=== PATIENT | female | born 1940 | race Caucasian/White ===

== ENCOUNTER 2025-02-07 14:09 | Emergency (ER) | payer OTHER, SELFPAY ==
[2025-02-07 14:12] VITALS: BP 135/94
[2025-02-07 14:46] LABS: Hematocrit 35.0 % (37.0-47.0); Hemoglobin 12.4 g/dL (12.0-16.0); Mean Corp Hgb Conc. 35.4 g/dL (33.0-37.0); Mean Corpuscular Volume 88.4 fL (81.0-99.0); Nucleated Red Blood Cells % 0 %; Platelet Count 205 10^3/uL (130-400); Red Cell Dist. Width 13.2 % (11.5-14.5)
[2025-02-07 15:10] LABS: ALT (SGPT) 63 U/L (0-35); AST (SGOT) 54 U/L (14-36); Albumin 4.5 g/dl (3.5-5.0); Alkaline Phosphatase 33 U/L (38-126); Blood Urea Nitrogen 16 mg/dl (7-17); Calcium 9.6 mg/dl (8.4-10.2); Carbon Dioxide 34 mmol/L (22-30); Chloride 97 mmol/L (98-107); Glucose 113 mg/dl (70-99); Potassium 3.9 mmol/L (3.5-5.1); Sodium 138 mmol/L (135-145); Total Protein 7.2 g/dl (6.3-8.2); eGFR > 60.00
--- NOTE | 2025-02-07 16:01 | ED.GENMED ---
History of Present Illness
General
Chief Complaint: Blood Pressure Problem
Time Seen by Provider: 02/07/25 16:01
History of Present Illness
History of Present Illness:
FOCUSED PAST MEDICAL HISTORY
- High blood pressure, pulmonary hypertension, diabetes
REVIEW OF OLD RECORDS
- I reviewed records, the patient had pulmonary function test through [facility] in 2021
Note:
CHIEF COMPLAINT(S)
Elevated blood pressure readings at home.
HISTORY OF PRESENT ILLNESS
The patient is an 84-year-old female with a history of pulmonary hypertension and recent cellulitis, presenting due to elevated blood pressure readings at home. She reports fluctuations in blood pressure over the past few months, with significant
changes in her antihypertensive medications. Initially, she switched from Propranolol to Carvedilol, had leg swelling on Amlodipine. She was also started on Lisinopril and Clonidine, with her current regimen including Carvedilol 25 mg twice daily,
Clonidine 0.1 mg twice daily, and Lisinopril 20 mg twice daily. Despite medication changes, her morning blood pressure was 229/118 mmHg, accompanied by a headache located at the back of her neck. Post-medication, blood pressure remained elevated at
202 mmHg.
The patient also takes Nifedipine in the form of 20 mg thrice daily and Sildenafil for pulmonary hypertension. She noted that Nifedipine causes a potential drop in her blood pressure. Additionally, she is on Optravi once in the morning. Current
vital sign readings in the clinic indicated variability, but manually obtained blood pressure reported at 140/60 mmHg, attributed potentially to artifact or alternative vessel noise.
Additional symptoms included headaches, which improved with acetaminophen. She attributes these headaches possibly to her CPAP machine but recognizes a connection with her high blood pressure. An additional dose of Clonidine was administered in the
clinic to manage acute elevation.
CHRONIC MEDICAL CONDITIONS SIGNIFICANTLY AFFECTING CARE
- Pulmonary hypertension
MEDICATIONS
- Carvedilol 25 mg twice daily
- Clonidine 0.1 mg twice daily
- Lisinopril 20 mg twice daily
- ???Nifedipine 20 mg three times daily�uncertain if she is taking it
- Sildenafil for pulmonary hypertension�only took 1 dose so far today of her normal 3 doses per day
- Optravi once in the morning
PHYSICAL EXAM
General: Alert, no acute distress.
Cardiovascular: Manually obtained blood pressure reported fluctuating; artifact noted.
Neurological: Notable neck headache, improved with acetaminophen.
PLAN
- Administer an extra dose of Clonidine 0.1 mg in the clinic to manage elevated blood pressure.
- Reassess blood pressure after administration of additional Clonidine.
- Consider adjusting medication regimen if not resolving or consistent blood pressure management is not achieved.
- Monitor for headache symptoms, particularly if associated with blood pressure elevation.
DIFFERENTIAL DIAGNOSIS
The differential diagnosis includes, in no particular order and is not limited to:
- Essential hypertension
- Secondary hypertension
- Hypertensive crisis
- Medication-induced hypertension fluctuation
- Cerebral vascular event
- Aneurysmal dilation
- Renal artery stenosis
- Adrenal mass or hyperactivity (e.g., pheochromocytoma)
- Coarctation of the aorta
- Pulmonary embolism
RADIOLOGY
-
EKG
- Sinus 79, bifascicular block with no old to compare
LABS
- White count and hemoglobin are normal, bicarb is 34, minor transaminase elevation
UPDATE
-SUMMARY OF ENCOUNTER
The patient, an 84-year-old female, presented to the emergency department due to concerns regarding elevated blood pressure readings at home. She is currently on a regimen of antihypertensive medications including Clonidine, Carvedilol, and
Lisinopril. Her main symptom was persistent headaches potentially related to her fluctuating blood pressure. In the emergency department, she received an additional dose of Clonidine to help reduce her blood pressure, which was initially reported as
high as 180/90 mmHg. Upon reassessment, her blood pressure showed signs of improvement, trending downward to around 178/80 mmHg. The decision was made not to conduct a CT scan, deemed low yield since her symptoms were controlled and improving.
DISPOSITION
Discharge
PLAN
The plan involves the patient increasing Clonidine dosing to three times daily to improve better blood pressure control. The patient was advised to have follow-up consultations with both a body and fender mechanic, Dr. Kidd, to specialize in blood pressure
management, and her gas welder, Dr. Matt Padilla, to ensure comprehensive cardiovascular care. She was instructed to monitor her blood pressure at home and encouraged to continue current antihypertensive regimen, including Carvedilol and
Lisinopril. Education was provided regarding the balancing act of treating high blood pressure without causing it to drop too low. The patient was advised to return if symptoms worsen or become concerning.
PATIENT EDUCATION AND COUNSELING
The patient was counseled on the importance of monitoring her blood pressure at home and understanding the balance between treating high blood pressure without causing low blood pressure. Information regarding the potential side effects of blood
pressure medications was provided. She was also educated about the significance of following up with specialized care providers to address her poorly controlled hypertension comprehensively.
FOLLOW-UP INSTRUCTIONS
The patient should follow up with the body and fender mechanic, Dr. Kidd, for specialized blood pressure management, and her gas welder, Dr. Matt Padilla. She was advised to continue monitoring her blood pressure at home and return to the emergency
department if symptoms like headaches persist or worsen.
MEDICATION RECONCILIATION
The patient received an additional dose of Clonidine in the emergency department. She was instructed to increase Clonidine to three times a day for ongoing management of hypertension, along with continuing her existing medications, Carvedilol and
Lisinopril.
MEDICAL DECISION MAKING
-Chronic conditions affecting care: Pulmonary hypertension.
-Data:
Category 1
No additional lab tests performed during this visit. Consideration of a CT scan was deemed unnecessary due to improvement in symptoms�patient states that her headache is nearly gone and significantly improved and she has a normal neurologic
examination.
Category 2
None
Category 3
Discussion of management with recommendations for follow-up with body and fender mechanic Dr. Alberto and gas welder for specialized hypertension management.
-Risk:
Consideration of Admission/Observation: Escalation of care including admission/observation was considered given the complexity and risk of the patients presenting complaint, exam findings, and/or their underlying comorbidities. However, ultimately I
feel the patient is safe for outpatient management with close follow-up. Reasoning: Work-up reassuring, does not reveal any acute life/organ-threatening processes, patients symptoms well-controlled upon reevaluation, reexamination is reassuring,
vitals are stable, patient agreeable with discharge, reliable for follow-up.
DIAGNOSIS
1. Essential Hypertension (I10)
2. Pulmonary Hypertension (I27.0)
I personally took another blood pressure manually and it was 178/80 prior to discharge.
Phy Exam
Physical Exam
Physical Exam:
See HPI
Course
Orders/Labs/Results
Orders:
Orders
02/07/25 14:20
Electrocardiogram (*1) Urgent
Reason for Study: Hypertension, Benign
EKG- Treatment ONCE
02/07/25 14:36
Complete Blood Count/With Diff Urgent
Comprehensive Metabolic Panel Urgent
Abnormal Lab Results
02/07/25
14:36
RBC 3.96 L 10^6/uL
(4.20-5.40)
Hct 35.0 L %
(37.0-47.0)
MCH 31.3 H pg
(27.0-31.0)
Absolute Lymphs (auto) 0.8 L 10^3/uL
(1.2-3.4)
Absolute Monos (auto) 1.0 H 10^3/uL
(0.1-0.6)
Lymphocytes % 10.5 L %
(20.5-51.1)
Monocytes % 12.1 H %
(1.7-9.3)
Chloride 97 L mmol/L
(98-107)
Carbon Dioxide 34 H mmol/L
(22-30)
Glucose 113 H mg/dl
(70-99)
AST 54 H U/L
(14-36)
ALT 63 H U/L
(0-35)
Alkaline Phosphatase 33 L U/L
(38-126)
02/07/25 14:36
02/07/25 14:36
Vital Signs
Initial and Last Documented VS:
Initial Vital Signs
Temp Pulse Resp BP Pulse Ox
36.7 C 76 16 135/94 98
02/07/25 14:12 02/07/25 14:12 02/07/25 14:12 02/07/25 14:12 02/07/25 14:12
Last Documented Vital Signs
Temp Pulse Resp BP Pulse Ox
36.7 C 76 16 180/77 98
02/07/25 14:12 02/07/25 14:12 02/07/25 14:12 02/07/25 17:03 02/07/25 16:03
*Pulse Oximetry
SaO2: 98
Oxygen Mode of Delivery: Room air
Patient hypoxic: no
*Critical Care Note
Total Time (30-74mins, 75-104mins- exclusive of procedures): Not Applicable
ED Attending Note
-
Portions of this chart may have been created with voice recognition software.� Occasional wrong word or��sound alike� substitutions may have occurred due to the inherent limitations of voice recognition software.
Discharge Plan
Departure
Patient Disposition: Home (Routine Discharge)
Date of Disposition: 02/07/25
Time of Disposition: 17:49
Patient with high blood pressure during this ER visit?: Yes
Discharge Problem:
High blood pressure
Instructions: High Blood Pressure (DC), BLOOD PRESSURE
Referrals:
Antonino Alberto DO [Active, Nephrology]
Bharat Walton MD [Family Provider, Internal Medicine]
Activity Restrictions/Additional Instructions:
I have given you the contact information for a body and fender mechanic (hypertensive specialist)-Dr. Alberto. For now, I recommend that you increase the clonidine to 3 times per day. You can take the middle dose at some point in the afternoon. Return here
if worse or other concerns. Your kidney function is normal.
Interventions
Interventions:
*Risk Screen - Suicide Last Done: 02/07/25 14:12
*General Assessment Last Done: 02/07/25 16:31
*Neglect/Abuse Screening Last Done: 02/07/25 14:12
*ED- Fall Risk Assessment Last Done: 02/07/25 16:31
*ED COVID-19 Vaccine History Last Done: 02/07/25 16:31
*ED Influenza Vaccine History Last Done: 02/07/25 16:31
ED- Cardiac Assessment Last Done: 02/07/25 16:31
ED- Neurological Assessment Last Done: 02/07/25 16:31
ED- Pulmonary Assessment Last Done: 02/07/25 16:31
Discharge Date and Time
Print Language: FRENCH
[2025-02-07 16:30] VITALS: BP 144/89; BP 208/98; BP 211/89
[2025-02-07 17:03] VITALS: BP 180/77
== END 2025-02-07 18:36 | disposition home or self-care (01) ==
LOC: EMR 14:09
PROVIDERS: EMERGENCY PHYSICIAN Emergency Medicine; FAMILY PHYSICIAN Internal Medicine
DX: I10 Essential (primary) hypertension (principal); I27.20 Pulmonary hypertension, unspecified; E11.9 Type 2 diabetes mellitus without complications; Z79.899 Other long term (current) drug therapy
CPT/HCPCS: 99284; 80053; 85025; 93005

== ENCOUNTER 2025-02-26 21:19 | Inpatient (IN) | payer OTHER, SELFPAY ==
[2025-02-26] VITALS (7 sets, daily range): BP systolic 134–213; BP diastolic 64–118; BMI 31.4
[2025-02-26 17:29] LABS: Glucose - Point of Care 230 mg/dl (70-99)
[2025-02-26 18:45] LABS: ALT (SGPT) 50 U/L (0-35); AST (SGOT) 55 U/L (14-36); Albumin 4.4 g/dl (3.5-5.0); Alkaline Phosphatase 37 U/L (38-126); Blood Urea Nitrogen 37 mg/dl (7-17); Calcium 9.6 mg/dl (8.4-10.2); Carbon Dioxide 34 mmol/L (22-30); Chloride 77 mmol/L (98-107); Glucose 198 mg/dl (70-99); Potassium 3.6 mmol/L (3.5-5.1); Sodium 115 mmol/L (135-145); Total Protein 6.9 g/dl (6.3-8.2); eGFR 55.55
--- NOTE | 2025-02-26 18:48 | ED.GENMED ---
History of Present Illness
<Rayshawn Maldonado PA-C - Last Filed: 02/26/25 19:42>
General
Chief Complaint: Weakness
Source: patient
Exam Limitations: none
Time Seen by Provider: 02/26/25 18:20
History of Present Illness
History of Present Illness:
84-year-old female presents from home where she lives with her after experiencing generalized weakness. She describes episodes of vomiting 2 days ago. She has been eating lightly since then. She is followed by nephrology for her
hypertension. She states she has been urinating frequently. She hit her head when she fell today. She notes a bump to the back of her head. She denies chest pain or shortness of breath. She notes generalized weakness.
Phy Exam
<Rayshawn Maldonado PA-C - Last Filed: 02/26/25 19:42>
Physical Exam
Physical Exam:
General: Well-appearing female no acute respiratory distress
HEENT: Normal cephalic hematoma noted to the back of the head
Heart: Regular rate and rhythm
Lungs: Clear no wheeze
Course
<Rayshawn Maldonado PA-C - Last Filed: 02/26/25 19:42>
Orders/Labs/Results
Orders:
Orders
02/26/25 15:01
EKG [Electrocardiogram (*1)] Urgent
Reason for Study: Fatigue / Weakness
EKG- Treatment ONCE
02/26/25 17:25
Bedside Glucose- Treatment ONCE
02/26/25 17:46
CBC/With Diff [Complete Blood Count/With Diff] Routine
CMP [Comprehensive Metabolic Panel] Urgent
Serum Osmolality Urgent
Comment: ADD ON
02/26/25 18:43
CT Cervical Spine W/o Iv Contr Urgent
Comment:
Reason For Exam: fall
CT Head W/o Iv Contrast Urgent
Comment:
Reason For Exam: fall
STOOL [C difficile Antigen & Toxins] Urgent
JUAN Source: Feces/Stool
Specimen Description:
Stool Culture Urgent
JUAN Source: Feces/Stool
Specimen Description:
02/26/25 18:47
Add On- LAB Urgent
Tests Added?: serum osm
02/26/25 18:56
Osmolality, Random Urine Urgent
Date Specimen was Collected: 02/26/25
Time Specimen was Collected: 18:53
Urinalysis Reflex To Culture Urgent
Date Specimen was Collected: 02/26/25
Time Specimen was Collected: 18:53
Urine Microscopic Reflex Cult Urgent
Urine Sodium Urgent
Date Specimen was Collected: 02/26/25
Time Specimen was Collected: 18:53
Urine Culture Urgent
JUAN Source: U
Specimen Description:
Date Specimen was Collected: 02/26/25
Time Specimen was Collected: 18:53
02/26/25 19:08
CR Chest - 2 Views Urgent
Comment:
Reason For Exam: weakness
02/26/25 19:31
NT-proBNP Urgent
02/26/25 20:00
3% Sodium Chloride 250 ml [Sodium Chloride 3%] 250 ml IV ONCE
Abnormal Lab Results
02/26/25 02/26/25 02/26/25
17:27 17:46 18:56
WBC 12.8 H 10^3/uL
(4.8-10.8)
RBC 3.93 L 10^6/uL
(4.20-5.40)
Hct 33.1 L %
(37.0-47.0)
MCH 31.3 H pg
(27.0-31.0)
MCHC 37.2 H g/dL
(33.0-37.0)
Abs Immat Gran (auto) 0.1 H 10^3/uL
(0-0.05)
Absolute Neuts (auto) 11.1 H 10^3/uL
(1.4-6.5)
Absolute Lymphs (auto) 0.6 L 10^3/uL
(1.2-3.4)
Absolute Monos (auto) 1.0 H 10^3/uL
(0.1-0.6)
Neutrophils % 86.5 H %
(42.2-75.2)
Lymphocytes % 4.4 L %
(20.5-51.1)
Sodium 115 L* mmol/L
(135-145)
Chloride 77 L mmol/L
(98-107)
Carbon Dioxide 34 H mmol/L
(22-30)
BUN 37 H mg/dl
(7-17)
Glucose 198 H mg/dl
(70-99)
Serum Osmolality 261 L mOsm/kg
(275-300)
AST 55 H U/L
(14-36)
ALT 50 H U/L
(0-35)
Alkaline Phosphatase 37 L U/L
(38-126)
Ur Occult Blood Reflex 2+ A
(Negative)
Leukocyte Esterase Rfl 3+ A
(Negative)
Urine WBC (Reflex) 60-70 A /HPF
(0-5)
Urine Bacteria (Reflex) Many A
(Negative)
Urine Osmolality 203 L mOsm/kg
(300-900)
Urine Albumin (Reflex) 1+ A
(Neg - Trace)
POC Glucose 230 H mg/dl
(70-99)
02/26/25 17:46
02/26/25 17:46
Vital Signs
Initial and Last Documented VS:
Initial Vital Signs
Temp Pulse Resp BP Pulse Ox
98.2 F 58 14 168/70 100
02/26/25 14:52 02/26/25 14:52 02/26/25 14:52 02/26/25 14:52 02/26/25 14:52
Last Documented Vital Signs
Temp Pulse Resp BP Pulse Ox
98.4 F 66 20 167/107 98
02/26/25 19:20 02/26/25 19:20 02/26/25 19:20 02/26/25 19:18 02/26/25 19:21
<Fausto Kiran, DO - Last Filed: 02/26/25 18:59>
Orders/Labs/Results
Orders:
Orders
02/26/25 15:01
EKG [Electrocardiogram (*1)] Urgent
Reason for Study: Fatigue / Weakness
EKG- Treatment ONCE
02/26/25 17:25
Bedside Glucose- Treatment ONCE
02/26/25 17:46
CBC/With Diff [Complete Blood Count/With Diff] Routine
CMP [Comprehensive Metabolic Panel] Urgent
Serum Osmolality Urgent
Comment: ADD ON
02/26/25 18:43
CT Cervical Spine W/o Iv Contr Urgent
Comment:
Reason For Exam: fall
CT Head W/o Iv Contrast Urgent
Comment:
Reason For Exam: fall
STOOL [C difficile Antigen & Toxins] Urgent
JUAN Source: Feces/Stool
Specimen Description:
Stool Culture Urgent
JUAN Source: Feces/Stool
Specimen Description:
02/26/25 18:47
Add On- LAB Urgent
Tests Added?: serum osm
02/26/25 18:56
Osmolality, Random Urine Urgent
Date Specimen was Collected: 02/26/25
Time Specimen was Collected: 18:53
Urinalysis Reflex To Culture Urgent
Date Specimen was Collected: 02/26/25
Time Specimen was Collected: 18:53
Urine Microscopic Reflex Cult Urgent
Urine Sodium Urgent
Date Specimen was Collected: 02/26/25
Time Specimen was Collected: 18:53
Urine Culture Urgent
JUAN Source: U
Specimen Description:
Date Specimen was Collected: 02/26/25
Time Specimen was Collected: 18:53
02/26/25 19:08
CR Chest - 2 Views Urgent
Comment:
Reason For Exam: weakness
02/26/25 19:31
NT-proBNP Urgent
02/26/25 20:00
3% Sodium Chloride 250 ml [Sodium Chloride 3%] 250 ml IV ONCE
Abnormal Lab Results
02/26/25 02/26/25 02/26/25
17:27 17:46 18:56
WBC 12.8 H 10^3/uL
(4.8-10.8)
RBC 3.93 L 10^6/uL
(4.20-5.40)
Hct 33.1 L %
(37.0-47.0)
MCH 31.3 H pg
(27.0-31.0)
MCHC 37.2 H g/dL
(33.0-37.0)
Abs Immat Gran (auto) 0.1 H 10^3/uL
(0-0.05)
Absolute Neuts (auto) 11.1 H 10^3/uL
(1.4-6.5)
Absolute Lymphs (auto) 0.6 L 10^3/uL
(1.2-3.4)
Absolute Monos (auto) 1.0 H 10^3/uL
(0.1-0.6)
Neutrophils % 86.5 H %
(42.2-75.2)
Lymphocytes % 4.4 L %
(20.5-51.1)
Sodium 115 L* mmol/L
(135-145)
Chloride 77 L mmol/L
(98-107)
Carbon Dioxide 34 H mmol/L
(22-30)
BUN 37 H mg/dl
(7-17)
Glucose 198 H mg/dl
(70-99)
Serum Osmolality 261 L mOsm/kg
(275-300)
AST 55 H U/L
(14-36)
ALT 50 H U/L
(0-35)
Alkaline Phosphatase 37 L U/L
(38-126)
Ur Occult Blood Reflex 2+ A
(Negative)
Leukocyte Esterase Rfl 3+ A
(Negative)
Urine WBC (Reflex) 60-70 A /HPF
(0-5)
Urine Bacteria (Reflex) Many A
(Negative)
Urine Osmolality 203 L mOsm/kg
(300-900)
Urine Albumin (Reflex) 1+ A
(Neg - Trace)
POC Glucose 230 H mg/dl
(70-99)
02/26/25 17:46
02/26/25 17:46
Vital Signs
Initial and Last Documented VS:
Initial Vital Signs
Temp Pulse Resp BP Pulse Ox
98.2 F 58 14 168/70 100
02/26/25 14:52 02/26/25 14:52 02/26/25 14:52 02/26/25 14:52 02/26/25 14:52
Last Documented Vital Signs
Temp Pulse Resp BP Pulse Ox
98.4 F 66 20 167/107 98
02/26/25 19:20 02/26/25 19:20 02/26/25 19:20 02/26/25 19:18 02/26/25 19:21
Ajaylt;Rayshawn Maldonado PA-C - Last Filed: 02/26/25 19:42>
*Pulse Oximetry
SaO2: 100
Oxygen Mode of Delivery: Room air
Patient hypoxic: no
*Critical Care Note
Total Time (30-74mins, 75-104mins- exclusive of procedures): Not Applicable
<Rayshawn Maldonado PA-C - Last Filed: 02/26/25 19:42>
Update Note
Update Note:
Sodium noted to be 115 today which was 138 at the beginning of the month. I suspect this is the source of her weakness causing her falls. CT of the head was positive for scalp hematoma but no fracture of the skull or intracranial hemorrhage.
Discussed with nephrology who recommended hypertonic saline which was ordered. Admit to hospital for weakness secondary to acute hyponatremia
ED Attending Note
<Rayshawn Maldonado PA-C - Last Filed: 02/26/25 19:42>
-
Portions of this chart may have been created with voice recognition software.� Occasional wrong word or��sound alike� substitutions may have occurred due to the inherent limitations of voice recognition software.
<Fausto Kiran DO - Last Filed: 02/26/25 18:59>
ED Attending Note
Patient seen and examined by attending physician: Yes
I performed the substantive portion of visit, reviewed & personally made and approve the management plan that is documented in note by myself or FAVIO.: Yes
ED Attending Note:
I spoke to family at bedside, the patient's sodium is 115. She is on hydrochlorothiazide. Planning admission to the hospital
Discharge Plan
Departure
Patient Disposition: Admit
Date of Disposition: 02/26/25
Time of Disposition: 19:41
Presentation/result/management discussed w/ accepting MD/DO: Hospitalist
Discharge Problem:
Acute hyponatremia
Referrals:
Bharat Walton MD [Family Provider, Internal Medicine]
Interventions
Interventions:
*Risk Screen - Suicide Last Done: 02/26/25 14:52
*General Assessment Last Done: 02/26/25 14:52
*Neglect/Abuse Screening Last Done: 02/26/25 14:52
*ED COVID-19 Vaccine History Last Done: 02/26/25 14:52
*ED Influenza Vaccine History Last Done: 02/26/25 14:52
ED- Cardiac Assessment Last Done: 02/26/25 19:23
ED- Neurological Assessment Last Done: 02/26/25 19:22
ED- Pulmonary Assessment Last Done: 02/26/25 19:21
Discharge Date and Time
Print Language: DIVEHI
[2025-02-26 19:08] LABS: Urine Character Clear (Clear)
[2025-02-26 19:10] LABS: Hematocrit 33.1 % (37.0-47.0); Hemoglobin 12.3 g/dL (12.0-16.0); Mean Corp Hgb Conc. 37.2 g/dL (33.0-37.0); Mean Corpuscular Volume 84.2 fL (81.0-99.0); Nucleated Red Blood Cells % 0 %; Platelet Count 232 10^3/uL (130-400); Red Cell Dist. Width 12.8 % (11.5-14.5)
[2025-02-26 19:14] LABS: Urine Squamous Cell 0-2 /LPF (Few); Urine Urothelial Cell 0-2 /LPF (FEW)
[2025-02-26 19:15] LABS: Urine Red Blood Cell 0-2 /HPF (0-2); Urine White Cell 60-70 /HPF (0-5)
[2025-02-26] MEDS: SODIUM CHLORIDE 3% 250 IV (19:44)
--- NOTE | 2025-02-26 19:49 | HPS.HSE ---
Addendum entered and electronically signed by Cali Dykes DO 02/26/25 21:57:
Patient seen and examined independently. Agree with findings and plan as set forth by ISMAEL Ugarte.
Patient is an 84y F with PMH significant for hypertension, pulmonary hypertension, HFpEF and DM-II who presents to ED for evaluation of weakness with fall x 2 today. Patient reports episode of N/v/D on Tuesday lasting about 24 hours. No
recurrent GI symptoms since that time. Today she felt generally weak / fatigued. She fell leaving her home and struck the back of her head. She did not lose consciousness. She continued on to her physician appointment. Upon return home, she
continued to feel weak and had another fall without significant injury. She then presented to the ED for further evaluation.
Patient has had issues recently with poorly controlled hypertension.
She has been seen by Nephrology and has had several med changes of late including increases in clonidine, HCTZ and carvedilol.
Ass:
Acute Symptomatic Hyponatremia
Weakness / Falls secondary to the above
Scalp Hematoma secondary to the above
Multidrug Resistant Hypertension
Pulmonary Hypertension
Chronic HFpEF
Hypothyroidism
DM-II
Rheumatoid Arthritis
Plan:
Admit for further evaluation and treatment.
3% saline for now given acute, symptomatic hyponatremia.
Suspect acute hyponatremia due to med changes plus volume losses from recent '24 hour GI bug'.
Follow serial Na levels for improvement.
Nephrology evaluation for additional recommendations.
Hold HCTZ and Lasix for now.
Continue other med regimen.
PT evaluation.
Original Note:
Family Physician
-
Family Physician: Bharat Walton
Chief Complaint
-
generalized weakness
History of Present Illness
Patient is a 84-year-old female with past medical history significant for hypertension, hyperlipidemia, pulmonary hypertension, HFpEF, hypothyroidism and IDDM who presented to [facility] ED for evaluation of generalized weakness. Patient reports that
earlier today she felt that she was unable to stand or ambulate without assistance from her spouse and did up sustaining two falls. Patient reports nausea, vomiting and diarrhea for most of the day on Tuesday and has since resolved. She reports that
she drinks approximately 60 ounces of water and 16 ounces of apple juice per day. She has been seeing primary doctor, event sales assistant and appointment scheduled with nephrology for uncontrolled BP and recent changes in medications (was not specific of
recent changes). She denies any fever, chills, cough, shortness of breath, chest pain, confusion or dizziness.
Medical History
Past Medical History
Past Medical History: Reports Other
Additional Past Medical History:
hypertension
hyperlipidemia
pulmonary hypertension
HFpEF
hypothyroidism
IDDM
interstitial lung disease
supraventricular tachycardia
rheumatoid arthritis
Past Surgical History: Reports Other
Additional Past Surgical History:
cholecystectomy
appendectomy
blader repair
varicose veins
Social History
Tobacco: Non-smoker
Alcohol: None
Personal:
Living: With Family
Family History
Family History: Not pertinent
Allergies / Home Medications
Allergies reflects when Allergies were last updated in [facility].
Home Medications with original date entered in [facility]
Allergy/Medication List:
Allergies
Allergy/AdvReac Type Severity Reaction Status Date / Time
nitrofurantoin (From Allergy Unknown Verified 02/07/25 14:19
Macrodantin)
phenobarbital Allergy Unknown Verified 02/07/25 14:19
Home Medications
carvedilol 25 mg tablet 25 mg PO BID 02/26/25
cholecalciferol (vitamin D3) 50 mcg (2,000 unit) tablet (Vitamin D3) 50 mcg PO DAILY 02/26/25
clonidine HCl 0.2 mg tablet 0.2 mg PO TID 02/26/25
furosemide 40 mg tablet 80 mg PO NOON 02/26/25
hydrochlorothiazide 25 mg tablet 25 mg PO DAILY 02/26/25
hydroxychloroquine 200 mg tablet 400 mg PO NOON 02/26/25
insulin degludec 100 unit/mL subcutaneous solution (Tresiba U-100 Insulin) 10 unit SC DAILY 02/26/25
levothyroxine 200 mcg tablet 200 mcg PO DAILY 02/26/25
lisinopril 40 mg tablet 40 mg PO DAILY 02/26/25
hjxcaicj-qwox-anps 8 mg-folic 400 mcg-K 50 mcg-lutein 300 mcg tablet (Centrum Silver Women) 1 tab PO DAILY 02/26/25
potassium chloride 10 mEq capsule,extended release 20 meq PO NOON 02/26/25
prednisone 5 mg tablet 7.5 mg PO DAILY 02/26/25
psyllium 1 packet PO DAILY 02/26/25
rosuvastatin 20 mg tablet 20 mg PO QPM 02/26/25
selexipag 1,000 mcg tablet (Uptravi) 1,000 mcg PO BID 02/26/25
sildenafil (pulm.hypertension) 20 mg tablet 20 mg PO TID 02/26/25
tocilizumab 162 mg/0.9 mL subcutaneous syringe (Actemra) 162 mg SC QWEEK 02/26/25
Review of Systems
-
History Source: Patient
Constitutional: Denies Fever or Chills
EENT: Denies Sore Throat
Respiratory: Denies Cough, Hemoptysis or Trouble Breathing
Cardiac: Denies Chest Pain, Diaphoresis, Palpitations or Syncope
Abdomen/GI: Reports Nausea, Vomiting and Diarrhea; Denies Abdominal Pain
: Denies Dysuria, Frequency or Urgency
Musculoskeletal: Denies Joint Pain
Skin: Denies Rash
Neurological: Reports Weakness; Denies Dizzy, Headache or Numbness
Hematologic/Lymphatic: Denies Bleeding
Physical Exam
Vital Signs
Vital Signs
Temp Pulse Resp BP Pulse Ox
98.4 F 66 20 167/107 98
02/26/25 19:20 02/26/25 19:20 02/26/25 19:20 02/26/25 19:18 02/26/25 19:21
Physical Exam
General: Well Developed, Well Nourished, No Apparent Distress, Comfortable, Conversant and Obese
HEENT: NormoCephalic, Moist mucous membranes, Nose Appears Normal and Ears Appear Normal
Respiratory: Clear, Non Labored Respirations and Decreased Breath Sounds
Cardiac: S1/S2 and Regular Rhythm; No Murmur
GI: Soft, Non Tender, Non Distended and Normal Bowel Sounds
Musculoskeletal: No Clubbing, No Cyanosis and No Edema
Skin: IV/Catheter Site
Neuro: Awake and AO x 3
Psych: Calm and Intact Judgment/Insight
Laboratory Results
-
02/26/25 17:46
02/26/25 17:46
Laboratory Results
Total Bilirubin 1.2 mg/dl (0.2-1.3) 02/26/25 17:46
AST 55 U/L (14-36) H 02/26/25 17:46
ALT 50 U/L (0-35) H 02/26/25 17:46
Alkaline Phosphatase 37 U/L (38-126) L 02/26/25 17:46
Data Reviewed
-
Diagnostic Radiology: Report Reviewed by me (C-spine: 1. Severe 6 mm anterolisthesis of C3 on C4. 2. Severe right-sided facet joint arthrosis at C3/C4 and C4/C5. 3. Severe discogenic degenerative disease at C3/C4 through C7/T1. 4. Mild
multilevel spinal cord compression and central canal stenosis. 5. Severe bilateral neural foraminal)
CT Scan: Report Reviewed by me (head; 1. 2.0 cm ACUTE SCALP SOFT TISSUE HEMATOMA in the midline posterior to the parietal bones. 2. No CT evidence for acute intracranial hemorrhage. 3. 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
hemispheres. 4. 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
Medical Tests (Nuc Med, Echo, EKG etc): Report Reviewed by me (EKG: SINUS RHYTHM WITH 1ST DEGREE A-V BLOCK RIGHT BUNDLE BRANCH BLOCK LEFT ANTERIOR FASCICULAR BLOCK BIFASCICULAR BLOCK MINIMAL VOLTAGE CRITERIA FOR LVH, MAY BE NORMAL VARIANT (
R in aVL ))
Lab Data: Labs Reviewed by me (WBC 12.8, Neut 86.5, Na+ 115, Chl 77, HCO3 34, BUN 37, Creat 1.0, eGFR 55.55, serum osmo 261, AST 55, ALT 50, alk phos 37)
Impression/Plan
-
IMPRESSION/PLAN:
#generalized weakness with 2 falls today likely 2/2 acute hyponatremia
WBC 12.8, Neut 86.5, Na+ 115, Chl 77, HCO3 34, BUN 37, Creat 1.0, eGFR 55.55, serum osmo 261, AST 55, ALT 50, alk phos 37
EKG: SINUS RHYTHM WITH 1ST DEGREE A-V BLOCK
RIGHT BUNDLE BRANCH BLOCK
LEFT ANTERIOR FASCICULAR BLOCK
BIFASCICULAR BLOCK
MINIMAL VOLTAGE CRITERIA FOR LVH, MAY BE NORMAL VARIANT ( R in aVL )
c-spine x-ray: 1. Severe 6 mm anterolisthesis of C3 on C4.
2. Severe right-sided facet joint arthrosis at C3/C4 and C4/C5.
3. Severe discogenic degenerative disease at C3/C4 through C7/T1.
4. Mild multilevel spinal cord compression and central canal stenosis.
5. Severe bilateral neural foraminal narrowing at C3/C4.
6. Severe right neural foraminal narrowing at C4/C5.
7. Severe left neural foraminal narrowing at C5/C6.
8. 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
Head CT: 1. 2.0 cm ACUTE SCALP SOFT TISSUE HEMATOMA in the midline posterior to the parietal bones.
2. No CT evidence for acute intracranial hemorrhage.
3. SEVERE WHITE MATTER LEUKOARAIOSIS in both cerebral hemispheres.
4. 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
5. Moderate vertebrobasilar dolichoectasia.
6. VERY SEVERE BILATERAL MAXILLARY and RIGHT SPHENOID SINUSITIS.
- Admit to telemetry
- Consult Nephrology
- 3% saline
- q4 Na+
- fluid restriction
#hypertension
- continue carvedilol, clonidine, lisinopril
- hold
#pulmonary hypertension
- continue selexipag and sildenafil
#hyperlipidemia
- continue rosuvastatin
#HFpEF
- I & Os
- daily weights
- fluid restriction
- hold furosemide and hydrochlorothiazide
- continue potassium chloride
#hypothyroidism
- continue levothyroxine
#IDDM
- AccuCheck SC & HS
- SSI
- continue Tresiba
#rheumatoid arthritis
- continue hydroxychloroquine and prednisone
Code status: full code
DVT prophylaxis: heparin sq
[2025-02-26 22:23] LABS: Glucose - Point of Care 185 mg/dl (70-99)
[2025-02-26 22:29] LABS: Sodium 118 mmol/L (135-145)
[2025-02-26] MEDS: HEPARIN 5000 UNITS SC (22:56)
[2025-02-26] MEDS: REVATIO 20 MG PO (22:56)
[2025-02-26] MEDS: CATAPRES 0.2 MG PO (22:56)
[2025-02-26 23:45] LABS: COVID-19 Antigen Negative (Negative)
[2025-02-27] VITALS (7 sets, daily range): BP systolic 116–177; BP diastolic 50–80; PULSE 50–72; O2SAT 99; BMI 31.4
--- NOTE | 2025-02-27 02:21 | DOWNTIME ---
There was a [employer] Downtime on 02/27/2025 from 0100 to 02/27/2025 at 0215. Downtime documentation of patient's care, including medication administrations, has been reconciled in the electronic record per guidelines. Refer to the
patient's paper chart under the miscellaneous tab to see printed paper medication records and downtime forms.
[2025-02-27] MEDS: TYLENOL 650 MG PO ×3 (02:22→21:26)
[2025-02-27 02:27] LABS: Sodium 120 mmol/L (135-145)
[2025-02-27] MEDS: SYNTHROID 200 MCG PO (05:05)
[2025-02-27 05:28] LABS: Hematocrit 29.0 % (37.0-47.0); Hemoglobin 10.6 g/dL (12.0-16.0); Mean Corp Hgb Conc. 36.6 g/dL (33.0-37.0); Mean Corpuscular Volume 85.5 fL (81.0-99.0); Platelet Count 159 10^3/uL (130-400); Red Cell Dist. Width 12.8 % (11.5-14.5)
[2025-02-27 05:58] LABS: Blood Urea Nitrogen 34 mg/dl (7-17); Calcium 9.2 mg/dl (8.4-10.2); Carbon Dioxide 35 mmol/L (22-30); Chloride 85 mmol/L (98-107); Estimated Creatinine Clearance 32 ml/min; Glucose 140 mg/dl (70-99); Potassium 3.2 mmol/L (3.5-5.1); Sodium 125 mmol/L (135-145); eGFR 44.64
[2025-02-27 06:29] LABS: TSH 0.89 uIU/ml (0.47-4.68)
[2025-02-27] MEDS: KCL 40 MEQ PO (06:33)
[2025-02-27] MEDS: DELTASONE 7.5 MG PO (07:32)
[2025-02-27] MEDS: HEPARIN 5000 UNITS SC ×3 (07:34→23:44)
[2025-02-27] MEDS: METAMUCIL, KONSYL 1 PACKET PO (07:35)
[2025-02-27] MEDS: VITAMIN D3 (cholecalciferol) 50 MCG PO (07:41)
[2025-02-27] MEDS: NOVOLOG FLEXPEN-LOW RESISTANCE 1 UNITS SC (07:41)
[2025-02-27] MEDS: LANTUS 0.1 UNITS SC (07:41)
[2025-02-27] MEDS: ZESTRIL 40 MG PO (07:42)
[2025-02-27] MEDS: COREG 25 MG PO ×2 (07:43→19:53)
[2025-02-27] MEDS: NON-FORMULARY ITEM 1000 MCG PO ×2 (07:44→19:53)
[2025-02-27] MEDS: THERAGRAN 1 TABLET PO (07:44)
[2025-02-27 07:50] LABS: Glucose - Point of Care 160 mg/dl (70-99)
[2025-02-27 08:39] LABS: Glycohemoglobin (HgbA1c) 6.7 % (4.0-5.6)
[2025-02-27] MEDS: REVATIO 20 MG PO ×3 (08:58→21:19)
[2025-02-27] MEDS: CATAPRES 0.2 MG PO ×3 (08:58→21:19)
[2025-02-27] MEDS: KCL 270 MEQ IV (08:59)
[2025-02-27 10:07] LABS: Magnesium 1.5 mg/dl (1.6-2.3); Sodium 126 mmol/L (135-145)
[2025-02-27 10:13] LABS: Blood Urea Nitrogen 30 mg/dl (7-17); Calcium 9.3 mg/dl (8.4-10.2); Carbon Dioxide 35 mmol/L (22-30); Chloride 85 mmol/L (98-107); Estimated Creatinine Clearance 35 ml/min; Glucose 160 mg/dl (70-99); Potassium 3.6 mmol/L (3.5-5.1); Sodium 123 mmol/L (135-145); eGFR 49.55
[2025-02-27] MEDS: D5W 1000 IV (10:26)
--- NOTE | 2025-02-27 11:10 | W.CON.NEPH ---
Consultation
-
Date/Time Consultation Requested: February 26, 2025 at 1800
Date/Time Consultation Performed: February 27, 2025 at 9 AM
Requesting Provider: Rayshawn Maldonado
Performing Provider: Dr. Glover
Reason for Consultation: Hyponatremia
Medical History
-
Chief Complaint: Hyponatremia
History of Present Illness:
84-year-old female with past medical history significant for hypertension, hyperlipidemia, pulmonary hypertension, HFpEF, hypothyroidism and IDDM who presented to [facility] ED for evaluation of generalized weakness. Patient reports that yesterday she
felt that she was unable to stand or ambulate without assistance from her spouse and did up sustaining two falls.
Renal consultation for hyponatremia of 115 overcorrected to 126
Patient is alert at baseline no nausea vomiting
Patient follows with me outpatient for blood pressure I recently saw her few weeks ago for blood pressure some mild the changes were made in terms of timing of her lisinopril. Cardiology prescribed hydrochlorothiazide which she is new for her..
Per her at the bedside she was incoherent during this event but has improved to her baseline
Past Medical History
Past medical history significant for hypertension, hyperlipidemia, pulmonary hypertension, HFpEF, hypothyroidism and IDDM
Social History
Tobacco: Non-Smoker
Alcohol: None
Personal:
Living: With Family
Family History
Family History: Not Pertinent
Allergies / Home Medications
Allergy/AdvReac Type Severity Reaction Status Date / Time
nitrofurantoin (From Allergy Unknown Verified 02/07/25 14:19
Macrodantin)
phenobarbital Allergy Unknown Verified 02/07/25 14:19
�Medication �Instructions �Recorded �Confirmed �Type
carvedilol 25 mg tablet 25 mg PO BID 02/26/25 02/26/25 History
cholecalciferol (vitamin D3) 50 50 mcg PO DAILY 02/26/25 02/26/25 History
mcg (2,000 unit) tablet (Vitamin
D3)
clonidine HCl 0.2 mg tablet 0.2 mg PO TID 02/26/25 02/26/25 History
furosemide 40 mg tablet 80 mg PO NOON 02/26/25 02/26/25 History
hydrochlorothiazide 25 mg tablet 25 mg PO DAILY 02/26/25 02/26/25 History
hydroxychloroquine 200 mg tablet 400 mg PO NOON 02/26/25 02/26/25 History
insulin degludec 100 unit/mL 10 unit SC DAILY 02/26/25 02/26/25 History
subcutaneous solution (Tresiba
U-100 Insulin)
levothyroxine 200 mcg tablet 200 mcg PO DAILY 02/26/25 02/26/25 History
lisinopril 40 mg tablet 40 mg PO DAILY 02/26/25 02/26/25 History
mzttznoo-lwvq-tvap 8 mg-folic 400 1 tab PO DAILY 02/26/25 02/26/25 History
mcg-K 50 mcg-lutein 300 mcg tablet
(Centrum Silver Women)
potassium chloride 10 mEq 20 meq PO NOON 02/26/25 02/26/25 History
capsule,extended release
prednisone 5 mg tablet 7.5 mg PO DAILY 02/26/25 02/26/25 History
psyllium 1 packet PO DAILY 02/26/25 02/26/25 History
rosuvastatin 20 mg tablet 20 mg PO QPM 02/26/25 02/26/25 History
selexipag 1,000 mcg tablet 1,000 mcg PO BID 02/26/25 02/26/25 History
(Uptravi)
sildenafil (pulm.hypertension) 20 20 mg PO TID 02/26/25 02/26/25 History
mg tablet
tocilizumab 162 mg/0.9 mL 162 mg SC QWEEK 02/26/25 02/26/25 History
subcutaneous syringe (Actemra)
Review of Systems
-
Denies nausea vomiting.
All other systems: Negative unless noted
Physical Exam
Vital Signs
Vital Signs
Temp Pulse Resp BP Pulse Ox
98.0 F 68 20 116/72 99
02/27/25 08:00 02/27/25 08:58 02/27/25 08:00 02/27/25 08:58 02/27/25 08:00
Lab Results
WBC 8.3 10^3/uL (4.8-10.8) 02/27/25 05:14
RBC 3.39 10^6/uL (4.20-5.40) L 02/27/25 05:14
Hgb 10.6 g/dL (12.0-16.0) L 02/27/25 05:14
Hct 29.0 % (37.0-47.0) L 02/27/25 05:14
Plt Count 159 10^3/uL (130-400) D 02/27/25 05:14
Sodium Cancelled 02/27/25 17:51
eGFR Cancelled 02/27/25 09:42
Ytg-D-Lofdzyaqfxb Pept 854 pg/ml 02/26/25 19:31
Albumin 4.4 g/dl (3.5-5.0) 02/26/25 17:46
Physical Exam
General no acute distress
HEENT no cephalic atraumatic extraocular muscle intact no scleral icterus no JVD neck supple
lungs crackles on the right
heart regular S1-S2 positive
abdomen soft nontender positive bowel sounds
extremities no edema pulses present bilateral
Neurologically nonfocal alert and oriented x 3
Skin no lesions no abrasions no petechiae
Psych normal affect no bizarre behavior
Data Reviewed
-
Radiology: Image Personally Visualized and interpreted
Labs: Labs Reviewed by me, Discussed with Nurse, Discussed with Patient and Discussed with Family
Assessment/Plan
-
84-year-old female with past medical history significant for hypertension, hyperlipidemia, pulmonary hypertension, HFpEF, hypothyroidism and IDDM who presented to [facility] ED for evaluation of generalized weakness. Patient reports that yesterday she
felt that she was unable to stand or ambulate without assistance from her spouse and did up sustaining two falls.
Renal consultation for hyponatremia of 115 overcorrected to 126
Impression.
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
Severe pulmonary hypertension
Chronic home oxygen 4 L. Stable
CHF
Hypertension
Plan
Sodium 115 on admission overcorrected to 126= urine sodium 44 in the setting of Lasix and hydrochlorothiazide/SIADH physiology
Discontinued hydrochlorothiazide indefinitely
Fluid restrict
Heart failure with volume correction D5W 1 L over 2 hours ordered
Stat labs
Serial labs reordered
Potassium repletion
Lasix on hold currently
Avoid overcorrection with max goal of 6 to 8 mmol over 24 hours= max at 123 by 1800 hrs. today
Patient critically low hyponatremia on admission
Total Time Spent with Patient (in minutes): 33
[2025-02-27 11:47] LABS: Blood Urea Nitrogen 32 mg/dl (7-17); Calcium 8.8 mg/dl (8.4-10.2); Carbon Dioxide 33 mmol/L (22-30); Chloride 85 mmol/L (98-107); Estimated Creatinine Clearance 39 ml/min; Glucose 272 mg/dl (70-99); Potassium 4.0 mmol/L (3.5-5.1); Sodium 119 mmol/L (135-145); eGFR 55.55
[2025-02-27 11:57] LABS: Glucose - Point of Care 338 mg/dl (70-99)
[2025-02-27] MEDS: NOVOLOG FLEXPEN-LOW RESISTANCE 4 UNITS SC ×2 (12:27→17:15)
[2025-02-27] MEDS: KCL 20 MEQ PO (12:27)
[2025-02-27] MEDS: PLAQUENIL 400 MG PO (12:28)
[2025-02-27 14:09] LABS: Blood Urea Nitrogen 29 mg/dl (7-17); Calcium 9.2 mg/dl (8.4-10.2); Carbon Dioxide 34 mmol/L (22-30); Chloride 82 mmol/L (98-107); Estimated Creatinine Clearance 39 ml/min; Glucose 344 mg/dl (70-99); Potassium 4.5 mmol/L (3.5-5.1); Sodium 118 mmol/L (135-145); eGFR 55.55
--- NOTE | 2025-02-27 14:20 | PN.DE.MGMTRT ---
Insulin Management
- -
02/27/2025: Diabetes Management Consult
84 year old female with PMH: HTN, Pulm HTN, HFpEF, HLD, Hypothyroidism, Interstitial lung disease, Rheumatoid arthritis and T2DM.
Presented to ED for evaluation of weakness with fall x 2, She did not lose consciousness. Patient reports episode of N/V/D on Tuesday lasting about 24 hours. No recurrent GI symptoms since that time. Patient fell leaving her home and struck the
back of her head. She continued on to her physician appointment. Upon return home, she continued to feel weak and had another fall without significant injury. She then presented to the ED for further evaluation. Patient has had issues recently with
poorly controlled hypertension, she sees Nephrology for HTN mgt and has had several med changes of late including increases in clonidine, HCTZ and carvedilol. She was noted for Hyponatremia on arrival to ED and admitted for management
Patient awake, alert, oriented, sitting up in chair, offers no complaints, able to discuss diabetes hx and care plan. Dtr at bedside, very supportive.
States she was taking Tresiba 10 units in AM, NovoLog 10 units @breakfast, 6-8 units @lunch and 8-10 units @dinner. She does not adhere to a diabetic diet.
She sees Agus Briceno at [place] for diabetes care. Uses CGM- Carissa 3 for glucose monitoring. A1C 6.7%, Cr 1.0, eGFR 55.55, Na+118 per BMP this afternoon.
Pt reports that she has not been getting any of home short acting insulin since admission.
Current diabetes regimen includes Lantus 10 units in AM and Low corrective insulin only.
Glucose has trended up to 338 POC, 334 V pre-lunch today. pt received 4 units of corrective insulin.
Will start her home regimen at a reduced dose, NovoLog 6 units AC. Will closely monitor glucose trend and adjust insulin dose if Necessary
Cont Lantus 10 units daily in AM and low corrective insulin with meals.
Change diet from 2000 amber to 1600 amber, pt is only 5'1'.
Discussed with Nurse. Will cont to follow.
Diabetes History
- -
Type of Diabetes: 2 requiring insulin
Pre-Admission Diabetes Regimen
02/26/25 02/27/25 02/27/25
17:46 05:13 09:28
Creatinine 1.0 1.2 H 1.1 H
02/27/25 02/27/25 02/27/25
09:42 10:52 13:37
Creatinine Cancelled 1.0 1.0
Lab Results
Hemoglobin A1c 6.7 % (4.0-5.6) H 02/27/25 05:14
Insulin Pump Settings
IP Diabetes Regimen
02/26/25 02/26/25 02/26/25
17:27 17:46 22:12
Glucose 198 H
POC Glucose 230 H 185 H
02/27/25 02/27/25 02/27/25
05:13 07:38 09:28
Glucose 140 H 160 H
POC Glucose 160 H
02/27/25 02/27/25 02/27/25
09:42 10:52 11:46
Glucose Cancelled 272 H
POC Glucose 338 H
02/27/25
13:37
Glucose 344 H
POC Glucose
Meal type: Breakfast
Meal type: Dinner
Amount consumed: 90%
Patient Education
--- NOTE | 2025-02-27 14:30 | W.PN.HOSP.TC ---
Addendum entered and electronically signed by Nilda John MD 02/27/25 19:17:
I saw and evaluated the patient independently. I reviewed and discussed the resident�s note and agree with findings and plan as documented by Dr. Barajas.
GENERAL: well developed, well nourished, obese female in no apparent distress
HEENT: NC/AT, O2 NC 4L
HEART: regular rate and rhythm, +S1, +S2
LUNGS : clear to auscultation bilaterally
ABDOM: soft, nontender, nondistended, + bowel sounds
EXT: no cyanosis, clubbing, or edema
NEUROLOGIC: grossly intact
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
permanently
hypokalemia/hypomagnesemia--replete and follow labs
Fall--could be from symptomatic hyponatremia--PT/OT--head CT neg--Fall precautions, neurochecks q4h
Hematoma of occipital region due to fall
Essential hypertension-- Continue on carvedilol, clonidine, lisinopril
Hypothyroidism-- Continue levothyroxine 125 mcg
Pulmonary hypertension-- Continue sildenafil, patient is on 4 L oxygen
rheumatoid arthritis--cont prednisone--watch for stress dose steroid needs
Insulin-dependent diabetes mellitus-- Glucose elevated--Currently on D5 fluids--She usually takes home dose of Tresiba 10 units daily but we did not have it in stock so Lantus 10 units substituted--novolog was not on her home med list at the time of
my evaluation of her--apprec DM FANCY SEWER assistance--cont insulin, SSI, short acting novolog as well
DVT proph--SC heparin
code status-- FULL CODE
Original Note:
Today's Communication/Plan
-
Trend CMP for electrolytes, follow-up with nephrology, follow-up with diabetes nurse practitioner
Assessment / Plan
Assessment / Plan
Acute hyper tonic hypovolemic with severe hyponatremia:
- Serum osmolality is 261, urine osmolality is above 200, urine sodium is 44 in the setting of nausea/vomiting/diarrhea and recent med changes involving increasing dose of hydrochlorothiazide. Labs plus clinical picture points towards this
diagnosis.
-Review of systems negative for fever chills nausea vomiting headache abdominal pain lethargy lightheadedness dizziness syncope.
- Physical examination is benign for any positive pertinent findings.
-Initial sodium 115 on admission, patient was then started on 3% hypertonic saline and today in morning sodium was 126. This was overcorrected. Sodium increase is supposed to be 8 or less in a period of 24 hours. Patient then placed on D5 IV
fluids by nephrology.
- Repleted potassium, repleted magnesium
-Trend CMP for electrolyte levels
- Fall precautions, neurochecks q4h
- Discontinue hydrochlorothiazide
- Nephrology is following
Hematoma of occipital region due to fall:
- Patient's blood thinner is being held, currently on heparin drip
- Neurochecks every 4 hourly
- Acetaminophen 650 as needed
- Fall precautions
Essential hypertension:
- Continue on carvedilol, clonidine, lisinopril
Hypothyroidism:
- Continue levothyroxine 125 mcg
Pulmonary hypertension:
- Continue sildenafil, patient is on 4 L oxygen
Insulin-dependent diabetes mellitus:
- Glucose is 344. Currently on D5 fluids. She usually takes home dose of Tresiba 10 units daily but we did not have it in stock in the hospital so the team placed her on Levemir however she said she does not tolerate Levemir or that it does not
work, so that insulin was stopped and patient is now on Lantus 10 units. On review of her previous medication log from previous hospital visits, there are diabetes medications mentioned in there that are not mentioned on our list. Consulted
diabetes nurse practitioner.
Anticipated Discharge: 24 - 48 hours
Subjective/Interval History
-
Date of Service: February 27, 2025
Patient is an 84y F with PMH significant for hypertension, pulmonary hypertension, HFpEF and DM-II who presents to ED for evaluation of weakness with fall x 2 today. Patient reports episode of N/v/D on Tuesday lasting about 24 hours. No
recurrent GI symptoms since that time. Today she felt generally weak / fatigued. She fell leaving her home and struck the back of her head. She did not lose consciousness. She continued on to her physician appointment. Upon return home, she
continued to feel weak and had another fall without significant injury. She then presented to the ED for further evaluation.
Patient has had issues recently with poorly controlled hypertension and sees a classer. Cap Machine Operator recommended that she be started on 12.5 hydrochlorothiazide ( one of her recent medication changes according to her) and then her fitter placer
recommended to bump that same amount up to 50 mg. In the ED she had cervical spine CT, head CT, chest x-ray performed. Her blood pressure in the ED went as high as 213/83. On admission elevated WBC of 8.3, hemoglobin of 12.3, sodium of 115,
creatinine of 1.0, potassium 3.6, magnesium. Nephrology was consulted by the ISMAEL. Overnight provider then started patient on 3% hypertonic saline.
Today patient is complaining of nonbloody loose stools.
Objective Data
-
Labs:
Laboratory Results
02/27/25 02/27/25 02/27/25
05:13 05:14 09:28
WBC 8.3
Hgb 10.6 L
Hct 29.0 L
Plt Count 159 D
Sodium 125 L 126 L
Potassium 3.2 L
Chloride 85 L
Carbon Dioxide 35 H
BUN 34 H
Creatinine 1.2 H
Glucose 140 H
Calcium 9.2
02/27/25 02/27/25 02/27/25
09:28 09:42 10:52
WBC
Hgb
Hct
Plt Count
Sodium 123 L Cancelled 119 L*
Potassium 3.6 Cancelled 4.0
Chloride 85 L Cancelled 85 L
Carbon Dioxide 35 H Cancelled 33 H
BUN 30 H Cancelled 32 H
Creatinine 1.1 H Cancelled 1.0
Glucose 160 H Cancelled 272 H
Calcium 9.3 Cancelled 8.8
02/27/25 02/27/25 02/27/25
13:37 13:51 17:51
WBC
Hgb
Hct
Plt Count
Sodium 118 L* Cancelled Cancelled
Potassium 4.5
Chloride 82 L
Carbon Dioxide 34 H
BUN 29 H
Creatinine 1.0
Glucose 344 H
Calcium 9.2
Vital Signs:
Vital Signs
Temp Pulse Resp BP Pulse Ox
97.7 F 63 18 117/50 97
02/27/25 11:13 02/27/25 11:13 02/27/25 11:13 02/27/25 11:13 02/27/25 11:13
I&O
02/26/25 02/27/25 02/28/25
06:59 06:59 06:59
Intake Total 360 / 360
Output Total 1050 / 1050
Balance -690 / -690
Review of Systems
-
History Source: Patient
All other systems: Reviewed and negative
Constitutional: Denies Fever, Weight Loss, No Appetite, Fatigue or Night Sweats
Respiratory: Denies Cough, Hemoptysis, Trouble Breathing or Wheezing
Cardiac: Denies Chest Pain, Diaphoresis, Palpitations or Syncope
Abdomen/GI: Reports Abdominal Pain and Diarrhea; Denies Nausea, Vomiting, Constipated or Bloody Stools
Genitourinary: Denies Dysuria, Frequency, Flank Pain or Incontinence
Musculoskeletal: Denies Joint Pain, Joint Swelling or Muscle Pain
Neuro: Denies Dizzy, Headache, Weakness, Numbness, Tremors or Lightheadedness
Hematologic / Lymphatic: Denies Bleeding
Physical Exam
-
General: Well Developed
Respiratory: Clear to Auscultation and Other (On home oxygen 4 L baseline)
Cardiac: Regular Rhythm and S1/S2
GI: Soft, Nontender, Nondistended and Normal Bowel Sounds
Musculoskeletal: No Clubbing, No Cyanosis and No Edema
Skin: Warm
Neuro: AO x 3
[2025-02-27] MEDS: SODIUM CHLORIDE 3% 250 IV (16:31)
[2025-02-27 16:41] LABS: Blood Urea Nitrogen 31 mg/dl (7-17); Calcium 9.2 mg/dl (8.4-10.2); Carbon Dioxide 34 mmol/L (22-30); Chloride 86 mmol/L (98-107); Estimated Creatinine Clearance 39 ml/min; Glucose 249 mg/dl (70-99); Potassium 4.9 mmol/L (3.5-5.1); Sodium 123 mmol/L (135-145); eGFR 55.55
[2025-02-27 17:04] LABS: Glucose - Point of Care 317 mg/dl (70-99)
--- NOTE | 2025-02-27 17:11 | CM ---
Patient seen at bedside with physicians in 1 acute. Patient lives with her in a 2 story home. Patient has home O2 with her CPAP at [facility]. Patient stated that her PCP is Dr. Dewayne juarez she uses the [facility] in [place]. Patient has had
sushila phipps and a client resource specialist in the past. Family was interested in patient getting [facility] to follow her. Patient baseline on 4 liters. Patient has several steps to enter home and uses a walker and a wheelchair/transport chair. CM will continue
to follow for discharge planning needs.
Plan;SNF vs home with VN
[2025-02-27] MEDS: NOVOLOG FLEXPEN 6 UNITS SC (17:15)
[2025-02-27] MEDS: CRESTOR 20 MG PO (17:16)
[2025-02-27 18:48] LABS: Blood Urea Nitrogen 33 mg/dl (7-17); Calcium 9.5 mg/dl (8.4-10.2); Carbon Dioxide 35 mmol/L (22-30); Chloride 86 mmol/L (98-107); Estimated Creatinine Clearance 35 ml/min; Glucose 187 mg/dl (70-99); Potassium 4.5 mmol/L (3.5-5.1); Sodium 121 mmol/L (135-145); eGFR 49.55
--- NOTE | 2025-02-27 19:07 | PTCARENOTE ---
TT from Nephrology (Haja Glover) to dashawn RN
'I realized why her sodium is so up and down. It's because her blood sugars were high making the sodium look like it was lower than it really was so I just continue off of fluids.'
[2025-02-27] MEDS: MAGNESIUM SULFATE 50 IV (19:53)
[2025-02-27 21:47] LABS: Glucose - Point of Care 173 mg/dl (70-99)
[2025-02-27 23:11] LABS: Blood Urea Nitrogen 34 mg/dl (7-17); Calcium 9.0 mg/dl (8.4-10.2); Carbon Dioxide 34 mmol/L (22-30); Chloride 87 mmol/L (98-107); Estimated Creatinine Clearance 35 ml/min; Glucose 124 mg/dl (70-99); Potassium 4.4 mmol/L (3.5-5.1); Sodium 120 mmol/L (135-145); eGFR 49.55
[2025-02-28] VITALS (11 sets, daily range): BP systolic 83–189; BP diastolic 35–86
[2025-02-28] MEDS: TYLENOL 1000 MG PO (02:55)
[2025-02-28 03:34] LABS: Hematocrit 31.3 % (37.0-47.0); Hemoglobin 11.2 g/dL (12.0-16.0); Mean Corp Hgb Conc. 35.8 g/dL (33.0-37.0); Mean Corpuscular Volume 85.3 fL (81.0-99.0); Platelet Count 173 10^3/uL (130-400); Red Cell Dist. Width 13.0 % (11.5-14.5)
[2025-02-28 04:06] LABS: Blood Urea Nitrogen 32 mg/dl (7-17); Calcium 9.1 mg/dl (8.4-10.2); Carbon Dioxide 32 mmol/L (22-30); Chloride 89 mmol/L (98-107); Estimated Creatinine Clearance 39 ml/min; Glucose 146 mg/dl (70-99); Magnesium 2.2 mg/dl (1.6-2.3); Potassium 4.2 mmol/L (3.5-5.1); Sodium 122 mmol/L (135-145); eGFR 55.55
[2025-02-28] MEDS: SYNTHROID 200 MCG PO (05:55)
[2025-02-28 07:17] LABS: Glucose - Point of Care 187 mg/dl (70-99)
--- NOTE | 2025-02-28 07:26 | PN.DE.MGMTRT ---
Insulin Management
- -
02/28/2025: Diabetes Management Consult Follow up
84 year old female admitted with c/o weakness with fall x 2, found to be Hyponatremic, sodium 115. PMH: HTN, Pulm HTN, HFpEF, HLD, Hypothyroidism, Interstitial lung disease, Rheumatoid arthritis and T2DM. Patient reports she had no LOC with
falls, had episode of N/V/D on Tuesday lasting about 24 hours. No recurrent GI symptoms since that time. Patient has had issues recently with poorly controlled hypertension, she sees Nephrology for HTN mgt and has had several med changes of late
including increases in clonidine, HCTZ and carvedilol. Prior to admission was taking Tresiba 10 units in AM, NovoLog 10 units @breakfast, 6-8 units @lunch and 8-10 units @dinner. A1C 6.7%, Cr 1.0, eGFR 55.55
Patient sleeping awakened easily, oriented, offers no complaints, able to discuss diabetes hx and care plan. at bedside, very supportive. Patient states she sees Agus Briceno at [place] for ongoing diabetes care. Uses CGM- Carissa 3 for
glucose monitoring. She does not adhere to a diabetic diet.
02/27 Patient received Lantus 10 units in AM and Low corrective insulin only until dinner - 6 units standing novolog plus 4 units corrective provided. Glucose pre breakfast and lunch 160 and 338, pre dinner 317. HS glucose 173
02/28 Fasting glucose 146. Will continue NovoLog 6 units AC with low corrective insulin and lantus 10 units in AM. Sodium improved 122.
Discussed with Nurse. Will cont to follow.
Diabetes History
- -
Type of Diabetes: 2 requiring insulin
Pre-Admission Diabetes Regimen
02/27/25 02/27/25 02/27/25
09:28 09:42 10:52
Creatinine 1.1 H Cancelled 1.0
02/27/25 02/27/25 02/27/25
13:37 16:09 18:23
Creatinine 1.0 1.0 1.1 H
02/27/25 02/28/25 02/28/25
22:41 00:01 03:14
Creatinine 1.1 H Cancelled 1.0
Lab Results
Hemoglobin A1c 6.7 % (4.0-5.6) H 02/27/25 05:14
Insulin Pump Settings
IP Diabetes Regimen
02/27/25 02/27/25 02/27/25
07:38 09:28 09:42
Glucose 160 H Cancelled
POC Glucose 160 H
02/27/25 02/27/25 02/27/25
10:52 11:46 13:37
Glucose 272 H 344 H
POC Glucose 338 H
02/27/25 02/27/25 02/27/25
16:09 16:53 18:23
Glucose 249 H 187 H
POC Glucose 317 H
02/27/25 02/27/25 02/28/25
21:36 22:41 00:01
Glucose 124 H Cancelled
POC Glucose 173 H
02/28/25 02/28/25
03:14 07:06
Glucose 146 H
POC Glucose 187 H
Meal type: Breakfast
Amount consumed: 90%
Patient Education
[2025-02-28] MEDS: NOVOLOG FLEXPEN 6 UNITS SC ×3 (08:56→17:37)
[2025-02-28] MEDS: NOVOLOG FLEXPEN-LOW RESISTANCE 1 UNITS SC (08:57)
[2025-02-28] MEDS: VITAMIN D3 (cholecalciferol) 50 MCG PO (08:58)
[2025-02-28] MEDS: ZESTRIL 40 MG PO (08:58)
[2025-02-28] MEDS: LANTUS 0.1 UNITS SC (08:58)
[2025-02-28] MEDS: CATAPRES 0.2 MG PO ×3 (08:59→20:12)
[2025-02-28] MEDS: COREG 25 MG PO ×2 (08:59→20:12)
[2025-02-28] MEDS: DELTASONE 7.5 MG PO (08:59)
[2025-02-28] MEDS: THERAGRAN 1 TABLET PO (08:59)
[2025-02-28] MEDS: NON-FORMULARY ITEM 1000 MCG PO ×2 (09:04→20:12)
[2025-02-28] MEDS: METAMUCIL, KONSYL 1 PACKET PO (09:04)
[2025-02-28] MEDS: REVATIO 20 MG PO ×3 (09:06→22:02)
[2025-02-28] MEDS: HEPARIN 5000 UNITS SC ×3 (09:07→23:22)
[2025-02-28] MEDS: TYLENOL 650 MG PO ×2 (09:15→22:03)
[2025-02-28] MEDS: SAMSCA 7.5 MG PO (10:28)
--- NOTE | 2025-02-28 11:12 | W.PN.NEPH.PH ---
Today's Communication / Plan
-
samsca x 1> nss iv bolus for acute hypotension
Assessment/Plan
-
84-year-old female with past medical history significant for hypertension, hyperlipidemia, pulmonary hypertension, HFpEF, hypothyroidism and IDDM who presented to [facility] ED for evaluation of generalized weakness. Patient reports that yesterday she
felt that she was unable to stand or ambulate without assistance from her spouse and did up sustaining two falls.
Renal consultation for hyponatremia of 115 overcorrected to 126
Impression.
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
Severe pulmonary hypertension
Chronic home oxygen 4 L. Stable
CHF
Hypertension
Plan
Sodium 115 on admission overcorrected to 126= urine sodium 44 in the setting of Lasix and hydrochlorothiazide/SIADH physiology
Discontinued hydrochlorothiazide indefinitely
Fluid restrict
Serial labs reordered
Potassium repletion
Lasix on hold currently
current na 122> low dose samsca x 1
pt pt 80's sytolic from 189 systol s/p rx= will give 250 nss bolus
d/w nursing.
-
-
Date of Service: February 28, 2025
CC / HPI / ROS
-
Chief Complaint:
na 115
History of Present Illness:
hypona 115 on admit with new hctz rx otpt / diffucult to controll htn on going otpt on chronic o2
Review of Systems:
lethargic / acute hypotension
Labs
-
Labs:
WBC 8.9 10^3/uL (4.8-10.8) 02/28/25 03:14
RBC 3.67 10^6/uL (4.20-5.40) L 02/28/25 03:14
Hgb 11.2 g/dL (12.0-16.0) L 10/23/25 03:14
Hct 31.3 % (37.0-47.0) L 02/28/25 03:14
Plt Count 173 10^3/uL (130-400) 02/28/25 03:14
Sodium 122 mmol/L (135-145) L 02/28/25 03:14
Potassium 4.2 mmol/L (3.5-5.1) 02/28/25 03:14
Chloride 89 mmol/L (98-107) L 02/28/25 03:14
Carbon Dioxide 32 mmol/L (22-30) H 02/28/25 03:14
BUN 32 mg/dl (7-17) H 02/28/25 03:14
Creatinine 1.0 mg/dL (0.6-1.0) 02/28/25 03:14
eGFR 55.55 02/28/25 03:14
Glucose 146 mg/dl (70-99) H 02/28/25 03:14
Calcium 9.1 mg/dl (8.4-10.2) 02/28/25 03:14
Gkx-E-Xclhgmricba Pept 854 pg/ml 02/26/25 19:31
Albumin 4.4 g/dl (3.5-5.0) 02/26/25 17:46
Physical Exam
-
Vital Signs:
Vital Signs
Temp Pulse Resp BP Pulse Ox
97.9 F 69 18 189/83 100
02/28/25 07:42 02/28/25 07:42 02/28/25 07:42 02/28/25 07:42 02/28/25 07:42
Respiratory:: Bilateral: Coarse
Lung Excursion:: Normal
Abdomen:: Soft
Bowel Sounds:: Normal
Extremity Edema:: None: Bilateral:
[2025-02-28 11:18] LABS: Glucose - Point of Care 259 mg/dl (70-99)
[2025-02-28] MEDS: NSS 250 IV (11:22)
[2025-02-28 12:35] LABS: B.E. 6.2 mmol/L; HCO3 32.5 mmol/L (21-28); O2 Saturation % 98.1 % (94-98); PCO2 55 mmHg (32-35); PO2 90 mmHg (83-108)
[2025-02-28] MEDS: NOVOLOG FLEXPEN-LOW RESISTANCE 3 UNITS SC (12:36)
[2025-02-28] MEDS: KCL 20 MEQ PO (12:37)
[2025-02-28] MEDS: PLAQUENIL 400 MG PO (12:37)
[2025-02-28] MEDS: ROCEPHIN 1000 MG IV (12:39)
[2025-02-28] MEDS: STERILE WATER FOR INJECTION 10 ML IV (12:50)
--- NOTE | 2025-02-28 13:32 | PTCARENOTE ---
Pt received in bed @ 0700. Drowsy and lethargic. Pt reporting 2/10 headache, PRN Tylenol administered. Pt with increasing drowsiness and lethargy as shift continued. Minimally responsive requiring sternal rub to wake. Occasional waking to voice. BP
in morning was 189/83, now reading 85/35 after scheduled antihypertensives administered. Dr. Glover present on floor and ordered NSS 250ml bolus. Pt more responsive after IV bolus. Able to follow commands and stay awake and alert. New order for
Rocephin, Head CT, and transfer to IMU. Report given and pt brought to IMU.
--- NOTE | 2025-02-28 16:31 | CM ---
Patient seen at bedside in i acute. Patient for transfer to IMU. CM will continue to follow for discharge planning needs.
Plan; SNF vs home with Vn
[2025-02-28 17:00] LABS: Blood Urea Nitrogen 29 mg/dl (7-17); Calcium 8.8 mg/dl (8.4-10.2); Carbon Dioxide 32 mmol/L (22-30); Chloride 89 mmol/L (98-107); Estimated Creatinine Clearance 39 ml/min; Glucose 212 mg/dl (70-99); Potassium 5.0 mmol/L (3.5-5.1); Sodium 124 mmol/L (135-145); eGFR 55.55
[2025-02-28 17:06] LABS: Glucose - Point of Care 228 mg/dl (70-99)
[2025-02-28] MEDS: NOVOLOG FLEXPEN-LOW RESISTANCE 2 UNITS SC (17:37)
[2025-02-28] MEDS: CRESTOR 20 MG PO (17:38)
--- NOTE | 2025-02-28 17:47 | PTCARENOTE ---
Stat BMP ordered and sent. Dr Glover notified results in computer: NA 124; BP 147/58, HR 60s. Patient awake and alert, forgetful at times.
--- NOTE | 2025-02-28 17:48 | PTCARENOTE ---
Received patient as transfer upgrade from [facility]. Patient awake, alert and Ox3 with forgetfulness. BP 150/57, HR 50s-60s, POx 98-99% on RA. Inc of urine; received with purewick in place which was changed. Patient requested meds whole in applesauce;
no difficulty taking medications and no difficulty with meals. remains at bedside.
--- NOTE | 2025-02-28 18:11 | W.PN.HOSP.TC ---
Addendum entered and electronically signed by Nilda John MD 02/28/25 19:21:
I saw and evaluated the patient independently. I reviewed and discussed the resident�s note and agree with findings and plan as documented by Dr. Barajas.
GENERAL: well developed, well nourished, obese female in no apparent distress
HEENT: NC/AT, O2 NC 4L
HEART: regular rate and rhythm, +S1, +S2
LUNGS : clear to auscultation bilaterally
ABDOM: soft, nontender, nondistended, + bowel sounds
EXT: no cyanosis, clubbing, or edema
NEUROLOGIC: grossly intact
lethargy--difficult to arouse with hypotension--new--STAT head CT neg for acute issues--BS 249--ABG does not show significant CO2 retention, received IVF bolus--moved pt to IMU--discussed with at bedside
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
permanently--sodium improved to 122 and Samsca being given
hypokalemia/hypomagnesemia--replete and follow labs
Fall--could be from symptomatic hyponatremia--PT/OT--head CT neg--Fall precautions, stop neurochecks
Hematoma of occipital region due to fall
Essential hypertension-- Continue on carvedilol, clonidine, lisinopril
Hypothyroidism-- Continue levothyroxine 125 mcg
Pulmonary hypertension-- Continue sildenafil, patient is on 4 L oxygen
rheumatoid arthritis--cont prednisone--watch for stress dose steroid needs
Insulin-dependent diabetes mellitus-- Glucose elevated--Currently on D5 fluids--She usually takes home dose of Tresiba 10 units daily but we did not have it in stock so Lantus 10 units substituted--novolog was not on her home med list at the time of
my evaluation of her--apprec DM STAFF RESEARCH ASSOCIATE assistance--cont insulin, SSI, short acting novolog as well
DVT proph--SC heparin
code status-- FULL CODE
Original Note:
Today's Communication/Plan
-
- trend labs, neurochecks,
Assessment / Plan
Assessment / Plan
Acute unresponsiveness due to unknown etiology:
- Today morning patient was non responsive, non verbal, and not following commands.
- Physical examination shows patient is alert but not oriented to place or time
- Ct brain shows no intracranial abnormalities
- VBG normal so no acid base disorder.
- Glucose 146
- Nephrology gave patient small fluid bolus
- Transfer to IMU, continue to observe, continuous neuro checks q4, check labs in AM
Acute hyper tonic hypovolemic with severe hyponatremia:
- Serum osmolality is 261, urine osmolality is above 200, urine sodium is 44 in the setting of nausea/vomiting/diarrhea and recent med changes involving increasing dose of hydrochlorothiazide. Labs plus clinical picture points towards this
diagnosis.
-Review of systems negative for fever chills nausea vomiting headache abdominal pain lethargy lightheadedness dizziness syncope.
- Physical examination is benign for any positive pertinent findings.
-Initial sodium 115 on admission, patient was then started on 3% hypertonic saline and today in morning sodium was 126. This was overcorrected. Sodium increase is supposed to be 8 or less in a period of 24 hours. Patient then placed on D5 IV
fluids by nephrology. today morning the fluids dc'd and sodium is 122 in AM. Nephrology gave samsca.
- Repleted potassium, repleted magnesium
-Trend CMP for electrolyte levels
- Discontinue hydrochlorothiazide
- Nephrology is following
Hematoma of occipital region due to fall:
- Patient's blood thinner is being held, currently on heparin drip
- Neurochecks every 4 hourly
- Acetaminophen 650 as needed
- Fall precautions
Essential hypertension:
- Continue on carvedilol, clonidine, lisinopril
Hypothyroidism:
- Continue levothyroxine 125 mcg
Pulmonary hypertension:
- Continue sildenafil, patient is on 4 L oxygen
Insulin-dependent diabetes mellitus:
- Glucose is 146. Consulted diabetes nurse practitioner. Will continue NovoLog 6 units AC with low corrective insulin and lantus 10 units in AM.
Anticipated Discharge: 24 - 48 hours
Subjective/Interval History
-
Date of Service: February 28, 2025
Today morning patient was non responsive, non verbal, and not following commands.
Objective Data
-
Labs:
Laboratory Results
02/28/25 02/28/25
12:19 16:29
HCO3 32.5 H
Sodium 124 L
Potassium 5.0
Chloride 89 L
Carbon Dioxide 32 H
BUN 29 H
Creatinine 1.0
Glucose 212 H
Calcium 8.8
Vital Signs:
Vital Signs
Temp Pulse Resp BP Pulse Ox
97.5 F 58 18 165/62 98
02/28/25 15:21 02/28/25 18:00 02/28/25 18:00 02/28/25 18:00 02/28/25 18:00
I&O
02/27/25 02/28/25 03/01/25
06:59 06:59 06:59
Intake Total 360 / 360 600 / 600 730 / 730
Output Total 1050 / 1050 2350 / 2350 600 / 600
Balance -690 / -690 -1750 / -1750 130 / 130
Review of Systems
-
Unable to obtain full review of systems at this time due to: Other (patient unresponsive to sternal rub and unarousable.)
Physical Exam
-
General: Well Developed
Respiratory: Clear to Auscultation and Other (On home oxygen 4 L baseline)
Cardiac: Regular Rhythm and S1/S2
GI: Soft, Nontender, Nondistended and Normal Bowel Sounds
Musculoskeletal: No Clubbing, No Cyanosis and No Edema
Skin: Warm
Neuro: Awake and Other (Patient non responsive, and not following commands ); Negative Alert, Oriented, AO x 3 or Tremors
[2025-02-28 21:07] LABS: Glucose - Point of Care 202 mg/dl (70-99)
--- NOTE | 2025-02-28 22:28 | PTCARENOTE ---
assumed care of patient. pt is AAOx3 but forgetful at times. VSS. 98% 4L. x2 assist in the bed, PW intact. bed alarm on, pt did try getting OOB, looking for , pt reoriented easily. hematoma/abrasion noted to back of head, intact and not
draining at this time. able to take pills whole with applesauce without issues. care ongoing.
[2025-03-01] VITALS (21 sets, daily range): BP systolic 128–193; BP diastolic 40–116; PULSE 55–66; O2SAT 95–96; BMI 31.4
[2025-03-01] MEDS: SYNTHROID 200 MCG PO (04:11)
[2025-03-01] MEDS: TYLENOL 650 MG PO ×3 (04:11→19:59)
[2025-03-01 04:42] LABS: Blood Urea Nitrogen 34 mg/dl (7-17); Calcium 8.9 mg/dl (8.4-10.2); Carbon Dioxide 32 mmol/L (22-30); Chloride 91 mmol/L (98-107); Estimated Creatinine Clearance 35 ml/min; Glucose 138 mg/dl (70-99); Potassium 4.6 mmol/L (3.5-5.1); Sodium 127 mmol/L (135-145); eGFR 49.55
--- NOTE | 2025-03-01 05:14 | PTCARENOTE ---
BP has been running on the higher side- SBP 160s-170s. notified covering ELECTRONIC SYSTEMS TECHNICIAN- no new orders at this time.
[2025-03-01] MEDS: CATAPRES 0.2 MG PO ×3 (06:12→21:33)
[2025-03-01] MEDS: ZESTRIL 40 MG PO (06:12)
--- NOTE | 2025-03-01 06:17 | PTCARENOTE ---
BP still high- now SBP in 190s. notified covering ISMAEL- told to give PO BP meds early, refer to MAR.
--- NOTE | 2025-03-01 07:22 | PN.DE.MGMTRT ---
Insulin Management
- -
03/01/2025: Diabetes Management Follow up
84 year old female admitted with c/o weakness after fall x 2, found to be Hyponatremic, sodium 115.
PMH: HTN, Pulm HTN, HFpEF, HLD, Hypothyroidism, Interstitial lung disease, Rheumatoid arthritis and T2DM. Patient reports she had no LOC with falls, had episode of N/V/D on Tuesday lasting about 24 hours. No recurrent GI symptoms since that time.
Patient has had issues recently with poorly controlled hypertension, she sees Nephrology for HTN mgt and has had several med changes of late including increases in clonidine, HCTZ and carvedilol. Prior to admission was taking Tresiba 10 units in AM,
NovoLog 10 units @breakfast, 6-8 units @lunch and 8-10 units @dinner. A1C 6.7%, Cr 1.0, eGFR 55.55
Patient sleeping awakened easily, oriented, offers no complaints, able to discuss diabetes hx and care plan. at bedside, very supportive.
Patient states she sees Agus Briceno at [place] for ongoing diabetes care. Uses CGM- Carissa 3 for glucose monitoring. She does not adhere to a diabetic diet.
Pt was moved up to IMU due to confusion with hypotension. Mental status at baseline now. Sodium improved 127 today.
02/28 premeal glucose range 228 to 259, received 1-3 units of corrective insulin with meals. Fasting glucose 138 V, 157 POC.
Will increase AC NovoLog to 8 units. Cont Lantus 10 units in AM and Low corrective insulin
Discussed with Nurse. Will cont to follow.
Diabetes History
- -
Type of Diabetes: 2 requiring insulin
Pre-Admission Diabetes Regimen
02/28/25 03/01/25
16:29 04:08
Creatinine 1.0 1.1 H
Lab Results
Hemoglobin A1c 6.7 % (4.0-5.6) H 02/27/25 05:14
Insulin Pump Settings
IP Diabetes Regimen
02/28/25 02/28/25 02/28/25
11:07 16:29 16:55
Glucose 212 H
POC Glucose 259 H 228 H
02/28/25 03/01/25
20:55 04:08
Glucose 138 H
POC Glucose 202 H
Meal type: Breakfast
Amount consumed: 90%
Patient Education
[2025-03-01] MEDS: LANTUS 0.1 UNITS SC (08:33)
[2025-03-01] MEDS: DELTASONE 7.5 MG PO (08:34)
[2025-03-01] MEDS: REVATIO 20 MG PO ×3 (08:34→21:33)
[2025-03-01] MEDS: NON-FORMULARY ITEM 1000 MCG PO ×2 (08:35→19:59)
[2025-03-01] MEDS: THERAGRAN 1 TABLET PO (08:35)
[2025-03-01] MEDS: METAMUCIL, KONSYL 1 PACKET PO (08:36)
[2025-03-01] MEDS: HEPARIN 5000 UNITS SC ×3 (08:36→23:16)
[2025-03-01] MEDS: NOVOLOG FLEXPEN-LOW RESISTANCE 1 UNITS SC ×2 (08:37→16:57)
[2025-03-01] MEDS: NOVOLOG FLEXPEN 6 UNITS SC (08:37)
[2025-03-01] MEDS: COREG PO (08:37)
[2025-03-01] MEDS: VITAMIN D3 (cholecalciferol) 50 MCG PO (08:38)
[2025-03-01 08:43] LABS: Glucose - Point of Care 157 mg/dl (70-99)
--- NOTE | 2025-03-01 09:33 | W.PN.NEPH.PH ---
Today's Communication / Plan
-
Add back fluid restriction
Antihypertensives now added back but Lasix remains on hold
Assessment/Plan
-
84-year-old female with past medical history significant for hypertension, hyperlipidemia, pulmonary hypertension, HFpEF, hypothyroidism and IDDM who presented to [facility] ED for evaluation of generalized weakness. Patient reports that yesterday she
felt that she was unable to stand or ambulate without assistance from her spouse and did up sustaining two falls.
Renal consultation for hyponatremia of 115 overcorrected to 126
Impression.
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
Severe pulmonary hypertension
Chronic home oxygen 4 L. Stable
CHF
Hypertension
Plan
Sodium 115 on admission overcorrected to 126= urine sodium 44 in the setting of Lasix and hydrochlorothiazide/SIADH physiology
Discontinued hydrochlorothiazide indefinitely
Fluid restrict and sodium now at 127
Creatinine at 1.1
Lasix on hold currently
Patient now more hypertensive with systolic blood pressure 1 70-190
d/w nursing.
-
-
Date of Service: March 01, 2025
CC / HPI / ROS
-
Chief Complaint:
na 115
History of Present Illness:
hypona 115 on admit with new hctz rx otpt / diffucult to controll htn on going otpt on chronic o2 sodium now 120
Hypertensive
Creatinine stable at 1 point
Review of Systems:
Nonoliguric
Now back to mental status
]
Labs
-
Labs:
Sodium 127 mmol/L (135-145) L 03/01/25 04:08
Potassium 4.6 mmol/L (3.5-5.1) 03/01/25 04:08
Chloride 91 mmol/L (98-107) L 03/01/25 04:08
Carbon Dioxide 32 mmol/L (22-30) H 03/01/25 04:08
BUN 34 mg/dl (7-17) H 03/01/25 04:08
Creatinine 1.1 mg/dL (0.6-1.0) H 03/01/25 04:08
eGFR 49.55 03/01/25 04:08
Glucose 138 mg/dl (70-99) H 03/01/25 04:08
Calcium 8.9 mg/dl (8.4-10.2) 03/01/25 04:08
Ruh-G-Idgpyzxgkgy Pept 854 pg/ml 02/26/25 19:31
Albumin 4.4 g/dl (3.5-5.0) 02/26/25 17:46
Physical Exam
-
Vital Signs:
Vital Signs
Temp Pulse Resp BP Pulse Ox
97.6 F 55 17 170/69 98
03/01/25 08:00 03/01/25 08:37 03/01/25 06:07 03/01/25 08:37 03/01/25 06:07
Respiratory:: Bilateral: Coarse
Lung Excursion:: Normal
Abdomen:: Soft
Bowel Sounds:: Normal
Extremity Edema:: None: Bilateral:
[2025-03-01 10:03] LABS: Hematocrit 31.8 % (37.0-47.0); Hemoglobin 11.4 g/dL (12.0-16.0); Mean Corp Hgb Conc. 35.8 g/dL (33.0-37.0); Mean Corpuscular Volume 87.4 fL (81.0-99.0); Nucleated Red Blood Cells % 0 %; Platelet Count 154 10^3/uL (130-400); Red Cell Dist. Width 12.9 % (11.5-14.5)
[2025-03-01 12:16] LABS: Glucose - Point of Care 248 mg/dl (70-99)
[2025-03-01] MEDS: NOVOLOG FLEXPEN-LOW RESISTANCE 2 UNITS SC (12:21)
[2025-03-01] MEDS: NOVOLOG FLEXPEN 8 UNITS SC ×2 (12:22→16:58)
[2025-03-01] MEDS: ROCEPHIN 1000 MG IV (12:22)
[2025-03-01] MEDS: PLAQUENIL 400 MG PO (12:22)
[2025-03-01] MEDS: STERILE WATER FOR INJECTION 10 ML IV (12:23)
[2025-03-01] MEDS: KCL ELIXIR 20 MEQ PO (12:49)
[2025-03-01] MEDS: KCL PO (14:20)
--- NOTE | 2025-03-01 14:28 | W.PN.HOSP.TC ---
Addendum entered and electronically signed by Nilda John MD 03/01/25 15:39:
I saw and evaluated the patient independently. I reviewed and discussed the resident�s note and agree with findings and plan as documented by Dr. Barajas.
GENERAL: well developed, well nourished, obese female in no apparent distress
HEENT: NC/AT, O2 NC 4L
HEART: regular rate and rhythm, +S1, +S2
LUNGS : clear to auscultation bilaterally
ABDOM: soft, nontender, nondistended, + bowel sounds
EXT: no cyanosis, clubbing, or edema
NEUROLOGIC: grossly intact
lethargy -resolved---STAT head CT neg for acute issues--BS 249--ABG does not show significant CO2 retention, s/p IVF bolus--can downgrade to tele
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
permanently--sodium improved to 127 and s/p Samsca
hypokalemia/hypomagnesemia--replete and follow labs
Fall--could be from symptomatic hyponatremia--PT/OT--head CT neg--Fall precautions, stop neurochecks
Hematoma of occipital region due to fall
Essential hypertension-- Continue on carvedilol, clonidine, lisinopril
Hypothyroidism-- Continue levothyroxine 125 mcg
Pulmonary hypertension-- Continue sildenafil, patient is on 4 L oxygen
rheumatoid arthritis--cont prednisone--watch for stress dose steroid needs
Insulin-dependent diabetes mellitus-- Glucose elevated--Currently on D5 fluids--She usually takes home dose of Tresiba 10 units daily but we did not have it in stock so Lantus substituted--novolog was not on her home med list at the time of my
evaluation of her--apprec DM [employer] assistance--cont insulin, SSI, short acting novolog as well
DVT proph--SC heparin
code status-- FULL CODE
Original Note:
Today's Communication/Plan
-
Continue to follow-up with nephrology, trend CMP
Assessment / Plan
Assessment / Plan
Acute unresponsiveness due to unknown etiology ( resolved on 03/01/2025):
- Today morning patient was non responsive, non verbal, and not following commands.
- Physical examination shows patient is alert but not oriented to place or time
- Ct brain shows no intracranial abnormalities
- VBG normal so no acid base disorder.
- Glucose 146
- Nephrology gave patient small fluid bolus
- Transfer to IMU, continue to observe, continuous neuro checks q4, check labs in AM
Acute hyper tonic hypovolemic with severe hyponatremia:
- on intial presentation, Serum osmolality is 261, urine osmolality is above 200, urine sodium is 44 in the setting of nausea/vomiting/diarrhea and recent med changes involving increasing dose of hydrochlorothiazide. Labs plus clinical picture
points towards this diagnosis.
-Review of systems negative for fever chills nausea vomiting headache abdominal pain lethargy lightheadedness dizziness syncope.
- Physical examination is benign for any positive pertinent findings.
-Trend CMP for electrolyte levels
- Discontinue hydrochlorothiazide
-Today sodium level is 127 and trending up, fluid restrict, lasix on hold
Asymptomatic bradycardia:
- Overnight, patients heart rate is ranging from 53-55 bpm
- No lightheadedness, dizziness, syncope, shortness of breath, palpitations
- Hold Coreg as it can cause further bradycardia
- Initial EKG showed sinus rhythm with first-degree AV block
Hematoma of occipital region due to fall:
- Patient's blood thinner is being held, currently on heparin drip
- Neurochecks every 4 hourly
- Acetaminophen 650 as needed
- Fall precautions
Essential hypertension:
- Continue on clonidine, lisinopril
- Coreg held
Hypothyroidism:
- Continue levothyroxine 125 mcg
Pulmonary hypertension:
- Continue sildenafil, patient is on 4 L oxygen
Insulin-dependent diabetes mellitus:
- Glucose is 138 well-controlled. Consulted diabetes nurse practitioner. Increased AC NovoLog to 8 units. Cont Lantus 10 units in AM and Low corrective insulin.
DVT prophylaxis: Heparin
Full code
Anticipated Discharge: 24 - 48 hours
Subjective/Interval History
-
Date of Service: March 01, 2025
No acute medical complaints
She has been bradycardic overnight with a heart rate of 53-55 beats per minute.
Objective Data
-
Labs:
Laboratory Results
03/01/25 03/01/25
04:08 09:54
WBC 5.5
Hgb 11.4 L
Hct 31.8 L
Plt Count 154
Sodium 127 L
Potassium 4.6
Chloride 91 L
Carbon Dioxide 32 H
BUN 34 H
Creatinine 1.1 H
Glucose 138 H
Calcium 8.9
Vital Signs:
Vital Signs
Temp Pulse Resp BP Pulse Ox
97.7 F 53 19 159/40 98
03/01/25 12:16 03/01/25 10:06 03/01/25 10:06 03/01/25 10:06 03/01/25 10:06
I&O
02/28/25 03/01/25 03/02/25
06:59 06:59 06:59
Intake Total 600 / 600 730 / 730 240 / 240
Output Total 2350 / 2350 1150 / 1150 800 / 800
Balance -1750 / -1750 -420 / -420 -560 / -560
Review of Systems
-
History Source: Patient
All other systems: Reviewed and negative
Constitutional: Denies Fever, Weight Loss, No Appetite, Fatigue or Night Sweats
Respiratory: Denies Cough, Hemoptysis, Trouble Breathing or Wheezing
Cardiac: Denies Chest Pain, Diaphoresis, Palpitations or Syncope
Abdomen/GI: Reports Abdominal Pain and Diarrhea; Denies Nausea, Vomiting, Constipated or Bloody Stools
Genitourinary: Denies Dysuria, Frequency, Flank Pain or Incontinence
Musculoskeletal: Denies Joint Pain, Joint Swelling or Muscle Pain
Neuro: Denies Dizzy, Headache, Weakness, Numbness, Tremors or Lightheadedness
Hematologic / Lymphatic: Denies Bleeding
Physical Exam
-
General: Well Developed
Respiratory: Clear to Auscultation and Other (On home oxygen 4 L baseline)
Cardiac: Regular Rhythm and S1/S2
GI: Soft, Nontender, Nondistended and Normal Bowel Sounds
Musculoskeletal: No Clubbing, No Cyanosis and No Edema
Skin: Warm
Neuro: AO x 3
Data Reviewed
-
Labs: Labs Reviewed by me and Discussed with Physician
--- NOTE | 2025-03-01 16:14 | PTCARENOTE ---
Rec'd pt this AM. AAO x3. OOB x2 with walker to chair and bathroom. forgetful at times. vital signs stable.
--- NOTE | 2025-03-01 16:27 | CM ---
Patient seen at bedside in IMU. Patient daughter called to CM and family asking for referrals for [facility], [facility], [facility] and [facility]. CM will send referrals via all script. CM will continue to follow for discharge planning needs.
Plan; SNF; pending will need auth
[2025-03-01] MEDS: CRESTOR 20 MG PO (16:54)
[2025-03-01 17:04] LABS: Glucose - Point of Care 189 mg/dl (70-99)
[2025-03-01 17:10] LABS: Magnesium 2.0 mg/dl (1.6-2.3)
[2025-03-01] MEDS: COREG 25 MG PO (19:59)
[2025-03-01 21:12] LABS: Glucose - Point of Care 160 mg/dl (70-99)
[2025-03-02] VITALS (21 sets, daily range): BP systolic 72–216; BP diastolic 33–106; BMI 30.9
[2025-03-02] MEDS: APRESOLINE 10 MG IV ×2 (02:08→15:05)
[2025-03-02] MEDS: FLUSH (NSS) 2 FLUSH IV (02:09)
--- NOTE | 2025-03-02 04:22 | PTCARENOTE ---
Pt resting well overnight. AAOx3. Drowsy/forgetful at times. Admits to pain right rib area and back of head from previous fall. Medicated with Tylenol as ordered with good relief. Wore own CPAP overnight. Afebrile. SB/1 degree AVB//BBB/PQT on CM.
Hypertensive at times. Medicated with Apresoline as ordered. No change from previous assessment. Maintained on Q2hr turns. Call carmen within reach. Will continue to monitor.
[2025-03-02] MEDS: SYNTHROID 200 MCG PO (05:44)
[2025-03-02 05:49] LABS: Blood Urea Nitrogen 40 mg/dl (7-17); Calcium 9.1 mg/dl (8.4-10.2); Carbon Dioxide 31 mmol/L (22-30); Chloride 94 mmol/L (98-107); Estimated Creatinine Clearance 39 ml/min; Glucose 131 mg/dl (70-99); Potassium 4.9 mmol/L (3.5-5.1); Sodium 127 mmol/L (135-145); eGFR 55.55
[2025-03-02 07:53] LABS: Glucose - Point of Care 166 mg/dl (70-99)
--- NOTE | 2025-03-02 08:34 | W.PN.NEPH.PH ---
Today's Communication / Plan
-
Add back Lasix
Follow BMP
Maintain current antihypertensive
Assessment/Plan
-
84-year-old female with past medical history significant for hypertension, hyperlipidemia, pulmonary hypertension, HFpEF, hypothyroidism and IDDM who presented to [facility] ED for evaluation of generalized weakness. Patient reports that yesterday she
felt that she was unable to stand or ambulate without assistance from her spouse and did up sustaining two falls.
Renal consultation for hyponatremia of 115 overcorrected to 126
Impression.
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
Severe pulmonary hypertension
Chronic home oxygen 4 L. Stable
CHF
Hypertension
Plan
Sodium 115 on admission overcorrected to 126= urine sodium 44 in the setting of Lasix and hydrochlorothiazide/SIADH physiology
Discontinued hydrochlorothiazide indefinitely
Fluid restrict and sodium now unchanged at 127
Creatinine at 1.0
Lasix on hold currently
Patient now more hypertensive with systolic blood pressure 155-170
d/w nursing.
-
-
Date of Service: March 02, 2025
CC / HPI / ROS
-
Chief Complaint:
na 115
History of Present Illness:
hypona 115 on admit with new hctz rx outpatient/difficult to control l htn on going on chronic o2 sodium now 127
Hypertensive
Creatinine stable at 1.0
Review of Systems:
Nonoliguric
Now back to mental status
]
Labs
-
Labs:
WBC 5.5 10^3/uL (4.8-10.8) 03/01/25 09:54
RBC 3.64 10^6/uL (4.20-5.40) L 03/01/25 09:54
Hgb 11.4 g/dL (12.0-16.0) L 03/01/25 09:54
Hct 31.8 % (37.0-47.0) L 03/01/25 09:54
Plt Count 154 10^3/uL (130-400) 03/01/25 09:54
Sodium 127 mmol/L (135-145) L 03/02/25 04:35
Potassium 4.9 mmol/L (3.5-5.1) 03/02/25 04:35
Chloride 94 mmol/L (98-107) L 03/02/25 04:35
Carbon Dioxide 31 mmol/L (22-30) H 03/02/25 04:35
BUN 40 mg/dl (7-17) H 03/02/25 04:35
Creatinine 1.0 mg/dL (0.6-1.0) 03/02/25 04:35
eGFR 55.55 03/02/25 04:35
Glucose 131 mg/dl (70-99) H 03/02/25 04:35
Calcium 9.1 mg/dl (8.4-10.2) 03/02/25 04:35
Ssl-N-Rfjmouxaxlo Pept 854 pg/ml 02/26/25 19:31
Albumin 4.4 g/dl (3.5-5.0) 02/26/25 17:46
Physical Exam
-
Vital Signs:
Vital Signs
Temp Pulse Resp BP Pulse Ox
98 F 59 19 168/61 96
03/02/25 07:00 03/02/25 06:00 03/02/25 06:00 03/02/25 06:00 03/02/25 06:00
Respiratory:: Bilateral: Coarse
Lung Excursion:: Normal
Abdomen:: Soft
Bowel Sounds:: Normal
Extremity Edema:: None: Bilateral:
[2025-03-02] MEDS: DELTASONE 7.5 MG PO (08:49)
[2025-03-02] MEDS: THERAGRAN 1 TABLET PO (08:49)
[2025-03-02] MEDS: CATAPRES 0.2 MG PO ×3 (08:49→22:58)
[2025-03-02] MEDS: VITAMIN D3 (cholecalciferol) 50 MCG PO (08:49)
[2025-03-02] MEDS: ZESTRIL 40 MG PO (08:50)
[2025-03-02] MEDS: COREG 25 MG PO (08:50)
[2025-03-02] MEDS: REVATIO 20 MG PO ×3 (08:50→20:57)
[2025-03-02] MEDS: TYLENOL 650 MG PO ×3 (08:51→21:00)
[2025-03-02] MEDS: HEPARIN 5000 UNITS SC ×3 (08:51→22:58)
[2025-03-02] MEDS: NOVOLOG FLEXPEN 8 UNITS SC ×3 (08:52→16:44)
[2025-03-02] MEDS: NOVOLOG FLEXPEN-LOW RESISTANCE 1 UNITS SC ×2 (08:52→16:45)
[2025-03-02] MEDS: NON-FORMULARY ITEM 1 MCG PO (08:55)
[2025-03-02] MEDS: LANTUS 0.1 UNITS SC (08:55)
[2025-03-02] MEDS: METAMUCIL, KONSYL 1 PACKET PO (08:55)
--- NOTE | 2025-03-02 09:52 | PTCARENOTE ---
C/o right thorax pain rib area- 5/10 increases to 10/10 with intermittent spasms. Tylenol given with am meds.
--- NOTE | 2025-03-02 11:14 | PTCARENOTE ---
BPs 180s/60s this am all am meds given, 10am readings 80s/40 she is asymptomatic oriented x3- had very large amt loose soft stool heme tested positive.
TT to providers- holding PO dose Lasix.
Currently back up to 110/41
[2025-03-02 12:04] LABS: Glucose - Point of Care 258 mg/dl (70-99)
[2025-03-02 12:13] LABS: Hematocrit 29.7 % (37.0-47.0); Hemoglobin 10.6 g/dL (12.0-16.0)
[2025-03-02] MEDS: ROCEPHIN 1000 MG IV (12:25)
[2025-03-02] MEDS: STERILE WATER FOR INJECTION 10 ML IV (12:25)
[2025-03-02] MEDS: PROTONIX IV 40 MG IV (12:26)
[2025-03-02] MEDS: NSS (PRESERVATIVE FREE) 10 ML IV (12:26)
[2025-03-02] MEDS: KCL ELIXIR 20 MEQ PO (12:26)
[2025-03-02] MEDS: PLAQUENIL 400 MG PO (12:26)
[2025-03-02] MEDS: LASIX PO (12:27)
[2025-03-02] MEDS: NOVOLOG FLEXPEN-LOW RESISTANCE 3 UNITS SC (12:28)
--- NOTE | 2025-03-02 13:44 | PTCARENOTE ---
Called into room by family pt was eating lunch became nauseas and vomited a scant amt white thick emesis- had just taken bite of sandwich. Removed tray - nausea resolved. GI consult noted will d/w provider
--- NOTE | 2025-03-02 15:04 | W.PN.HOSP.TC ---
Addendum entered and electronically signed by Nilda John MD 03/02/25 18:11:
Enterobacter cloacae UTI--change rocephin to oral doxy based on sensitivities
Addendum entered and electronically signed by Nilda John MD 03/02/25 18:08:
I saw and evaluated the patient independently. I reviewed and discussed the resident�s note and agree with findings and plan as documented by Dr. Barajas.
GENERAL: well developed, well nourished, obese female in no apparent distress
HEENT: NC/AT, O2 NC 4L
HEART: regular rate and rhythm, +S1, +S2
LUNGS : clear to auscultation bilaterally
ABDOM: soft, nontender, nondistended, + bowel sounds
EXT: no cyanosis, clubbing, or edema
NEUROLOGIC: grossly intact
lethargy -resolved---STAT head CT neg for acute issues--BS 249--ABG does not show significant CO2 retention, s/p IVF bolus--can downgrade to tele
vasovagal syncope/hypotension--with defecation--large heme positive brown stool--agree with GI eval--IV PPI--serial H&H
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
input--HCTZ should be stopped permanently--sodium improved to 127 and holding and s/p Samsca
hypokalemia/hypomagnesemia--replete and follow labs
Fall--could be from symptomatic hyponatremia--PT/OT--head CT neg--Fall precautions, stop neurochecks
Hematoma of occipital region due to fall
Essential hypertension--BPs labile--was lower earlier and now 216/66-- Continue on carvedilol, clonidine, lisinopril--tried to add norvasc, pt declined to take it, tried hydralazine and pt declined that as well--HR 50s, cannot use blocking
agents--consider lasix?--will defer to renal
Hypothyroidism-- Continue levothyroxine 125 mcg
Pulmonary hypertension-- Continue sildenafil, patient is on 4 L oxygen
rheumatoid arthritis--cont prednisone--no need for stress dose steroids
Insulin-dependent diabetes mellitus-- Glucose elevated--Currently on D5 fluids--She usually takes home dose of Tresiba 10 units daily but we did not have it in stock so Lantus substituted--novolog was not on her home med list at the time of my
evaluation of her--apprec DM [employer] assistance--cont insulin, SSI, short acting novolog as well
DVT proph--SC heparin
code status-- FULL CODE
Original Note:
Today's Communication/Plan
-
- blood pressure control, trend na, and observe h&H
Assessment / Plan
Assessment / Plan
Vasovagal syncope:
-Likely due to increased intra-abdominal pressure from straining
- Patient's blood pressure was 182/66 mmHg when I was in the room, received [place] text from nurse approximately 30 minutes later stating that patient's vitals dropped down to 80/40 mmHg after she had defecated. Approximately 5 minutes after
defecating her blood pressure went back up to 162/ 80 mmHg
- Monitor orthostatics
- stool softeners to avoid straining
Hemoccult positive stool:
- According to nurse the color of the stool was brown, not black, no visible blood
- Consulted GI
- Trend H&H to look for an acute bleed transfuse, transfuse hemoglobin if less than 7
- BUN is increased and this could coincide with a upper GI bleed
Acute unresponsiveness due to unknown etiology ( resolved on 03/01/2025):
- Today morning patient was non responsive, non verbal, and not following commands.
- Physical examination shows patient is alert but not oriented to place or time
- Ct brain shows no intracranial abnormalities
- VBG normal so no acid base disorder.
- Glucose 146
- Nephrology gave patient small fluid bolus
- Transfer to IMU, continue to observe, continuous neuro checks q4, check labs in AM
Acute hyper tonic hypovolemic with severe hyponatremia:
- on intial presentation, Serum osmolality is 261, urine osmolality is above 200, urine sodium is 44 in the setting of nausea/vomiting/diarrhea and recent med changes involving increasing dose of hydrochlorothiazide. Labs plus clinical picture
points towards this diagnosis.
-Review of systems negative for fever chills nausea vomiting headache abdominal pain lethargy lightheadedness dizziness syncope.
- Physical examination is benign for any positive pertinent findings.
-Trend CMP for electrolyte levels
- Discontinue hydrochlorothiazide
-Today sodium level is 127 and same as yesterday, fluid restrict, lasix on hold
- Continue to follow up with nephrology
Asymptomatic bradycardia:
- Overnight, patients heart rate is ranging from 53-55 bpm
- No lightheadedness, dizziness, syncope, shortness of breath, palpitations
- Hold Coreg as it can cause further bradycardia
- Initial EKG showed sinus rhythm with first-degree AV block
Hematoma of occipital region due to fall:
- Patient's blood thinner is being held, currently on heparin drip
- Neurochecks every 4 hourly
- Acetaminophen 650 as needed
- Fall precautions
Essential hypertension:
-Today blood pressure is 216/66, patient is asymptomatic, continue to observe
-Will make sure that patient's medications are spaced apart adequately
- Continue on clonidine, lisinopril, carvedilol as needed hydralazine
Hypothyroidism:
- Continue levothyroxine 125 mcg
Pulmonary hypertension:
- Continue sildenafil, patient is on 4 L oxygen
Insulin-dependent diabetes mellitus:
- Glucose is 138 well-controlled. Consulted diabetes nurse practitioner. Increased AC NovoLog to 8 units. Cont Lantus 10 units in AM and Low corrective insulin.
Rheumatoid arthritis:
- Continue prednisone and watch for stress dose steroid needs
DVT prophylaxis: Heparin
Full code
Anticipated Discharge: 24 - 48 hours
Subjective/Interval History
-
Date of Service: March 02, 2025
No acute medical complaints
Nurse reports that shortly after seeing the patient, she experienced a large bowel movement with Hemoccult positive stool.
Objective Data
-
Labs:
Laboratory Results
03/02/25 03/02/25 03/02/25
04:35 11:53 17:45
Hgb 10.6 L Pending
Hct 29.7 L Pending
Sodium 127 L
Potassium 4.9
Chloride 94 L
Carbon Dioxide 31 H
BUN 40 H
Creatinine 1.0
Glucose 131 H
Calcium 9.1
03/02/25
23:45
Hgb Pending
Hct Pending
Sodium
Potassium
Chloride
Carbon Dioxide
BUN
Creatinine
Glucose
Calcium
Vital Signs:
Vital Signs
Temp Pulse Resp BP Pulse Ox
97.6 F 58 19 216/66 100
03/02/25 11:00 03/02/25 14:00 03/02/25 14:00 03/02/25 13:37 03/02/25 14:00
I&O
03/01/25 03/02/25 03/03/25
06:59 06:59 06:59
Intake Total 730 / 730 240 / 240 200 / 200
Output Total 1150 / 1150 1300 / 1300 700 / 700
Balance -420 / -420 -1060 / -1060 -500 / -500
Review of Systems
-
History Source: Patient
All other systems: Reviewed and negative
Constitutional: Denies Fever, Weight Loss, No Appetite, Fatigue or Night Sweats
Respiratory: Denies Cough, Hemoptysis, Trouble Breathing or Wheezing
Cardiac: Denies Chest Pain, Diaphoresis, Palpitations or Syncope
Abdomen/GI: Reports Abdominal Pain and Diarrhea; Denies Nausea, Vomiting, Constipated or Bloody Stools
Genitourinary: Denies Dysuria, Frequency, Flank Pain or Incontinence
Musculoskeletal: Denies Joint Pain, Joint Swelling or Muscle Pain
Neuro: Denies Dizzy, Headache, Weakness, Numbness, Tremors or Lightheadedness
Hematologic / Lymphatic: Denies Bleeding
Physical Exam
-
General: Well Developed
Respiratory: Clear to Auscultation and Other (On home oxygen 4 L baseline)
Cardiac: Regular Rhythm and S1/S2
GI: Soft, Nontender, Nondistended and Normal Bowel Sounds
Musculoskeletal: No Clubbing, No Cyanosis and No Edema
Skin: Warm
Neuro: AO x 3
Data Reviewed
-
Labs: Labs Reviewed by me and Discussed with Physician
[2025-03-02] MEDS: NORVASC PO (16:17)
[2025-03-02] MEDS: CRESTOR 20 MG PO (16:18)
[2025-03-02 16:48] LABS: Glucose - Point of Care 154 mg/dl (70-99)
--- NOTE | 2025-03-02 16:51 | CON.GI ---
Consultation
-
Date/Time Consultation Requested: 03/02/25 12/11pm
Date/Time Consultation Performed: 03/02/25 4:51pm
Requesting Provider: Tip Barajas
Performing Provider: Saulo Calzada
Reason for Consultation: Heme positive
Medical History
Chief Complaint / HPI
Chief Complaint: Heme positive
History of Present Illness:
84yo female admitted for hyponatremia, falls. BPs were hypertensive, then today during large BM, pt dropped to 80/40. Stool was checked and heme positive brown. Denies BPR or melena, except occasional hemorrhoidal bleeding. She had recent
hemorrhoid flare couple weeks ago with rectal bleeding that subsequently resolved. She reports loose stools and occasional incontinence and was considering seeking GI evaluation. She has had multiple colonosocpies in the past with Dr Pedraza
negative for polyps. After last colonoscopy was not recommended f/u due to age, which was year ago, does not recall how long. Rarely takes advil, none recently. Denies EtOH.
Past Medical History
Past Medical History: CHF, HTN, NIDDM and Other (pulmonary HTN. ILD. RA)
Past Surgical History: Appendectomy, Cholecystectomy and
Social History
Tobacco: Non-Smoker
Alcohol: None
Family History
Family History: Reviewed & Not Pertinent
Allergies / Home Medications
Allergy/AdvReac Type Severity Reaction Status Date / Time
nitrofurantoin (From Allergy Unknown Verified 02/07/25 14:19
Macrodantin)
phenobarbital Allergy Unknown Verified 02/07/25 14:19
�Medication �Instructions �Recorded
carvedilol 25 mg tablet 25 mg PO BID Blood Pressure 02/26/25
cholecalciferol (vitamin D3) 50 50 mcg PO DAILY Supplement 02/26/25
mcg (2,000 unit) tablet (Vitamin
D3)
clonidine HCl 0.2 mg tablet 0.2 mg PO TID Blood Pressure 02/26/25
furosemide 40 mg tablet 80 mg PO NOON Fluid 02/26/25
Retention/Swelling
hydrochlorothiazide 25 mg tablet 25 mg PO DAILY Blood Pressure 02/26/25
hydroxychloroquine 200 mg tablet 400 mg PO NOON Autoimmune Disorder 02/26/25
insulin degludec 100 unit/mL 10 unit SC DAILY Diabetes 02/26/25
subcutaneous solution (Tresiba
U-100 Insulin)
levothyroxine 200 mcg tablet 200 mcg PO DAILY Thyroid 02/26/25
lisinopril 40 mg tablet 40 mg PO DAILY Blood Pressure 02/26/25
peltgrho-zfng-lkoc 8 mg-folic 400 1 tab PO DAILY Supplement 02/26/25
mcg-K 50 mcg-lutein 300 mcg tablet
(Centrum Silver Women)
potassium chloride 10 mEq 20 meq PO NOON Supplement 02/26/25
capsule,extended release
prednisone 5 mg tablet 7.5 mg PO DAILY Autoimmune Disorder 02/26/25
psyllium 1 packet PO DAILY Constipation 02/26/25
rosuvastatin 20 mg tablet 20 mg PO QPM High Cholesterol 02/26/25
selexipag 1,000 mcg tablet 1,000 mcg PO BID Pulmonary HTN 02/26/25
(Uptravi)
sildenafil (pulm.hypertension) 20 20 mg PO TID Pulmonary HTN 02/26/25
mg tablet
tocilizumab 162 mg/0.9 mL 162 mg SC QWEEK Autoimmune Disorder 02/26/25
subcutaneous syringe (Actemra)
insulin aspart U-100 100 unit/mL 6 - 8 unit SC QACLUNCH Diabetes 02/27/25
(3 mL) subcutaneous pen (Novolog
FlexPen U-100 Insulin aspart)
insulin aspart U-100 100 unit/mL 8 - 10 unit SC QACDINNER Diabetes 02/27/25
(3 mL) subcutaneous pen (Novolog
FlexPen U-100 Insulin aspart)
insulin aspart U-100 100 unit/mL 12 unit SC QACBREAK Diabetes 02/27/25
(3 mL) subcutaneous pen (Novolog
FlexPen U-100 Insulin aspart)
Review of Systems
-
All other systems: A 12 pt ROS was Negative except as stated above in HPI
Vital Signs
Temp Pulse Resp BP Pulse Ox
98.1 F 58 19 216/66 100
03/02/25 15:00 03/02/25 14:00 03/02/25 14:00 03/02/25 13:37 03/02/25 14:00
Physical Exam
Exam
General: No Apparent Distress
HEENT: Normocephalic and Atraumatic
Respiratory: Non Labored Respirations
GI: Soft, Non Tender and Non Distended
Results
WBC 5.5 10^3/uL (4.8-10.8) 03/01/25 09:54
Hgb 10.6 g/dL (12.0-16.0) L 03/02/25 11:53
Hct 29.7 % (37.0-47.0) L 03/02/25 11:53
MCV 87.4 fL (81.0-99.0) 03/01/25 09:54
Plt Count 154 10^3/uL (130-400) 03/01/25 09:54
Absolute Neuts (auto) 3.9 10^3/uL (1.4-6.5) 03/01/25 09:54
Sodium 127 mmol/L (135-145) L 03/02/25 04:35
Potassium 4.9 mmol/L (3.5-5.1) 03/02/25 04:35
Chloride 94 mmol/L (98-107) L 03/02/25 04:35
Carbon Dioxide 31 mmol/L (22-30) H 03/02/25 04:35
BUN 40 mg/dl (7-17) H 03/02/25 04:35
Creatinine 1.0 mg/dL (0.6-1.0) 03/02/25 04:35
Calcium 9.1 mg/dl (8.4-10.2) 03/02/25 04:35
Total Bilirubin 1.2 mg/dl (0.2-1.3) 02/26/25 17:46
AST 55 U/L (14-36) H 02/26/25 17:46
ALT 50 U/L (0-35) H 02/26/25 17:46
Alkaline Phosphatase 37 U/L (38-126) L 02/26/25 17:46
Diagnostic Image Results:
Prior GI Procedures:
EGD:
Colonoscopy:
Assessment / Plan
-
Summary: 84yo female admitted for hyponatremia and falls. BP has been hypertensive, then dropped to 80/40 during large BM. Stool brown heme positive. Hgb 11.4--->10.6 from day prior. Has had multiple colonoscopies with Dr Pedraza in the past.
Reports loose stool/occ incontinence. Denies heartburn or UGI c/o
Impression:
Heme positive brown stool
Hyponatremia
fall
Loose stool/incontinence
Hemorrhoids
Recommendations:
Monitor Hgb for acute drop or evidence of GI bleed.
If no signs of active bleeding, would hold off on EGD/colonoscopy
We can follow up with her in the office to discuss her chronic GI symptoms of loose stool and incontinence
Cont metamucil.
Will follow
-
-
Thank you for consultation and allowing me to participate in the patient's care. Please call the talent acquisition relationship manager GI physician during the after hours with any questions or concerns.
[2025-03-02 19:06] LABS: Hematocrit 31.2 % (37.0-47.0); Hemoglobin 11.2 g/dL (12.0-16.0)
--- NOTE | 2025-03-02 19:07 | PTCARENOTE ---
SBP >200 around 1500- d/w Dr. Barajas PRShira IV Hydralazine given and then due for 1600 meds. BP improved 140s/60s. 1800 BP back to 87/59, H/H drawn, pt asymptomatic. Currently 112/76.
[2025-03-02] MEDS: NON-FORMULARY ITEM 1000 MCG PO (20:48)
[2025-03-02] MEDS: VIBRAMYCIN 100 MG PO (20:57)
[2025-03-02 22:04] LABS: Glucose - Point of Care 109 mg/dl (70-99)
[2025-03-02] MEDS: COREG PO (22:53)
[2025-03-03] VITALS (60 sets, daily range): BP systolic 63–194; BP diastolic 33–140; PULSE 76; O2SAT 98; BMI 31.0
[2025-03-03 00:14] LABS: Hematocrit 30.6 % (37.0-47.0); Hemoglobin 11.1 g/dL (12.0-16.0)
[2025-03-03] MEDS: APRESOLINE 10 MG IV ×2 (02:18→09:35)
[2025-03-03] MEDS: FLUSH (NSS) 2 FLUSH IV (02:19)
--- NOTE | 2025-03-03 05:00 | SUR.OPER ---
Pt resting well overnight. Medicated with Tylenol at beginning of shift with Tylenol for right rib discomfort with good relief. BP mostly stable overnight. Hypertensive x 1 medicated with Apresoline with good relief. Afebrile. SR/1degree AVB/BBB/PQT
on CM. Wore own CPAP without issue. Purewick in place 350ml TUO. No change from previous assessment. Maintained on Q2hr turns. Call carmen remains within reach. Will continue to monitor.
[2025-03-03 05:42] LABS: Hematocrit 31.9 % (37.0-47.0); Hemoglobin 11.5 g/dL (12.0-16.0)
[2025-03-03 05:53] LABS: Blood Urea Nitrogen 36 mg/dl (7-17); Calcium 9.4 mg/dl (8.4-10.2); Carbon Dioxide 29 mmol/L (22-30); Chloride 95 mmol/L (98-107); Estimated Creatinine Clearance 39 ml/min; Glucose 163 mg/dl (70-99); Potassium 4.8 mmol/L (3.5-5.1); Sodium 128 mmol/L (135-145); eGFR 55.55
--- NOTE | 2025-03-03 07:29 | W.PN.HOSP.TC ---
Addendum entered and electronically signed by Nilda John MD 03/03/25 18:41:
I saw and evaluated the patient independently. I reviewed and discussed the resident�s note and agree with findings and plan as documented by Dr. Barajas.
GENERAL: well developed, well nourished, obese female in no apparent distress
HEENT: NC/AT, O2 NC 4L
HEART: regular rate and rhythm, +S1, +S2
LUNGS : clear to auscultation bilaterally
ABDOM: soft, nontender, nondistended, + bowel sounds
EXT: no cyanosis, clubbing, or edema
NEUROLOGIC: grossly intact
lethargy -resolved---STAT head CT neg for acute issues--BS 249--ABG does not show significant CO2 retention, s/p IVF bolus
vasovagal syncope/hypotension--with defecation--large heme positive brown stool--agree with GI eval--PO PPI--serial H&H
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
input--HCTZ should be stopped permanently--sodium improved to 128 and holding and s/p Samsca
Enterobacter UTI--on doxy--finish course
hypokalemia/hypomagnesemia--replete and follow labs
Fall--could be from symptomatic hyponatremia--PT/OT--head CT neg--Fall precautions, stop neurochecks
Hematoma of occipital region due to fall
Essential hypertension--BPs labile- Continue on carvedilol, clonidine, lisinopril--tried to add norvasc, pt declined to take it, tried hydralazine and pt declined that as well--HR 50s, cannot use blocking agents--lasix restarted per renal, dropped
clonidine back to 0.1mg TID
Hypothyroidism-- Continue levothyroxine 125 mcg
Pulmonary hypertension-- Continue sildenafil, patient is on 4 L oxygen
rheumatoid arthritis--cont prednisone--no need for stress dose steroids
Insulin-dependent diabetes mellitus-- Glucose elevated--Currently on D5 fluids--She usually takes home dose of Tresiba 10 units daily but we did not have it in stock so Lantus substituted--novolog was not on her home med list at the time of my
evaluation of her--apprec DM DTP OPERATOR assistance--cont insulin, SSI, short acting novolog as well
DVT proph--SC heparin
code status-- FULL CODE
Original Note:
Today's Communication/Plan
-
- observe patients BP tomm, discharge is stable .
Assessment / Plan
Assessment / Plan
Vasovagal syncope :
-Likely due to increased intra-abdominal pressure from straining
- Patient's blood pressure was 182/66 mmHg when I was in the room, received [place] text from nurse approximately 30 minutes later stating that patient's vitals dropped down to 80/40 mmHg after she had defecated. Approximately 5 minutes after
defecating her blood pressure went back up to 162/ 80 mmHg
- Monitor orthostatics
- stool softeners to avoid straining
- PT/OT eval for orthostatic positive vitals
- taper Clonidine dose changed to 0.1 tid , due to her episodes of hypotension, since it is known to cause hypotension when used in conjunction with other blood pressure meds such as bblockers and calcium channel blockers
Hemoccult positive stool:
- According to nurse the color of the stool was brown, not black, no visible blood
- Trend H&H to look for an acute bleed transfuse, transfuse hemoglobin if less than 7
- BUN is increased and this could coincide with a upper GI bleed
- IV PPI
- GI recommends outpatient follow up if no symptoms of acute bleed
Acute unresponsiveness due to unknown etiology ( resolved on 03/01/2025):
- Today morning patient was non responsive, non verbal, and not following commands.
- Physical examination shows patient is alert but not oriented to place or time
- Ct brain shows no intracranial abnormalities
- VBG normal so no acid base disorder.
- Glucose 146
- Nephrology gave patient small fluid bolus
- Transfer to IMU, continue to observe, continuous neuro checks q4, check labs in AM
Acute hyper tonic hypovolemic with severe hyponatremia: ( admitting diagnosis)
- on intial presentation, Serum osmolality is 261, urine osmolality is above 200, urine sodium is 44 in the setting of nausea/vomiting/diarrhea and recent med changes involving increasing dose of hydrochlorothiazide. Labs plus clinical picture
points towards this diagnosis.
-Review of systems negative for fever chills nausea vomiting headache abdominal pain lethargy lightheadedness dizziness syncope.
- Physical examination is benign for any positive pertinent findings.
-Trend CMP for electrolyte levels
- Discontinue hydrochlorothiazide
-Today sodium level is 128 trending up from yesterday, fluid restrict, Lasix on hold
- Continue to follow up with nephrology
UTI:
- Urine culture positive for Enterobacter cloacae, changed ceftriaxone iv to doxycycline Po based on sensitivities
Asymptomatic bradycardia:
- Overnight, patients heart rate is ranging from 53-55 bpm
- No lightheadedness, dizziness, syncope, shortness of breath, palpitations
- Hold Coreg as it can cause further bradycardia
- Initial EKG showed sinus rhythm with first-degree AV block
Hematoma of occipital region due to fall:
- Patient's blood thinner is being held, currently on heparin drip
- Neurochecks every 4 hourly
- Acetaminophen 650 as needed
- Fall precautions
Essential hypertension:
-Today blood pressure is 133/70, patient is asymptomatic, continue to observe
-Will make sure that patient's medications are spaced apart adequately
- Patient claims that hydralazine makes her dizzy and hallucinate
- continue lisinopril 40 mg at night ( renal recc this change to reduce pill burden in AM) ,carvedilol , amlodipine
- taper Clonidine dose to 0.1 tid , due to her episodes of hypotension, since it is known to cause hypotension when used in conjunction with other blood pressure meds such as bblockers and calcium channel blockers
Hypothyroidism:
- Continue levothyroxine 125 mcg
Pulmonary hypertension:
- Continue sildenafil, patient is on 4 L oxygen
Insulin-dependent diabetes mellitus:
- Glucose is 138 well-controlled. Consulted diabetes nurse practitioner. Increased AC NovoLog to 8 units. Cont Lantus 10 units in AM and Low corrective insulin.
Rheumatoid arthritis:
- Continue prednisone and watch for stress dose steroid needs
DVT prophylaxis: Heparin
Full code
Anticipated Discharge: Today
Subjective/Interval History
-
Date of Service: March 03, 2025
No acute medical complaints.
overnight she had an episode of hypertension followed by an episode of hypotension and vomiting.
Objective Data
-
Labs:
Laboratory Results
03/03/25 03/03/25
00:07 05:20
Hgb 11.1 L 11.5 L
Hct 30.6 L 31.9 L
Sodium 128 L
Potassium 4.8
Chloride 95 L
Carbon Dioxide 29
BUN 36 H
Creatinine 1.0
Glucose 163 H
Calcium 9.4
Vital Signs:
Vital Signs
Temp Pulse Resp BP Pulse Ox
97.5 F 77 15 164/70 94
03/02/25 22:46 03/03/25 06:00 03/03/25 06:00 03/03/25 06:00 03/03/25 04:00
I&O
03/02/25 03/03/25 03/04/25
06:59 06:59 06:59
Intake Total 240 / 240 1060 / 1060
Output Total 1300 / 1300 1050 / 1050
Balance -1060 / -1060
Review of Systems
-
History Source: Patient
All other systems: Reviewed and negative
Constitutional: Denies Fever, Weight Loss, No Appetite, Fatigue or Night Sweats
Respiratory: Denies Cough, Hemoptysis, Trouble Breathing or Wheezing
Cardiac: Denies Chest Pain, Diaphoresis, Palpitations or Syncope
Abdomen/GI: Reports Abdominal Pain and Diarrhea; Denies Nausea, Vomiting, Constipated or Bloody Stools
Genitourinary: Denies Dysuria, Frequency, Flank Pain or Incontinence
Musculoskeletal: Denies Joint Pain, Joint Swelling or Muscle Pain
Neuro: Denies Dizzy, Headache, Weakness, Numbness, Tremors or Lightheadedness
Hematologic / Lymphatic: Denies Bleeding
Physical Exam
-
General: Well Developed
Respiratory: Clear to Auscultation and Other (On home oxygen 4 L baseline)
Cardiac: Regular Rhythm and S1/S2
GI: Soft, Nontender, Nondistended and Normal Bowel Sounds
Musculoskeletal: No Clubbing, No Cyanosis and No Edema
Skin: Warm
Neuro: AO x 3
[2025-03-03 08:23] LABS: Glucose - Point of Care 154 mg/dl (70-99)
[2025-03-03] MEDS: SYNTHROID 200 MCG PO (08:36)
[2025-03-03] MEDS: COREG 25 MG PO ×2 (08:38→20:39)
[2025-03-03] MEDS: CATAPRES 0.2 MG PO (08:38)
[2025-03-03] MEDS: DELTASONE 7.5 MG PO (08:39)
[2025-03-03] MEDS: HEPARIN 5000 UNITS SC ×3 (08:40→22:56)
[2025-03-03] MEDS: LASIX 80 MG PO (08:41)
[2025-03-03] MEDS: METAMUCIL, KONSYL 1 PACKET PO (08:41)
[2025-03-03] MEDS: PROTONIX IV 40 MG IV (08:42)
[2025-03-03] MEDS: NSS (PRESERVATIVE FREE) 10 ML IV (08:42)
[2025-03-03] MEDS: NON-FORMULARY ITEM 1000 MCG PO (08:43)
[2025-03-03] MEDS: REVATIO 20 MG PO ×3 (08:43→22:55)
[2025-03-03] MEDS: THERAGRAN 1 TABLET PO (08:44)
[2025-03-03] MEDS: VIBRAMYCIN 100 MG PO ×2 (08:44→20:41)
[2025-03-03] MEDS: VITAMIN D3 (cholecalciferol) 50 MCG PO (08:44)
[2025-03-03] MEDS: TYLENOL 650 MG PO (08:45)
[2025-03-03] MEDS: ZESTRIL 40 MG PO ×2 (08:45→17:23)
--- NOTE | 2025-03-03 09:01 | W.PN.GI.CBS2 ---
Today's Communication / Plan
-
No evidence of GI bleeding, Hgb stable back up to 11 without transfusion
She can follow up as outpt for heme positive stool as well as loose stools/incontinence
No need for EGD/colonoscopy at this time
Will sign off. Please call back if needed
Assessment / Plan
-
Summary: 84yo female admitted for hyponatremia and falls. BP has been hypertensive, then dropped to 80/40 during large BM. Stool brown heme positive. Hgb 11.4--->10.6 from day prior. Has had multiple colonoscopies with Dr Pedraza in the past.
Reports loose stool/occ incontinence. Denies heartburn or UGI c/o
Impression:
Heme positive brown stool. Hgb 11.4 down to 10.6, back up to 11.5 without transfusion
Hyponatremia
fall
Loose stool/incontinence
Hemorrhoids
Subjective
Subjective
Date of Service: March 03, 2025
PT reports nausea after BP med. Denies rectal bleeding
Objective
Data Reviewed
Laboratory Data:
Laboratory Results
03/03/25 05:20
03/03/25 05:20
Laboratory Results
Magnesium Cancelled 03/01/25 07:08
Total Bilirubin 1.2 mg/dl (0.2-1.3) 02/26/25 17:46
AST 55 U/L (14-36) H 02/26/25 17:46
ALT 50 U/L (0-35) H 02/26/25 17:46
Alkaline Phosphatase 37 U/L (38-126) L 02/26/25 17:46
Vital Signs and I&O:
Vital Signs
Temp Pulse Resp BP Pulse Ox
97.4 F 79 15 185/95 94
03/03/25 07:56 03/03/25 08:45 03/03/25 06:00 03/03/25 08:45 03/03/25 04:00
I&O
03/02/25 03/03/25 03/04/25
06:59 06:59 06:59
Intake Total 240 / 240 1060 / 1060
Output Total 1300 / 1300 1050 / 1050
Balance -1060 / -1060
Physical Exam
Physical Exam
GI: Soft and Non Distended
--- NOTE | 2025-03-03 09:18 | W.PN.NEPH.PH ---
Addendum entered and electronically signed by Antonino Alberto DO 03/03/25 09:29:
Correction patient is already on 80 mg of p.o. Lasix
Will move lisinopril administration to 40 mg at night to decrease pill burden in am
Original Note:
Today's Communication / Plan
-
Will add hydralazine to 25 mg 3 times daily
Heme positive stool evaluation by GI reviewed no active intervention at this time as hemoglobin is stayed
Vomiting this am (unclear etiology)
Sodium up to 128 will add back half outpatient Lasix dosage of 40 mg daily
Assessment/Plan
-
84-year-old female with past medical history significant for hypertension, hyperlipidemia, pulmonary hypertension, HFpEF, hypothyroidism and IDDM who presented to [facility] ED for evaluation of generalized weakness. Patient reports that yesterday she
felt that she was unable to stand or ambulate without assistance from her spouse and did up sustaining two falls.
Renal consultation for hyponatremia of 115 overcorrected to 126
Impression.
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
Severe pulmonary hypertension
Chronic home oxygen 4 L. Stable
CHF
Hypertension
Heme positive stool
Plan
Sodium 115 on admission overcorrected to 126= urine sodium 44 in the setting of Lasix and hydrochlorothiazide/SIADH physiology
Discontinued hydrochlorothiazide indefinitely
Fluid restrict and sodium now up to 128
Creatinine at 1.0
Will add back Lasix at 40 mg daily (1/2 outpatient dose)
Blood pressure remains uncontrolled: will add hydralazine 25mg TID
d/w nursing.
-
-
Date of Service: March 03, 2025
CC / HPI / ROS
-
Chief Complaint:
na 115
History of Present Illness:
hypona 115 on admit with new hctz rx outpatient/difficult to control l htn on going on chronic o2 sodium now 128
Hypertensive on multidrug regimen
Creatinine stable at 1.0
Review of Systems:
Nonoliguric
Now back to mental status baseline
No chest pain or shortness of breath
Patient vomited after taking meds this
]
Labs
-
Labs:
WBC 5.5 10^3/uL (4.8-10.8) 03/01/25 09:54
RBC 3.64 10^6/uL (4.20-5.40) L 03/01/25 09:54
Hgb 11.5 g/dL (12.0-16.0) L 03/03/25 05:20
Hct 31.9 % (37.0-47.0) L 03/03/25 05:20
Plt Count 154 10^3/uL (130-400) 03/01/25 09:54
Sodium 128 mmol/L (135-145) L 03/03/25 05:20
Potassium 4.8 mmol/L (3.5-5.1) 03/03/25 05:20
Chloride 95 mmol/L (98-107) L 03/03/25 05:20
Carbon Dioxide 29 mmol/L (22-30) 03/03/25 05:20
BUN 36 mg/dl (7-17) H 03/03/25 05:20
Creatinine 1.0 mg/dL (0.6-1.0) 03/03/25 05:20
eGFR 55.55 03/03/25 05:20
Glucose 163 mg/dl (70-99) H 03/03/25 05:20
Calcium 9.4 mg/dl (8.4-10.2) 03/03/25 05:20
Vtt-M-Huemitfuzeg Pept 854 pg/ml 02/26/25 19:31
Albumin 4.4 g/dl (3.5-5.0) 02/26/25 17:46
Physical Exam
-
Vital Signs:
Vital Signs
Temp Pulse Resp BP Pulse Ox
97.4 F 79 15 185/95 94
03/03/25 07:56 03/03/25 08:45 03/03/25 06:00 03/03/25 08:45 03/03/25 04:00
Cardiovascular:: Regular rate and rhythm
Respiratory:: Bilateral: Coarse
Lung Excursion:: Normal
Abdomen:: Soft
Bowel Sounds:: Normal
Extremity Edema:: None: Bilateral:
[2025-03-03] MEDS: LANTUS 0.1 UNITS SC (09:38)
[2025-03-03] MEDS: NOVOLOG FLEXPEN 8 UNITS SC ×3 (09:39→18:14)
[2025-03-03] MEDS: NOVOLOG FLEXPEN-LOW RESISTANCE 1 UNITS SC ×3 (09:39→18:14)
--- NOTE | 2025-03-03 10:24 | PTCARENOTE ---
Patients blood pressure was elevated this morning 180s/80s. Morning medications administered, patient did vomit once after medications taken. Notified Dr. Rivas and Hydralazine 10mg dose IV administered. At this time patients blood pressure os
86/39. Discussing with Dr. John at this time. Patient is asymptomatic speaking with medical team.
[2025-03-03] MEDS: NSS 250 IV (11:45)
[2025-03-03 12:39] LABS: Glucose - Point of Care 153 mg/dl (70-99)
[2025-03-03] MEDS: PLAQUENIL 400 MG PO (13:10)
[2025-03-03] MEDS: KCL ELIXIR PO (13:54)
[2025-03-03] MEDS: NORVASC PO (14:37)
[2025-03-03] MEDS: CATAPRES 0.1 MG PO ×2 (17:21→22:55)
[2025-03-03] MEDS: CRESTOR 20 MG PO (17:22)
[2025-03-03 17:53] LABS: Glucose - Point of Care 163 mg/dl (70-99)
[2025-03-03] MEDS: NON-FORMULARY ITEM 1 MCG PO (20:42)
[2025-03-03 21:30] LABS: Glucose - Point of Care 148 mg/dl (70-99)
[2025-03-04] VITALS (22 sets, daily range): BP systolic 97–221; BP diastolic 45–83; PULSE 62–75; BMI 30.7
--- NOTE | 2025-03-04 03:49 | PTCARENOTE ---
patient resting overnight. SR with 1st degree block on monitor. patient wearing own cpap without issue.purewick in place. at bedside for beginning of shift. assessment and vitals charted. call carmen in reach.
[2025-03-04] MEDS: SYNTHROID 200 MCG PO (05:08)
[2025-03-04 05:15] LABS: Hematocrit 34.1 % (37.0-47.0); Hemoglobin 11.4 g/dL (12.0-16.0); Mean Corp Hgb Conc. 33.4 g/dL (33.0-37.0); Mean Corpuscular Volume 91.2 fL (81.0-99.0); Nucleated Red Blood Cells % 0 %; Platelet Count 184 10^3/uL (130-400); Red Cell Dist. Width 13.2 % (11.5-14.5)
[2025-03-04 05:43] LABS: ALT (SGPT) 37 U/L (0-35); AST (SGOT) 34 U/L (14-36); Albumin 3.9 g/dl (3.5-5.0); Alkaline Phosphatase 33 U/L (38-126); Blood Urea Nitrogen 43 mg/dl (7-17); Calcium 9.3 mg/dl (8.4-10.2); Carbon Dioxide 32 mmol/L (22-30); Chloride 95 mmol/L (98-107); Estimated Creatinine Clearance 32 ml/min; Glucose 120 mg/dl (70-99); Magnesium 1.8 mg/dl (1.6-2.3); Potassium 4.9 mmol/L (3.5-5.1); Sodium 127 mmol/L (135-145); Total Protein 6.4 g/dl (6.3-8.2); eGFR 44.64
--- NOTE | 2025-03-04 07:30 | PN.DE.MGMTRT ---
Insulin Management
- -
03/04/2025: Diabetes Management Follow up
84 year old female admitted with c/o weakness after fall x 2, found to be Hyponatremic, sodium 115.
PMH: HTN, Pulm HTN, HFpEF, HLD, Hypothyroidism, Interstitial lung disease, Rheumatoid arthritis and T2DM. Patient reports she had no LOC with falls, had episode of N/V/D on Tuesday lasting about 24 hours. No recurrent GI symptoms since that time.
Patient has had issues recently with poorly controlled hypertension, she sees Nephrology for HTN mgt and has had several med changes of late including increases in clonidine, HCTZ and carvedilol. Prior to admission was taking Tresiba 10 units in AM,
NovoLog 10 units @breakfast, 6-8 units @lunch and 8-10 units @dinner. A1C 6.7%, Cr 1.0-->1.2, eGFR 44.64
Patient awake, alert, oriented, offers no complaints, able to discuss diabetes hx and care plan. at bedside, very supportive.
Patient states she sees Endo Dr. Briceno at [place] for ongoing diabetes care. Uses CGM- Carissa 3 for glucose monitoring. She does not adhere to a diabetic diet.
Pt was moved up to IMU due to confusion with hypotension. Mental status at baseline now. Sodium improved 127 today.
03/04 premeal glucose stable and in range 153 to 163. Fasting glucose 120 V, 127 POC.
Will make no changes to current regimen: AC NovoLog 8 units, Lantus 10 units in AM and Low corrective insulin
Patient may resume her home dose of Tresiba 10 units, and NovoLog 8 units AC at discharge
Discussed with Nurse. Will cont to follow.
Diabetes History
- -
Type of Diabetes: 2 requiring insulin
Pre-Admission Diabetes Regimen
03/04/25
05:05
Creatinine 1.2 H
Lab Results
Hemoglobin A1c 6.7 % (4.0-5.6) H 02/27/25 05:14
Insulin Pump Settings
IP Diabetes Regimen
03/03/25 03/03/25 03/03/25
08:12 12:28 17:42
Glucose
POC Glucose 154 H 153 H 163 H
03/03/25 03/04/25
21:18 05:05
Glucose 120 H
POC Glucose 148 H
Meal type: Breakfast
Amount consumed: 50%
Patient Education
[2025-03-04 07:45] LABS: Glucose - Point of Care 127 mg/dl (70-99)
[2025-03-04] MEDS: NOVOLOG FLEXPEN 8 UNITS SC ×3 (08:37→17:53)
[2025-03-04] MEDS: NOVOLOG FLEXPEN-LOW RESISTANCE SC (08:39)
[2025-03-04] MEDS: METAMUCIL, KONSYL 1 PACKET PO (08:40)
[2025-03-04] MEDS: VIBRAMYCIN 100 MG PO (08:40)
[2025-03-04] MEDS: DELTASONE 7.5 MG PO (08:40)
[2025-03-04] MEDS: THERAGRAN 1 TABLET PO (08:40)
[2025-03-04] MEDS: PROTONIX 40 MG PO (08:40)
[2025-03-04] MEDS: LASIX 80 MG PO (08:40)
[2025-03-04] MEDS: VITAMIN D3 (cholecalciferol) 50 MCG PO (08:41)
[2025-03-04] MEDS: REVATIO 20 MG PO ×3 (08:41→23:22)
[2025-03-04] MEDS: COREG 25 MG PO ×2 (08:41→20:32)
[2025-03-04] MEDS: CATAPRES 0.1 MG PO ×3 (08:41→23:06)
[2025-03-04] MEDS: HEPARIN 5000 UNITS SC ×3 (08:42→23:15)
[2025-03-04] MEDS: LANTUS 0.1 UNITS SC (08:47)
--- NOTE | 2025-03-04 09:07 | W.PN.HOSP.TC ---
Addendum entered and electronically signed by Willie Fischer MD 03/04/25 21:55:
Attending Addendum-
I saw and evaluated the patient. I reviewed the resident�s note and agree with findings and plan as documented in the resident�s note. Sub: feels stronger. had good nights sleep. called by nursing re labile BP's asymptomatic. Seen with and
daughter at bedside. No urinary sxs. Full 12 point ROS reviewed and negative except as documented Exam: Vitals reviewed in chart GEN-NAD heart RRR lungs clear abd soft LE no edema
Plan:
# Vasovagal syncope/hypotension-with defecation-resolved
# GI bleed- OP eval , resolved, GI input apprec cbc in am
# Severe Symptomatic hyponatremia
- sodium stable
- s/p 3% and Samsca
- nephro on board
- DC HCTZ
- repeat BMP in am
- transfer to tele
# Asymptomatic Bacteriuria- DC doxy
# Resistant hypertension--BPs labile- Continue on carvedilol, clonidine, lisinopril, amlodipine, lasix restarted per renal, dropped clonidine back to 0.1mg TID
-check renal art doppler r/o MAURICIO
-apprec nephro input
#Hypothyroidism-Continue levothyroxine
#Pulmonary hypertension/Chronic Hypoxemic Respiratory Failure- Continue sildenafil and selexipeg, patient is on 4 L oxygen
# rheumatoid arthritis--cont chronic prednisone
# Insulin-dependent diabetes mellitus-
-home dose of Tresiba 10 units daily -> Lantus substituted 10u, start N 8--apprec DM LDR RN assistance--cont insulin, SSI
# Bradycardia- chronic cont current meds including coreg
DVT proph--SC heparin
code status-- FULL CODE
Dispo from home will likely need SNF on DC d/w CM
ACP
Patient consented to discuss, was with and daughter, time spent explanation of advance directives, changes in health status, patient�s health care wishes if the patient becomes unable to make health decisions, goals of care, code status, and
prognosis 'i have a will and it says i want to be resuscitated' daughter will revisit will and bring in- 16 minutes
Time spent coordinating care, review of plan of care with resident, personally reviewed previous records in EMR, med rec, labs, radiology, d/w nursing, family total time documented is exclusive of any additional time listed that was spent in advance
care planning discussion -�51 minutes
Original Note:
Today's Communication/Plan
-
Discontinue antibiotics (doxycycline) since low urine culture colonies for both bacteria and yeast make UTI unlikely.
For hyponatremia (today sodium 127), continue fluid restriction with 48 ounces per day, monitoring creatinine.
For hypotension, added spironolactone 25 mg per nephrology. Renal us to evaluate for renal artery stenosis pending.
Transferred from icu to [facility].
Assessment / Plan
Assessment / Plan
Impression
84-year-old female with PMH notable for HTN, pulmonary HTN, HLD, HFpEF, hypothyroidism and IDDM who presented to [facility] ED for evaluation of weakness contributing to 2 falls and hitting her head as well as N/V/D for 1 day. She was found to have
severe hyponatremia with a sodium of 118.
Patient was unable to stand or ambulate without assistance from her spouse and sustained 2 falls 1 day before admission.
She follows with nephrology and has had several med changes recently including increases in clonidine, HCTZ and carvedilol.
Transfer out of IMU to [facility] 03/04/2025.
Plan
Acute hypertonic, hypovolemic, severe hyponatremia (admitting diagnosis)
- On intial presentation, Serum osmolality is 261, urine osmolality is above 200, urine sodium is 44 in the setting of nausea/vomiting/diarrhea and recent med changes involving increasing dose of hydrochlorothiazide. Labs plus clinical picture
points towards this diagnosis.
- Review of systems negative for fever chills nausea vomiting headache abdominal pain lethargy lightheadedness dizziness syncope.
- Physical examination is benign for any positive pertinent findings.
- Discontinue hydrochlorothiazide
- Trend CMP for Na
- Sodium 127 since 03/01/2025. Continue fluid restriction; 48 ounces per day
� Nephrology following
UTI:
- Urine culture positive for Enterobacter cloacae, changed ceftriaxone iv to doxycycline Po based on sensitivities
Essential hypertension:
- make sure that patient's medications are spaced apart adequately
- continue lisinopril 40 mg at night (renal recc this change to reduce pill burden in AM), carvedilol 25 mg p.o. twice daily, amlodipine 10 mg p.o. daily
- Clonidine dose halved to 0.1 mg tid, due to her episodes of hypotension
- hydralazine 10 mg TID IV every 6 as needed. Patient claims that hydralazine makes her dizzy and hallucinate
- spironolactone 25 mg PO daily added 03/04/25
- sildenafil 20 mg PO TID at MN, 8 am and 4 pm
- Renal ultrasound pending
Vasovagal syncope 03/03/25:
-Likely due to increased intra-abdominal pressure from straining
- Patient's blood pressure was 182/66 mmHg when I was in the room, received [place] text from nurse approximately 30 minutes later stating that patient's vitals dropped down to 80/40 mmHg after she had defecated. Approximately 5 minutes after
defecating her blood pressure went back up to 162/ 80 mmHg
- Monitor orthostatics
- stool softeners to avoid straining
- PT/OT eval for orthostatic positive vitals
- Clonidine dose changed to 0.1 tid, due to her episodes of hypotension
Hemoccult positive stool:
BP has been hypertensive, then dropped to 80/40 during large BM. Stool brown heme positive. Hgb 11.4--->10.6. Has had multiple colonoscopies with Dr Pedraza in the past. Reports loose stool/occ incontinence. Denies heartburn or UGI c/o
- According to nurse the color of the stool was brown, not black, no visible blood
- Trend H&H to look for an acute bleed transfuse, transfuse hemoglobin if less than 7
- BUN is increased and this could coincide with a upper GI bleed
- IV PPI
GI recommended outpatient follow up due to no symptoms of acute bleed. Signed off
Asymptomatic bradycardia:
heart rate drops to 53-55 bpm. No lightheadedness, dizziness, syncope, shortness of breath, palpitations
Initial EKG showed sinus rhythm with first-degree AV block
- Coreg (25 mg p.o. twice daily) parameters: Hold if SBP less than 100, DBP less than 60, HR less than 60
Hematoma of occipital region due to fall:
- Patient's blood thinner is being held, currently on heparin drip
- Acetaminophen 650 as needed
- Fall precautions
Acute unresponsiveness due to unknown etiology (resolved on 03/01/2025):
- non responsive, non verbal, and not following commands.
- Physical examination shows patient alert but not oriented to place or time
- CT Head shows no intracranial abnormalities
- VBG normal so no acid base disorder.
- Nephrology gave small fluid bolus
- Transferred to IMU, neuro checks q4, checked labs in AM
Hypothyroidism:
- Continue levothyroxine 125 mcg
Pulmonary hypertension:
- Continue sildenafil, patient is on 4 L oxygen
Insulin-dependent diabetes mellitus:
- Glucose is 138 well-controlled. Consulted diabetes nurse practitioner. Increased AC NovoLog to 8 units. Cont Lantus 10 units in AM and Low corrective insulin.
Rheumatoid arthritis:
- Continue prednisone and watch for stress dose steroid needs
DVT prophylaxis: Heparin
Full code
Anticipated Discharge: Within 24 hours
Subjective/Interval History
-
Date of Service: March 04, 2025
No acute events overnight. This morning, patient's only complaints were back pain associated with hand frail detaching and hitting her ribs/back at home. She denied lightheadedness, dizziness, vision changes. She denied dysuria and increased
urinary frequency.
Objective Data
-
Labs:
Laboratory Results
03/04/25
05:05
WBC 7.9
Hgb 11.4 L
Hct 34.1 L
Plt Count 184
Sodium 127 L
Potassium 4.9
Chloride 95 L
Carbon Dioxide 32 H
BUN 43 H
Creatinine 1.2 H
Glucose 120 H
Calcium 9.3
Total Bilirubin 0.7
AST 34
ALT 37 H
Alkaline Phosphatase 33 L
Vital Signs:
Vital Signs
Temp Pulse Resp BP Pulse Ox
98.5 F 68 15 169/72 95
03/04/25 07:48 03/04/25 04:45 03/04/25 04:45 03/04/25 04:45 03/04/25 04:00
I&O
03/03/25 03/04/25 03/05/25
06:59 06:59 06:59
Intake Total 1060 / 1060 832 / 832
Output Total 1050 / 1050 1000 / 1000
Balance -168 / -168
Review of Systems
-
History Source: Patient and Family
All other systems: Reviewed and negative
Physical Exam
-
General: Well Developed, Well Nourished, No Apparent Distress, Comfortable and Conversant
HEENT: Normocephalic, Atraumatic, Anicteric, Nose Appears Normal and Ears Appear Normal
Respiratory: Clear to Auscultation
Cardiac: Regular Rhythm and S1/S2
GI: Soft, Nontender, Nondistended and Normal Bowel Sounds
Musculoskeletal: No Clubbing, No Cyanosis and No Edema (Wrinkle skin on lower extremities)
Skin: Warm and Dry
Neuro: Awake and Alert
Psych: Calm
[2025-03-04] MEDS: NON-FORMULARY ITEM PO (10:10)
--- NOTE | 2025-03-04 10:47 | W.PN.NEPH.PH ---
Today's Communication / Plan
-
MRA
Assessment/Plan
-
84-year-old female with past medical history significant for hypertension, hyperlipidemia, pulmonary hypertension, HFpEF, hypothyroidism and IDDM who presented to [facility] ED for evaluation of generalized weakness. Patient reports that yesterday she
felt that she was unable to stand or ambulate without assistance from her spouse and did up sustaining two falls.
Renal consultation for hyponatremia of 115 overcorrected to 126
Impression.
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
Severe pulmonary hypertension
Chronic home oxygen 4 L. Stable
CHF
Hypertension
Heme positive stool
Plan
add spironolactone
check MAURICIO dopplers
follow BMP
off shift sildenafil
-
-
Date of Service: March 04, 2025
CC / HPI / ROS
-
Chief Complaint:
HTN, hyponatremia
History of Present Illness:
Na up to 127
BP still high
but now variable and drops midday
Cr stable
Review of Systems:
Nonoliguric
Now back to mental status baseline
No chest pain or shortness of breath
Labs
-
Labs:
WBC 7.9 10^3/uL (4.8-10.8) 03/04/25 05:05
RBC 3.74 10^6/uL (4.20-5.40) L 03/04/25 05:05
Hgb 11.4 g/dL (12.0-16.0) L 03/04/25 05:05
Hct 34.1 % (37.0-47.0) L 03/04/25 05:05
Plt Count 184 10^3/uL (130-400) 03/04/25 05:05
Sodium 127 mmol/L (135-145) L 03/04/25 05:05
Potassium 4.9 mmol/L (3.5-5.1) 03/04/25 05:05
Chloride 95 mmol/L (98-107) L 03/04/25 05:05
Carbon Dioxide 32 mmol/L (22-30) H 03/04/25 05:05
BUN 43 mg/dl (7-17) H 03/04/25 05:05
Creatinine 1.2 mg/dL (0.6-1.0) H 03/04/25 05:05
eGFR 44.64 03/04/25 05:05
Glucose 120 mg/dl (70-99) H 03/04/25 05:05
Calcium 9.3 mg/dl (8.4-10.2) 03/04/25 05:05
Upi-W-Ggtpimwdqiq Pept 854 pg/ml 02/26/25 19:31
Albumin 3.9 g/dl (3.5-5.0) 03/04/25 05:05
Physical Exam
-
Vital Signs:
Vital Signs
Temp Pulse Resp BP Pulse Ox
98.5 F 68 22 173/50 86
03/04/25 07:48 03/04/25 09:46 03/04/25 09:46 03/04/25 09:46 03/04/25 09:46
Cardiovascular:: Regular rate and rhythm
Respiratory:: Bilateral: Coarse
Lung Excursion:: Normal
Abdomen:: Nontender and Soft
Bowel Sounds:: Normal
Extremity Edema:: None: Bilateral:
[2025-03-04] MEDS: ALDACTONE 25 MG PO (11:25)
[2025-03-04] MEDS: TYLENOL 650 MG PO ×2 (11:26→23:13)
[2025-03-04 11:49] LABS: Glucose - Point of Care 174 mg/dl (70-99)
[2025-03-04] MEDS: PLAQUENIL 400 MG PO (13:19)
[2025-03-04] MEDS: KCL ELIXIR 20 MEQ PO (13:19)
[2025-03-04] MEDS: NOVOLOG FLEXPEN-LOW RESISTANCE 1 UNITS SC ×2 (13:20→17:54)
[2025-03-04] MEDS: NON-FORMULARY ITEM 1000 MCG PO (13:23)
--- NOTE | 2025-03-04 14:47 | PTCARENOTE ---
OOB to [facility]- had large bm, orthos vs done (negative). Sitting up in recliner chair no dizziness reported. Report to Benita, transfer to 317-2.
--- NOTE | 2025-03-04 15:24 | CM ---
Discharge POC: Therapy recommendation for SNF. Referrals previously forwarded. [facility] has accepted. Patient will need to bring her own CPAP and the medication Uptravi.
--- NOTE | 2025-03-04 15:50 | PTCARENOTE ---
Received pt from IMU via stretcher. Stretcher pulled in next to bed, pt ambulated from stretcher to bed x1 with RW. AAOx3, recent falls, bed alarm placed and plugged in. Assessed and oriented to room. Pt verbalized understanding of call carmen. Call
carmen within close reach. Will continue to monitor.
[2025-03-04] MEDS: NORVASC 10 MG PO (15:55)
[2025-03-04 16:35] LABS: Glucose - Point of Care 195 mg/dl (70-99)
[2025-03-04] MEDS: CRESTOR 20 MG PO (17:05)
[2025-03-04] MEDS: ZESTRIL 40 MG PO (17:06)
[2025-03-04 21:47] LABS: Glucose - Point of Care 121 mg/dl (70-99)
[2025-03-04] MEDS: NON-FORMULARY ITEM 1 MCG PO (23:08)
[2025-03-05 06:00] VITALS: BMI 31.3
[2025-03-05] MEDS: SYNTHROID 200 MCG PO (06:20)
[2025-03-05 07:25] LABS: Hematocrit 29.5 % (37.0-47.0); Hemoglobin 10.4 g/dL (12.0-16.0); Mean Corp Hgb Conc. 35.3 g/dL (33.0-37.0); Mean Corpuscular Volume 89.1 fL (81.0-99.0); Nucleated Red Blood Cells % 0 %; Platelet Count 176 10^3/uL (130-400); Red Cell Dist. Width 13.0 % (11.5-14.5)
[2025-03-05 07:37] LABS: ALT (SGPT) 36 U/L (0-35); AST (SGOT) 34 U/L (14-36); Albumin 3.6 g/dl (3.5-5.0); Alkaline Phosphatase 32 U/L (38-126); Blood Urea Nitrogen 43 mg/dl (7-17); Calcium 9.2 mg/dl (8.4-10.2); Carbon Dioxide 31 mmol/L (22-30); Chloride 94 mmol/L (98-107); Estimated Creatinine Clearance 32 ml/min; Glucose 99 mg/dl (70-99); Potassium 4.7 mmol/L (3.5-5.1); Sodium 126 mmol/L (135-145); Total Protein 5.8 g/dl (6.3-8.2); eGFR 44.64
[2025-03-05 07:39] VITALS: BP 176/74
[2025-03-05] MEDS: NOVOLOG FLEXPEN-LOW RESISTANCE SC (07:45)
[2025-03-05 07:47] LABS: Glucose - Point of Care 120 mg/dl (70-99)
--- NOTE | 2025-03-05 07:52 | PN.DE.MGMTRT ---
Insulin Management
- -
03/05/2025: Diabetes Management Follow up
84 year old female admitted with c/o weakness after fall x 2, found to be Hyponatremic, sodium 115.
PMH: HTN, Pulm HTN, HFpEF, HLD, Hypothyroidism, Interstitial lung disease, Rheumatoid arthritis and T2DM. Patient reports she had no LOC with falls, had episode of N/V/D on Tuesday lasting about 24 hours. No recurrent GI symptoms since that time.
Patient has had issues recently with poorly controlled hypertension, she sees Nephrology for HTN mgt and has had several med changes of late including increases in clonidine, HCTZ and carvedilol. Prior to admission was taking Tresiba 10 units in AM,
NovoLog 10 units @breakfast, 6-8 units @lunch and 8-10 units @dinner. A1C 6.7%, Cr 1.0-->1.2, eGFR 44.64
Patient awake, alert, oriented, offers no complaints, able to discuss diabetes hx and care plan. at bedside, very supportive.
Patient states she sees Agus Briceno at [facility] for ongoing diabetes care. Uses CGM- Carissa 3 for glucose monitoring. She does not adhere to a diabetic diet.
03/04 premeal glucose stable and in range 121 to 195.
03/05 Fasting glucose 120. Will continue AC NovoLog 8 units with breakfast and increase lunch and dinner to 9 units, with Lantus 10 units in AM and Low corrective insulin
Patient may resume her home dose of Tresiba 10 units, and NovoLog 8 units AC at discharge
Discussed with Nurse. Will cont to follow.
Diabetes History
- -
Type of Diabetes: 2 requiring insulin
Pre-Admission Diabetes Regimen
03/05/25
06:37
Creatinine 1.2 H
Lab Results
Hemoglobin A1c 6.7 % (4.0-5.6) H 02/27/25 05:14
Insulin Pump Settings
IP Diabetes Regimen
03/04/25 03/04/25 03/04/25
11:38 16:34 21:45
Glucose
POC Glucose 174 H 195 H 121 H
03/05/25 03/05/25
06:37 07:45
Glucose 99
POC Glucose 120 H
Meal type: Breakfast
Amount consumed: 75%
Patient Education
[2025-03-05] MEDS: NOVOLOG FLEXPEN SC ×2 (08:00→10:17)
--- NOTE | 2025-03-05 08:35 | W.PN.HOSP.TC ---
Addendum entered and electronically signed by Willie Fischer MD 03/05/25 20:21:
Attending Addendum-
I saw and evaluated the patient. I reviewed the resident�s note and agree with findings and plan as documented in the resident�s note. Sub: didnt sleep well. feels weak today. Seen with at bedside. No urinary sxs denies CP palps GOMEZ. Full 12
point ROS reviewed and negative except as documented Exam: Vitals reviewed in chart GEN-NAD heart RRR lungs clear abd soft LE no edema Neruo AAO x 3 MS 09/10
Plan:
# Vasovagal syncope/hypotension-with defecation-resolved
# GI bleed- OP eval , resolved, GI input apprec, cbc in am
# Severe Symptomatic hyponatremia
- sodium a bit lower today
- s/p 3% and Samsca
- nephro on board
- decrease lasix
- DC HCTZ
- repeat BMP in am
# Asymptomatic Bacteriuria- DC doxy, CTM for sxs
# Resistant hypertension
-BPs labile-continue on carvedilol, clonidine, lisinopril, amlodipine, clonidine, lasix dose decreased, ADD spironolactone-monitor potassium closely
-renal art Doppler-neg for MAURICIO
-apprec nephro input
# Hypothyroidism-Continue levothyroxine
# CKD3a- cr @ baseline and stable
# Pulmonary hypertension/Chronic Hypoxemic Respiratory Failure- Continue sildenafil and selexipag, patient is on 4 L oxygen at home
# Rheumatoid arthritis--cont chronic prednisone
# Insulin-dependent diabetes mellitus
-home dose of Tresiba 10 units and N8 -> Lantus substituted will adjust dosage-apprec DM SALES FACILITATOR assistance- cont SSI
# Bradycardia- chronic cont current meds including coreg
DVT proph--SC heparin
code status-- FULL CODE
Dispo- from home DC to SNF in am
Time spent coordinating care, review of plan of care with resident, personally reviewed records in EMR, med rec, consults, notes, labs, radiology, d/w nursing and � 51mins
Original Note:
Today's Communication/Plan
-
Decreased home 80 mg furosemide to 40 mg po daily, given Na remaining at 126-128 for 5 days.
Renal ultrasound: Examination slightly limited by overlying bowel gas. No flow-limiting renal artery stenosis identified sonographically
Anticipate discharge tomorrow to [facility] SNF.
Lidocaine patch provided for patient's right side muscular strain.
Assessment / Plan
Assessment / Plan
Impression
84-year-old female with PMH notable for HTN, pulmonary HTN, HLD, HFpEF, hypothyroidism and IDDM who presented to [facility] ED for evaluation of weakness contributing to 2 falls and hitting her head as well as N/V/D for 1 day. She was found to have
severe hyponatremia with a sodium of 118.
Patient was unable to stand or ambulate without assistance from her spouse and sustained 2 falls 1 day before admission.
She follows with nephrology and had several med changes recently before admission including increases in clonidine, HCTZ and carvedilol.
Transferred out of IMU to [facility] 03/04/2025.
Plan
Acute hypertonic, hypovolemic, severe hyponatremia (admitting diagnosis)
On admission: Na 118, Serum osmolality 261, urine osmolality > 200, urine sodium 44, in the setting of nausea/vomiting/diarrhea and recent increased hydrochlorothiazide.
- Review of systems negative for fever chills nausea vomiting headache abdominal pain lethargy lightheadedness dizziness syncope.
- Discontinue hydrochlorothiazide
- Trend CMP for Na (baseline 138) and creatinine (baseline 1.0, for dehydration on lasix)
Sodium 126-128 since 03/01/2025.
- Continue fluid restriction; 48 ounces per day
- Furosemide 80 mg PO daily decreased to 40 mg PO daily
Nephrology following
UTI:
- Urine culture positive for Enterobacter cloacae, changed ceftriaxone iv to doxycycline Po based on sensitivities
Essential hypertension:
- make sure that patient's medications are spaced apart adequately
- continue lisinopril 40 mg at night (renal recc this change to reduce pill burden in AM),
- Continue home carvedilol 25 mg p.o. twice daily
- added amlodipine 10 mg p.o. daily
- Clonidine dose halved to 0.1 mg tid, due to her episodes of hypotension
- hydralazine 10 mg TID IV every 6 as needed. Patient claims that hydralazine makes her dizzy and hallucinate
- spironolactone 25 mg PO daily started 03/04/25
- sildenafil 20 mg PO TID at MN, 8 am and 4 pm
- Renal ultrasound: Examination slightly limited by overlying bowel gas. No flow-limiting renal artery stenosis identified sonographically
Vasovagal syncope 03/03/25:
-Likely due to increased intra-abdominal pressure from straining
- Patient's blood pressure was 182/66 mmHg when I was in the room, received [place] text from nurse approximately 30 minutes later stating that patient's vitals dropped down to 80/40 mmHg after she had defecated. Approximately 5 minutes after
defecating her blood pressure went back up to 162/ 80 mmHg
- Monitor orthostatics
- stool softeners to avoid straining
- PT/OT eval for orthostatic positive vitals
- Clonidine dose changed to 0.1 tid, due to her episodes of hypotension
Hemoccult positive stool:
BP has been hypertensive, then dropped to 80/40 during large BM. Stool brown heme positive. Hgb 11.4--->10.6. Has had multiple colonoscopies with Dr Pedraza in the past. Reports loose stool/occ incontinence. Denies heartburn or UGI c/o
- According to nurse the color of the stool was brown, not black, no visible blood
- Trend H&H to look for an acute bleed transfuse, transfuse hemoglobin if less than 7
- BUN is increased and this could coincide with a upper GI bleed
- IV PPI
GI recommended outpatient follow up due to no symptoms of acute bleed. Signed off
Asymptomatic bradycardia:
heart rate drops to 53-55 bpm. No lightheadedness, dizziness, syncope, shortness of breath, palpitations
Initial EKG showed sinus rhythm with first-degree AV block
- Coreg (25 mg p.o. twice daily) parameters: Hold if SBP less than 100, DBP less than 60, HR less than 60
Hematoma of occipital region due to fall:
- Patient's blood thinner is being held, currently on heparin drip
- Acetaminophen 650 as needed
- Fall precautions
Acute unresponsiveness due to unknown etiology (resolved on 03/01/2025):
- non responsive, non verbal, and not following commands.
- Physical examination shows patient alert but not oriented to place or time
- CT Head shows no intracranial abnormalities
- VBG normal so no acid base disorder.
- Nephrology gave small fluid bolus
- Transferred to IMU, neuro checks q4, checked labs in AM
Hypothyroidism:
- Continue levothyroxine 125 mcg
Pulmonary hypertension:
- Continue sildenafil. On 4L O2 at home. CPAP qHS
Insulin-dependent diabetes mellitus:
- Glucose is 138 well-controlled. Consulted diabetes nurse practitioner. Increased AC NovoLog to 8 units. Cont Lantus 10 units in AM and Low corrective insulin.
Rheumatoid arthritis:
- Continue prednisone and watch for stress dose steroid needs
DVT prophylaxis: Heparin
Full code
Dispo: [facility]
Anticipated Discharge: Within 24 hours
Subjective/Interval History
-
Date of Service: March 05, 2025
No acute events overnight. Patient did not have complaints other than right sided muscular strain related to her home stair rail detaching and hitting her.
Objective Data
-
Labs:
Laboratory Results
03/05/25
06:37
WBC 6.0
Hgb 10.4 L
Hct 29.5 L
Plt Count 176
Sodium 126 L
Potassium 4.7
Chloride 94 L
Carbon Dioxide 31 H
BUN 43 H
Creatinine 1.2 H
Glucose 99
Calcium 9.2
Total Bilirubin 0.7
AST 34
ALT 36 H
Alkaline Phosphatase 32 L
Vital Signs:
Vital Signs
Temp Pulse Resp BP Pulse Ox
98.5 F 82 22 176/74 95
03/05/25 07:39 03/05/25 07:39 03/05/25 07:39 03/05/25 07:39 03/05/25 07:39
I&O
03/04/25 03/05/25 03/06/25
06:59 06:59 06:59
Intake Total 832 / 832 320 / 320
Output Total 1000 / 1000
Balance -168 / -168 320 / 320
Review of Systems
-
History Source: Patient
All other systems: Reviewed and negative
Physical Exam
-
General: Well Developed, Well Nourished, No Apparent Distress and Conversant
HEENT: Normocephalic, Atraumatic, Anicteric, No Ptosis, Nose Appears Normal and Ears Appear Normal
Respiratory: Clear to Auscultation
Cardiac: Regular Rhythm and S1/S2
GI: Soft, Nontender, Nondistended and Normal Bowel Sounds
Musculoskeletal: No Clubbing, No Cyanosis and No Edema
Skin: Warm and Dry
Neuro: Awake and Alert
Psych: Calm
[2025-03-05] MEDS: ALDACTONE 25 MG PO (10:02)
[2025-03-05] MEDS: LASIX 80 MG PO (10:03)
[2025-03-05] MEDS: VITAMIN D3 (cholecalciferol) 50 MCG PO (10:03)
[2025-03-05] MEDS: DELTASONE 7.5 MG PO (10:03)
[2025-03-05] MEDS: COREG 25 MG PO ×2 (10:04→22:15)
[2025-03-05] MEDS: PROTONIX 40 MG PO (10:04)
[2025-03-05] MEDS: THERAGRAN 1 TABLET PO (10:04)
[2025-03-05] MEDS: HEPARIN 5000 UNITS SC ×3 (10:05→23:07)
[2025-03-05] MEDS: CATAPRES 0.1 MG PO ×3 (10:09→22:09)
[2025-03-05] MEDS: METAMUCIL, KONSYL 1 PACKET PO (10:10)
[2025-03-05] MEDS: REVATIO 20 MG PO ×3 (10:14→23:07)
[2025-03-05] MEDS: LASIX PO (10:18)
[2025-03-05 10:49] LABS: Glucose - Point of Care 196 mg/dl (70-99)
--- NOTE | 2025-03-05 10:49 | CM ---
Addendum entered by Linh Freitas 03/05/25 15:33:
Rec call from Luciano Auth approval # [id number] for [facility]
start date 03/06, 6 days, NRD 03/11
call with updates to [phone]
auth approval information given to Renay jara
ambulance auth Acute Care #[id number]
PLAN: [facility] 03/06
Report #: [phone]
Fax #: [phone]
transportation forms on chart, FACILITY WOULD LIKE 12:30
Addendum entered by Linh Freitas 03/05/25 15:06:
CM called [id number]
spoke with Luciano to initiate auth for [facility] starting tomorrow
Luciano galarza will call CM back with determination
Addendum entered by Linh Freitas 03/05/25 13:23:
Spoke with Renay at [facility] - bed available tomorrow - hospitalist aware
will need COVID test ordered-tt hospitalist
aware to bring CPAP (here at hospital) as well as medication Uptravi to facility
[facility] NPI #: [id number]
Dr. José Miguel Campos NPI #: [id number]
CM to initiate ins auth [id number]
PLAN: [facility] SN[facility], once auth approved
Report #: [id number]
Fax #: [phone]
transportation forms on chart, FACILITY WOULD LIKE 12:30
Original Note:
PT/OT rec SNF
will need updated notes for ins auth (notified PT/OT)
Patient/ would like [facility]
IMM explained & signed. in chart
[facility] has accepted. Patient will need to bring her own CPAP and the medication Uptravi.
will need insurance auth once bed secured. LM with Renay mcleod at [facility]
PLAN: [facility], pending bed availability when stable
[2025-03-05] MEDS: LANTUS 0.1 UNITS SC (10:52)
[2025-03-05] MEDS: NOVOLOG FLEXPEN-LOW RESISTANCE 1 UNITS SC (10:54)
[2025-03-05] MEDS: NOVOLOG FLEXPEN 9 UNITS SC ×2 (10:55→17:59)
[2025-03-05] MEDS: KCL ELIXIR 20 MEQ PO (11:35)
--- NOTE | 2025-03-05 11:38 | W.PN.NEPH.PH ---
Today's Communication / Plan
-
reduce lasix
Assessment/Plan
-
84-year-old female with past medical history significant for hypertension, hyperlipidemia, pulmonary hypertension, HFpEF, hypothyroidism and IDDM who presented to [facility] ED for evaluation of generalized weakness. Patient reports that yesterday she
felt that she was unable to stand or ambulate without assistance from her spouse and did up sustaining two falls.
Renal consultation for hyponatremia of 115 overcorrected to 126
Impression.
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
Severe pulmonary hypertension
Chronic home oxygen 4 L. Stable
CHF
Hypertension
Heme positive stool
Plan
continue spironolactone
check MAURICIO dopplers reading
follow BMP
reduce lasix (was increased for CCB edema previously)
watch BP
-
-
Date of Service: March 05, 2025
CC / HPI / ROS
-
Chief Complaint:
HTN, hyponatremia
History of Present Illness:
Na holding 126
BP still high but lower this morning
Cr stable 1.2
Review of Systems:
Nonoliguric
Now back to mental status baseline
No chest pain or shortness of breath
Labs
-
Labs:
WBC 6.0 10^3/uL (4.8-10.8) 03/05/25 06:37
RBC 3.31 10^6/uL (4.20-5.40) L 03/05/25 06:37
Hgb 10.4 g/dL (12.0-16.0) L 03/05/25 06:37
Hct 29.5 % (37.0-47.0) L 03/05/25 06:37
Plt Count 176 10^3/uL (130-400) 03/05/25 06:37
Sodium 126 mmol/L (135-145) L 03/05/25 06:37
Potassium 4.7 mmol/L (3.5-5.1) 03/05/25 06:37
Chloride 94 mmol/L (98-107) L 03/05/25 06:37
Carbon Dioxide 31 mmol/L (22-30) H 03/05/25 06:37
BUN 43 mg/dl (7-17) H 03/05/25 06:37
Creatinine 1.2 mg/dL (0.6-1.0) H 03/05/25 06:37
eGFR 44.64 03/05/25 06:37
Glucose 99 mg/dl (70-99) 03/05/25 06:37
Calcium 9.2 mg/dl (8.4-10.2) 03/05/25 06:37
Xbm-F-Fvvthxysqcb Pept 854 pg/ml 02/26/25 19:31
Albumin 3.6 g/dl (3.5-5.0) 03/05/25 06:37
Physical Exam
-
Vital Signs:
Vital Signs
Temp Pulse Resp BP Pulse Ox
98.5 F 82 22 176/74 95
03/05/25 07:39 03/05/25 10:04 03/05/25 07:39 03/05/25 10:04 03/05/25 07:39
Cardiovascular:: Regular rate and rhythm
Respiratory:: Bilateral: CTA
Lung Excursion:: Normal
Abdomen:: Nontender and Soft
Bowel Sounds:: Normal
Extremity Edema:: None: Bilateral:
[2025-03-05] MEDS: TYLENOL 650 MG PO ×2 (11:39→22:07)
[2025-03-05] MEDS: PLAQUENIL 400 MG PO (11:40)
[2025-03-05 13:09] VITALS: BP 84/42; BP 96/36; PULSE 51; PULSE 53; O2SAT 100; O2SAT 99
--- NOTE | 2025-03-05 14:15 | PTCARENOTE ---
pt sitting oob in chair, denies chest pain or sob, tolerating diet, medicated with PRN Tylenol for c/o right lower back pain/rib pain with some relief, vss, will continue to monitor.
[2025-03-05 14:47] VITALS: BP 97/52
[2025-03-05] MEDS: NON-FORMULARY ITEM 1000 MCG PO ×2 (15:00→22:08)
[2025-03-05] MEDS: NORVASC PO (15:01)
[2025-03-05] MEDS: LIDOCAINE 4% PATCH 1 PATCH TOPICAL (15:05)
[2025-03-05 16:24] LABS: COVID-19 Antigen Negative (Negative)
[2025-03-05] MEDS: ZESTRIL 40 MG PO (16:57)
[2025-03-05 17:05] LABS: Glucose - Point of Care 273 mg/dl (70-99)
[2025-03-05] MEDS: CRESTOR 20 MG PO (17:11)
[2025-03-05] MEDS: NOVOLOG FLEXPEN-LOW RESISTANCE 3 UNITS SC (17:58)
[2025-03-05] MEDS: COREG PO (20:51)
[2025-03-05 21:39] LABS: Glucose - Point of Care 185 mg/dl (70-99)
[2025-03-05] MEDS: REMOVE LIDOCAINE PATCH 1 PATCH REMOVE (22:09)
[2025-03-05 22:52] VITALS: BP 173/65
[2025-03-06] MEDS: SYNTHROID 200 MCG PO (05:18)
[2025-03-06] MEDS: TYLENOL 650 MG PO (05:28)
[2025-03-06 06:00] VITALS: BMI 31.3
[2025-03-06 07:03] LABS: Hematocrit 29.7 % (37.0-47.0); Hemoglobin 10.4 g/dL (12.0-16.0); Mean Corp Hgb Conc. 35.0 g/dL (33.0-37.0); Mean Corpuscular Volume 90.3 fL (81.0-99.0); Nucleated Red Blood Cells % 0 %; Platelet Count 166 10^3/uL (130-400); Red Cell Dist. Width 13.0 % (11.5-14.5)
[2025-03-06 07:19] VITALS: BP 94/48
[2025-03-06 07:27] LABS: ALT (SGPT) 45 U/L (0-35); AST (SGOT) 39 U/L (14-36); Albumin 3.6 g/dl (3.5-5.0); Alkaline Phosphatase 34 U/L (38-126); Blood Urea Nitrogen 49 mg/dl (7-17); Calcium 9.0 mg/dl (8.4-10.2); Carbon Dioxide 30 mmol/L (22-30); Chloride 91 mmol/L (98-107); Estimated Creatinine Clearance 30 ml/min; Glucose 84 mg/dl (70-99); Potassium 5.0 mmol/L (3.5-5.1); Sodium 123 mmol/L (135-145); Total Protein 5.9 g/dl (6.3-8.2); eGFR 40.55
[2025-03-06 07:33] LABS: Glucose - Point of Care 114 mg/dl (70-99)
--- NOTE | 2025-03-06 07:33 | W.PN.HOSP.TC ---
Addendum entered and electronically signed by Willie Fischer MD 03/07/25 08:48:
please see same day update note for attending addendum.
Philippe Fischer MD
Original Note:
Today's Communication/Plan
-
Pending nephrology recommendations regarding increased hyponatremia and return of labile blood pressures.
Orthostatic vitals.
Assessment / Plan
Assessment / Plan
Impression
84-year-old female with PMH notable for HTN, pulmonary HTN, HLD, HFpEF, hypothyroidism and IDDM who presented to [facility] ED for evaluation of weakness contributing to 2 falls and hitting her head as well as N/V/D for 1 day. She was found to have
severe hyponatremia with a sodium of 118.
Patient was unable to stand or ambulate without assistance from her spouse and sustained 2 falls 1 day before admission.
She follows with nephrology and had several med changes recently before admission including increases in clonidine, HCTZ and carvedilol.
Transferred out of IMU to [facility] 03/04/2025.
For hyponatremia, she was put on a fluid restriction, hypertonic saline was started, and her home antihypertensives were held. Sodium was corrected faster than the goal rate. Nephrology was consulted and administered Samsca 1 dose. She grew
hypertensive, so she was given normal saline IV bolus. After her hypotension resolved, fluid restriction was resumed.
Sodium increased to 126 and remained there for
Plan
Acute hypertonic, hypovolemic, severe hyponatremia (admitting diagnosis)
On admission: Na 118, Serum osmolality 261, urine osmolality > 200, urine sodium 44, in the setting of nausea/vomiting/diarrhea and recent increased hydrochlorothiazide.
- Review of systems negative for fever chills nausea vomiting headache abdominal pain lethargy lightheadedness dizziness syncope.
- Discontinue hydrochlorothiazide
- Trend CMP for Na (baseline 138) and creatinine (baseline 1.0, for dehydration on lasix)
Sodium 126-128 03/01/2025 to 03/05/25.
- Continue fluid restriction; 48 ounces per day
- Furosemide 80 mg PO daily decreased to 40 mg PO daily
Sodium decreased to 123 03/06/2025
� Considering sodium tablets 1g BID, hypertonic saline again. Pending nephrology recommendations regarding increased hyponatremia and return of labile blood pressures.
UTI:
- Urine culture positive for Enterobacter cloacae, changed ceftriaxone iv to doxycycline Po based on sensitivities. Doxycycline discontinued 03/05/25 due to patient denying dysruai since admission
Essential hypertension:
- make sure that patient's medications are spaced apart adequately
- continue lisinopril 40 mg at night (renal recc this change to reduce pill burden in AM),
- Continue home carvedilol 25 mg p.o. twice daily
- added amlodipine 10 mg p.o. daily
- Clonidine dose halved to 0.1 mg tid, due to her episodes of hypotension
- hydralazine 10 mg TID IV every 6 as needed. Patient claims that hydralazine makes her dizzy and hallucinate
- spironolactone 25 mg PO daily started 03/04/25
- sildenafil 20 mg PO TID at MN, 8 am and 4 pm
- Renal ultrasound: Examination slightly limited by overlying bowel gas. No flow-limiting renal artery stenosis identified sonographically
- Orthostatic vitals BID
Vasovagal syncope 03/03/25:
-Likely due to increased intra-abdominal pressure from straining
- Patient's blood pressure was 182/66 mmHg when I was in the room, received [place] text from nurse approximately 30 minutes later stating that patient's vitals dropped down to 80/40 mmHg after she had defecated. Approximately 5 minutes after
defecating her blood pressure went back up to 162/ 80 mmHg
- Monitor orthostatics
- stool softeners to avoid straining
- PT/OT eval for orthostatic positive vitals
- Clonidine dose changed to 0.1 tid, due to her episodes of hypotension
Hemoccult positive stool:
BP has been hypertensive, then dropped to 80/40 during large BM. Stool brown heme positive. Hgb 11.4--->10.6. Has had multiple colonoscopies with Dr Pedraza in the past. Reports loose stool/occ incontinence. Denies heartburn or UGI c/o
- According to nurse the color of the stool was brown, not black, no visible blood
- Trend H&H to look for an acute bleed transfuse, transfuse hemoglobin if less than 7
- BUN is increased and this could coincide with a upper GI bleed
- IV PPI
GI recommended outpatient follow up due to no symptoms of acute bleed. Signed off
Asymptomatic bradycardia:
heart rate drops to 53-55 bpm. No lightheadedness, dizziness, syncope, shortness of breath, palpitations
Initial EKG showed sinus rhythm with first-degree AV block
- Coreg (25 mg p.o. twice daily) parameters: Hold if SBP less than 100, DBP less than 60, HR less than 60
Hematoma of occipital region due to fall:
- Patient's blood thinner is being held, currently on heparin drip
- Acetaminophen 650 as needed
- Fall precautions
Anemia
Hemoglobin 12.3 on admission
Downtrended to hemoglobin 10.5
Acute unresponsiveness due to unknown etiology (resolved on 03/01/2025):
- non responsive, non verbal, and not following commands.
- Physical examination shows patient alert but not oriented to place or time
- CT Head shows no intracranial abnormalities
- VBG normal so no acid base disorder.
- Nephrology gave small fluid bolus
- Transferred to IMU, neuro checks q4, checked labs in AM
Hypothyroidism:
- Continue levothyroxine 125 mcg
Pulmonary hypertension:
- Continue sildenafil. On 4L O2 at home. CPAP qHS
Insulin-dependent diabetes mellitus:
- Glucose is 138 well-controlled. Consulted diabetes nurse practitioner. Increased AC NovoLog to 8 units. Cont Lantus 10 units in AM and Low corrective insulin.
Rheumatoid arthritis:
- Continue prednisone and watch for stress dose steroid needs
DVT prophylaxis: Heparin
Full code
Dispo: [facility]
Anticipated Discharge: 24 - 48 hours
Subjective/Interval History
-
Date of Service: March 06, 2025
No acute events overnight.
Patient's blood pressure have this morning to 90s, as well as yesterday between 1 and 3 PM for 2 measurements. She had received 3 blood pressure medications yesterday at 10 to 11 AM. She received sildenafil yesterday at 11 PM to 12 AM, and
sildenafil and lisinopril at 45.
Objective Data
-
Labs:
Laboratory Results
03/06/25
06:26
WBC 6.2
Hgb 10.4 L
Hct 29.7 L
Plt Count 166
Sodium 123 L
Potassium 5.0
Chloride 91 L
Carbon Dioxide 30
BUN 49 H
Creatinine (from 1.2, BL 1) 1.3 H
Glucose 84
Calcium 9.0
Total Bilirubin 0.6
AST 39 H (new)
ALT 45 H
Alkaline Phosphatase 34 L
Vital Signs:
Vital Signs
Temp Pulse Resp BP Pulse Ox
97.8 F 67 18 94/48 97
03/06/25 07:19 03/06/25 07:19 03/06/25 07:19 03/06/25 07:19 03/06/25 07:19
I&O
03/05/25 03/06/25 03/07/25
06:59 06:59 06:59
Intake Total 320 / 320 840 / 840
Balance 320 / 320 840 / 840
[2025-03-06] MEDS: NOVOLOG FLEXPEN-LOW RESISTANCE SC (07:53)
[2025-03-06] MEDS: LIDOCAINE 4% PATCH 1 PATCH TOPICAL (07:55)
[2025-03-06] MEDS: METAMUCIL, KONSYL 1 PACKET PO (07:56)
[2025-03-06] MEDS: PROTONIX 40 MG PO (07:56)
[2025-03-06] MEDS: COREG PO (07:56)
[2025-03-06] MEDS: THERAGRAN 1 TABLET PO (07:56)
[2025-03-06] MEDS: DELTASONE 7.5 MG PO (07:56)
[2025-03-06] MEDS: VITAMIN D3 (cholecalciferol) 50 MCG PO (07:56)
[2025-03-06] MEDS: ALDACTONE 25 MG PO (07:57)
[2025-03-06] MEDS: HEPARIN 5000 UNITS SC ×2 (07:57→16:08)
[2025-03-06] MEDS: LANTUS 0.1 UNITS SC (07:57)
[2025-03-06] MEDS: CATAPRES 0.1 MG PO ×3 (07:57→21:15)
[2025-03-06] MEDS: LASIX 40 MG PO ×2 (07:58→19:41)
[2025-03-06] MEDS: NOVOLOG FLEXPEN 8 UNITS SC (08:00)
[2025-03-06] MEDS: REVATIO 20 MG PO ×2 (08:08→16:04)
--- NOTE | 2025-03-06 08:14 | PN.DE.MGMTRT ---
Insulin Management
- -
03/06/2025: Diabetes Management Follow up
84 year old female admitted with c/o weakness after fall x 2, found to be Hyponatremic, sodium 115.
PMH: HTN, Pulm HTN, HFpEF, HLD, Hypothyroidism, Interstitial lung disease, Rheumatoid arthritis and T2DM. Patient reports she had no LOC with falls, had episode of N/V/D on Tuesday lasting about 24 hours. No recurrent GI symptoms since that time.
Patient has had issues recently with poorly controlled hypertension, she sees Nephrology for HTN mgt and has had several med changes of late including increases in clonidine, HCTZ and carvedilol. Prior to admission was taking Tresiba 10 units in AM,
NovoLog 10 units @breakfast, 6-8 units @lunch and 8-10 units @dinner. A1C 6.7%, Cr 1.0-->1.3, eGFR 40.55 today.
Patient awake, alert, oriented, offers no complaints, able to discuss diabetes hx and care plan. at bedside, very supportive.
Patient states she sees Agus Briceno at [place] for ongoing diabetes care. Uses CGM- Carissa 3 for glucose monitoring. She does not adhere to a diabetic diet.
03/05 premeal glucose stable and in range 99 to 273. Lunch and dinner novolog increased to 9 units with low corrective.
03/06 Fasting glucose 114. Will continue AC NovoLog 8 units with breakfast and 9 units with lunch and dinner, with Lantus 10 units in AM and Low corrective insulin
Patient may resume her home dose of Tresiba 10 units, and NovoLog 8 units AC at discharge
Discussed with Nurse. Will cont to follow.
Diabetes History
- -
Type of Diabetes: 2 requiring insulin
Pre-Admission Diabetes Regimen
03/06/25
06:26
Creatinine 1.3 H
Lab Results
Hemoglobin A1c 6.7 % (4.0-5.6) H 02/27/25 05:14
Insulin Pump Settings
IP Diabetes Regimen
03/05/25 03/05/25 03/05/25
10:48 17:04 21:38
Glucose
POC Glucose 196 H 273 H 185 H
03/06/25 03/06/25
06:26 07:31
Glucose 84
POC Glucose 114 H
Meal type: Dinner
Meal type: Lunch
Meal type: Breakfast
Amount consumed: 100%
Amount consumed: 70%
Amount consumed: 70%
Patient Education
--- NOTE | 2025-03-06 10:40 | CM ---
patient dc cancelled today Na 123
notified Renay liaison at [facility]
may need to change start date with ins co
spoke with patient and family
auth was approved by Luciano at [id number]
Auth approval # [id number] for [facility]
start date 03/06, 6 days, NRD 03/11
call with updates to [phone]
PLAN: [facility], pending a bed being available when stable
[2025-03-06 11:32] LABS: Glucose - Point of Care 262 mg/dl (70-99)
[2025-03-06] MEDS: NON-FORMULARY ITEM 1000 MCG PO ×2 (12:27→21:02)
[2025-03-06] MEDS: PLAQUENIL 400 MG PO (12:28)
[2025-03-06] MEDS: NOVOLOG FLEXPEN-LOW RESISTANCE 3 UNITS SC (12:30)
[2025-03-06] MEDS: NOVOLOG FLEXPEN 9 UNITS SC ×2 (12:31→17:26)
--- NOTE | 2025-03-06 13:48 | PN.CDI ---
CDI
- -
CDI:
Physician Documentation Request
Admit Date: 02/26/25 21:19
Dear Doctor,
Patient admitted for hyponatremia.
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
03/05 Hospitalist PN: 'Acute hypertonic, hypovolemic, severe hyponatremia (admitting diagnosis)
On admission: Na 118, Serum osmolality 261, urine osmolality > 200, urine sodium 44, in the setting of nausea/vomiting/diarrhea and recent increased hydrochlorothiazide.'
Please indicate in your progress notes if you are in agreement that the above diagnosis is valid for this patient:
____ - SIADH is a valid diagnosis (Please include it in your progress notes)
____ - SIADH is not a valid diagnosis for this patient
____ - SIADH is not yet confirmed but remains a suspected condition
____ - Other
____ - Unable to determine
Use of terms such as suspected, likely, concern for, or probable are acceptable for a diagnosis that is being evaluated, monitored or treated as if it exists and can be coded in the inpatient setting, when documented at the time of discharge.
Thank you,
Zaria Hancock RN, BSN
CDI Specialist
Available via [place] text
Please use your independent medical judgment in providing your response.
[2025-03-06 15:10] VITALS: BP 141/68
[2025-03-06] MEDS: NORVASC PO (15:27)
[2025-03-06 16:26] LABS: Glucose - Point of Care 222 mg/dl (70-99)
--- NOTE | 2025-03-06 16:27 | W.PN.NEPH.PH ---
Today's Communication / Plan
-
see plan
Assessment/Plan
-
84-year-old female with past medical history significant for hypertension, hyperlipidemia, pulmonary hypertension, HFpEF, hypothyroidism and IDDM who presented to [facility] ED for evaluation of generalized weakness. Patient reports that yesterday she
felt that she was unable to stand or ambulate without assistance from her spouse and did up sustaining two falls.
Renal consultation for hyponatremia of 115 overcorrected to 126
Impression.
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
Severe pulmonary hypertension
Chronic home oxygen 4 L. Stable
CHF
Hypertension
Heme positive stool
Plan
Hyponatremia-likely high ADH state from cardiac and pulm diease +labile BP trend
initial improvement with HTS and samsca upto 128
now decreasing trend to 123, repeat labs
if worsening likely do HTS again specially now that her cr is slightly up
spironolactone started on 03/04, check urine studies again
cotn lasix still and maintain FR 48ouncs/day
HTN-very labile, neg for MAURICIO. already on Aldactone
I do not think we will have perfect BPs for her
goal is to avoid hypotension and SBP>160
cont ACEI, BB, and clonidine, suggest prn clonidine if BP demands
she had edema with CCB hence is off
stay off HCTZ forever
follow LFTs
d/w pt and
-
-
Date of Service: March 06, 2025
CC / HPI / ROS
-
Chief Complaint:
HTN, hyponatremia
History of Present Illness:
Na low 123
BP still labile
Cr slightly up at 1.3
Review of Systems:
Nonoliguric
mental status baseline
No chest pain or shortness of breath
Labs
-
Labs:
WBC 6.2 10^3/uL (4.8-10.8) 03/06/25 06:26
RBC 3.29 10^6/uL (4.20-5.40) L 03/06/25 06:26
Hgb 10.4 g/dL (12.0-16.0) L 03/06/25 06:26
Hct 29.7 % (37.0-47.0) L 03/06/25 06:26
Plt Count 166 10^3/uL (130-400) 03/06/25 06:26
Sodium 123 mmol/L (135-145) L 03/06/25 06:26
Potassium 5.0 mmol/L (3.5-5.1) 03/06/25 06:26
Chloride 91 mmol/L (98-107) L 03/06/25 06:26
Carbon Dioxide 30 mmol/L (22-30) 03/06/25 06:26
BUN 49 mg/dl (7-17) H 03/06/25 06:26
Creatinine 1.3 mg/dL (0.6-1.0) H 03/06/25 06:26
eGFR 40.55 03/06/25 06:26
Glucose 84 mg/dl (70-99) 03/06/25 06:26
Calcium 9.0 mg/dl (8.4-10.2) 03/06/25 06:26
Hrk-M-Dpumpsaulmq Pept 854 pg/ml 02/26/25 19:31
Albumin 3.6 g/dl (3.5-5.0) 03/06/25 06:26
Physical Exam
-
Vital Signs:
Vital Signs
Temp Pulse Resp BP Pulse Ox
97.8 F 74 17 141/68 99
03/06/25 15:10 03/06/25 15:10 03/06/25 15:10 03/06/25 15:10 03/06/25 15:10
Cardiovascular:: Regular rate and rhythm
Respiratory:: Bilateral: CTA
Lung Excursion:: Normal
Abdomen:: Nontender and Soft
Bowel Sounds:: Normal
Extremity Edema:: None: Bilateral:
Justice Catheter: No
[2025-03-06] MEDS: ZESTRIL 40 MG PO (17:27)
[2025-03-06] MEDS: CRESTOR 20 MG PO (17:27)
[2025-03-06] MEDS: NOVOLOG FLEXPEN-LOW RESISTANCE 2 UNITS SC (17:31)
[2025-03-06 18:24] LABS: Blood Urea Nitrogen 48 mg/dl (7-17); Calcium 9.3 mg/dl (8.4-10.2); Carbon Dioxide 22 mmol/L (22-30); Chloride 93 mmol/L (98-107); Estimated Creatinine Clearance 39 ml/min; Glucose 185 mg/dl (70-99); Potassium 5.9 mmol/L (3.5-5.1); Sodium 124 mmol/L (135-145); eGFR 55.55
[2025-03-06] MEDS: COREG 25 MG PO (19:42)
[2025-03-06] MEDS: REMOVE LIDOCAINE PATCH 1 PATCH REMOVE (19:43)
[2025-03-06 21:51] LABS: Glucose - Point of Care 148 mg/dl (70-99)
--- NOTE | 2025-03-06 22:35 | W.PN.UPDATE ---
Update Note
Progress Note Update
Attending Addendum-
I saw and evaluated the patient. I reviewed the resident�s note and agree with findings and plan as documented in the resident�s note. Sub: feels fatigued and upset about sodium decrease. D/W with . No urinary sxs denies CP palps GOMEZ. Full 12
point ROS reviewed and negative except as documented Exam: Vitals reviewed in chart GEN-NAD heart RRR lungs clear abd soft LE no edema Neruo AAO x 3 MS 09/10
Plan:
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
- sodium lower today, new spironolactone contributing?
- s/p 3% and Samsca
- nephro on board
- decrease lasix
- fluid restrict 1200mls
- DC HCTZ
- repeat BMP in 6 hours and am check serum osm and urine osm/na, t/c salt tabs on dc, check cortisol in am
# Asymptomatic Bacteriuria- DC'd doxy, CTM for sxs
# Vasovagal syncope/hypotension-with defecation-resolved
# GI bleed- OP eval , resolved, GI input apprec, cbc in am
# Resistant hypertension
-BPs labile-continue on carvedilol, clonidine, lisinopril, amlodipine, clonidine, lasix dose decreased, spironolactone added per nephro-monitor potassium closely
-renal art Doppler-neg for MAURICIO
-apprec nephro input
# Hypothyroidism-Continue levothyroxine
# LYNETTE on CKD3a- from hypotension and lasix, repeat BMP
# Pulmonary hypertension/Chronic Hypoxemic Respiratory Failure- Continue sildenafil and selexipag, patient is on 4 L oxygen at home
# Rheumatoid arthritis--cont chronic prednisone
# Insulin-dependent diabetes mellitus
-home dose of Tresiba 10 units and N8 -> Lantus substituted will adjust dosage-apprec DM RADIOLOGY ASSISTANT assistance- cont SSI
# Bradycardia- chronic cont current meds including coreg
DVT proph--SC heparin
code status-- FULL CODE
Dispo- from home DC to SNF in am
Time spent coordinating care, review of plan of care with resident, personally reviewed records in EMR, med rec, consults, notes, labs, radiology, d/w nursing and � 50 mins
[2025-03-06 23:00] VITALS: BP 90/42
[2025-03-07] MEDS: REVATIO PO ×2 (00:19→15:52)
[2025-03-07] MEDS: HEPARIN 5000 UNITS SC ×2 (00:20→09:41)
[2025-03-07] MEDS: TYLENOL 650 MG PO (00:21)
[2025-03-07 05:51] LABS: Hematocrit 28.6 % (37.0-47.0); Hemoglobin 10.3 g/dL (12.0-16.0); Mean Corp Hgb Conc. 36.0 g/dL (33.0-37.0); Mean Corpuscular Volume 89.7 fL (81.0-99.0); Nucleated Red Blood Cells % 0 %; Platelet Count 167 10^3/uL (130-400); Red Cell Dist. Width 13.1 % (11.5-14.5)
[2025-03-07 06:00] VITALS: BMI 31.4
[2025-03-07] MEDS: SYNTHROID 200 MCG PO (06:00)
[2025-03-07 06:21] LABS: ALT (SGPT) 49 U/L (0-35); AST (SGOT) 42 U/L (14-36); Albumin 3.8 g/dl (3.5-5.0); Alkaline Phosphatase 31 U/L (38-126); Blood Urea Nitrogen 50 mg/dl (7-17); Calcium 9.2 mg/dl (8.4-10.2); Carbon Dioxide 29 mmol/L (22-30); Chloride 95 mmol/L (98-107); Estimated Creatinine Clearance 35 ml/min; Glucose 73 mg/dl (70-99); Potassium 5.0 mmol/L (3.5-5.1); Sodium 129 mmol/L (135-145); Total Protein 6.0 g/dl (6.3-8.2); eGFR 49.55
[2025-03-07 06:52] LABS: Cortisol, Random 6.5 ug/dl
[2025-03-07 07:00] VITALS: BP 143/64
[2025-03-07 07:40] LABS: Glucose - Point of Care 101 mg/dl (70-99)
[2025-03-07] MEDS: NOVOLOG FLEXPEN-LOW RESISTANCE SC (07:42)
--- NOTE | 2025-03-07 08:01 | PN.DE.MGMTRT ---
Insulin Management
- -
03/07/2025: Diabetes Management Follow up
84 year old female admitted with c/o weakness after fall x 2, found to be Hyponatremic, sodium 115.
PMH: HTN, Pulm HTN, HFpEF, HLD, Hypothyroidism, Interstitial lung disease, Rheumatoid arthritis and T2DM. Patient reports she had no LOC with falls, had episode of N/V/D on Tuesday lasting about 24 hours. No recurrent GI symptoms since that time.
Patient has had issues recently with poorly controlled hypertension, she sees Nephrology for HTN mgt and has had several med changes of late including increases in clonidine, HCTZ and carvedilol. Prior to admission was taking Tresiba 10 units in AM,
NovoLog 10 units @breakfast, 6-8 units @lunch and 8-10 units @dinner. A1C 6.7%, Cr 1.0-->1.3, eGFR 40.55 today.
Patient awake, alert, oriented, offers no complaints, able to discuss diabetes hx and care plan. at bedside, very supportive.
Patient states she sees Agus Briceno at [place] for ongoing diabetes care. Uses CGM- Carissa 3 for glucose monitoring. She does not adhere to a diabetic diet.
03/06 Fasting glucose 114. Pre meal glucose yesterday 114 to 262, received 8 units novolog with breakfast and 9 units with lunch and dinner.
03/07 Fasting glucose 101. Will increase AC NovoLog from 8 units with breakfast to 10 with all meals and low corrective insulin. Will continue Lantus 10 units in AM.
Patient may resume her home dose of Tresiba 10 units, and NovoLog 8 units AC at discharge
Discussed with Nurse. Will cont to follow.
Diabetes History
- -
Type of Diabetes: 2 requiring insulin
Pre-Admission Diabetes Regimen
03/06/25 03/07/25
18:01 05:37
Creatinine 1.0 1.1 H
Lab Results
Hemoglobin A1c 6.7 % (4.0-5.6) H 10/22/25 05:14
Insulin Pump Settings
IP Diabetes Regimen
03/06/25 03/06/25 03/06/25
11:31 16:23 18:01
Glucose 185 H
POC Glucose 262 H 222 H
03/06/25 03/07/25 03/07/25
21:48 05:37 07:39
Glucose 73
POC Glucose 148 H 101 H
Meal type: Lunch
Meal type: Breakfast
Amount consumed: 100%
Amount consumed: 100%
Patient Education
--- NOTE | 2025-03-07 08:02 | W.PN.HOSP.TC ---
Addendum entered and electronically signed by Willie Fischer MD 03/07/25 22:21:
Attending Addendum-
I saw and evaluated the patient. I reviewed the resident�s note and agree with findings and plan as documented in the resident�s note. Sub: feels greatly improved today. No urinary sxs denies CP palps GOMEZ. Full 12 point ROS reviewed and negative
except as documented Exam: Vitals reviewed in chart GEN-NAD heart RRR lungs clear abd soft LE no edema Neuro AAO x 3 MS 09/10
Plan:
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
- sodium improved
- s/p 3% and Samsca
- nephro on board
- increase lasix on DC
- fluid restrict 1200mls
- DC HCTZ
- DC spironolactone
# Asymptomatic Bacteriuria- DC'd doxy
# Vasovagal syncope/hypotension-with defecation-resolved
# GI bleed- OP eval , resolved, GI input apprec
# Resistant hypertension
-BPs labile-continue on carvedilol, clonidine, lisinopril, amlodipine, clonidine, lasix dose increased on DC, DC spironolactone
-renal art Doppler-neg for MAURICIO
-apprec nephro input
-add prn clonidine
# Hypothyroidism-Continue levothyroxine
# LYNETTE on CKD3a- from hypotension and lasix, repeat BMP- resolved
# Pulmonary hypertension/Chronic Hypoxemic Respiratory Failure- Continue sildenafil and selexipag, patient is on 4 L oxygen at home
# Rheumatoid arthritis--cont chronic prednisone
# Insulin-dependent diabetes mellitus
-cont home dose of Tresiba 10 units and N8 on DC
# Bradycardia- chronic cont current meds including coreg
DVT proph--SC heparin
code status-- FULL CODE
Dispo- from home DC to
Time spent coordinating care, DC planning, review of DC plan of care with resident, transition of care, review of records, med rec/scripts sent electronically, consults, notes, d/w consultants, nursing, family, admitting physician at [facility], and CM� 31
mins >50% of this time was devoted to counseling and coordination of care
Original Note:
Today's Communication/Plan
-
Sodium increased to 129. Hypertonic saline not needed yesterday.
Discharged today: Added 0.1 mg clonidine as needed for blood pressure greater than 160, discontinuing spironolactone, resuming potassium supplement, reduced amlodipine to 5 mg as patient refuses amlodipine frequently due to previous pedal edema
Assessment / Plan
Assessment / Plan
Impression
84-year-old female with PMH notable for HTN, pulmonary HTN, HLD, HFpEF, hypothyroidism and IDDM who presented to [facility] ED for evaluation of weakness contributing to 2 falls and hitting her head as well as N/V/D for 1 day. She was found to have
severe hyponatremia with a sodium of 118.
Patient was unable to stand or ambulate without assistance from her spouse and sustained 2 falls 1 day before admission.
She follows with nephrology and had several med changes recently before admission including increases in clonidine, HCTZ and carvedilol.
Transferred out of IMU to [facility] 03/04/2025.
For hyponatremia, she was put on a fluid restriction, hypertonic saline was started, and her home antihypertensives were held. Sodium was corrected faster than the goal rate. Nephrology was consulted and administered Samsca 1 dose. She grew
hypertensive, so she was given normal saline IV bolus. After her hypotension resolved, fluid restriction was resumed.
Plan
Acute hypertonic, hypovolemic, severe hyponatremia (admitting diagnosis)
On admission: Na 118, Serum osmolality 261, urine osmolality > 200, urine sodium 44, in the setting of nausea/vomiting/diarrhea and recent increased hydrochlorothiazide.
- Review of systems negative for fever chills nausea vomiting headache abdominal pain lethargy lightheadedness dizziness syncope.
- Discontinue hydrochlorothiazide
- Trend CMP for Na (baseline 138) and creatinine (baseline 1.0, for dehydration on lasix)
Sodium 126-128 03/01/2025 to 03/05/25.
- Continue fluid restriction; 48 ounces per day
- Furosemide 80 mg PO daily decreased to 40 mg PO daily
Sodium decreased to 123 03/06/2025
� Considering sodium tablets 1g BID, hypertonic saline again.
� Sodium 124 later on 03/06/2025, 129 on 03/07/2020
� AM cortisol 6.5 on 03/07/2025 (the lab's normal ranges 4.5-22.7; other sources recommend 10-20)
� Serum osmolality 283 isotonic, urine osmolality and urine sodium pending
Hypertension and labile blood pressure:
� Goals: Avoid hypotension and SBP over 160
- continue lisinopril 40 mg at night (renal recc this change to reduce pill burden in AM),
- Continue home carvedilol 25 mg p.o. twice daily
- added amlodipine 10 mg p.o. daily. Patient reported edema, salesforce developer suggested discontinuing
- Clonidine dose halved to 0.1 mg tid, due to her episodes of hypotension
- hydralazine 10 mg TID IV every 6 as needed. Patient claims that hydralazine makes her dizzy and hallucinate
- spironolactone 25 mg PO daily started 03/04/25, held 03/06/2025 after potassium increased gradually
- sildenafil 20 mg PO TID at MN, 8 am and 4 pm
� Furosemide 40 mg PO daily
- Renal ultrasound: Examination slightly limited by overlying bowel gas. No flow-limiting renal artery stenosis identified sonographically
- Orthostatic vitals: Not orthostatic
�03/05/2029: Blood pressure started dropping again. Alternated between 90s and 140s to 170s: 90 this morning, 140s yesterday afternoon and evening, 90s yesterday morning, 170s 2 days ago evening, 90s 2 days ago afternoon
� At discharge: Added clonidine 0.1 mg as needed for SBP greater than 160, discontinued spironolactone, continued potassium supplement, reduce amlodipine dose from 10 to 5 mg as patient has been refusing amlodipine due to prior pedal edema
Asymptomatic bacteriuria
- Urine culture positive for Enterobacter cloacae, changed ceftriaxone iv to doxycycline Po based on sensitivities. Doxycycline discontinued 03/05/25 due to patient denying dysruai since admission
Vasovagal syncope 03/03/25:
-Likely due to increased intra-abdominal pressure from straining
- Patient's blood pressure was 182/66 mmHg when I was in the room, received [place] text from nurse approximately 30 minutes later stating that patient's vitals dropped down to 80/40 mmHg after she had defecated. Approximately 5 minutes after
defecating her blood pressure went back up to 162/ 80 mmHg
- Monitor orthostatics
- stool softeners to avoid straining
- PT/OT eval for orthostatic positive vitals
- Clonidine dose changed to 0.1 tid, due to her episodes of hypotension
Hemoccult positive stool:
BP has been hypertensive, then dropped to 80/40 during large BM. Stool brown heme positive. Hgb 11.4--->10.6. Has had multiple colonoscopies with Dr Pedraza in the past. Reports loose stool/occ incontinence. Denies heartburn or UGI c/o
- According to nurse the color of the stool was brown, not black, no visible blood
- Trend H&H to look for an acute bleed transfuse, transfuse hemoglobin if less than 7
- BUN is increased and this could coincide with a upper GI bleed
- IV PPI
GI recommended outpatient follow up due to no symptoms of acute bleed. Signed off
Asymptomatic bradycardia:
heart rate drops to 53-55 bpm. No lightheadedness, dizziness, syncope, shortness of breath, palpitations
Initial EKG showed sinus rhythm with first-degree AV block
- Coreg (25 mg p.o. twice daily) parameters: Hold if SBP less than 100, DBP less than 60, HR less than 60
Hematoma of occipital region due to fall:
- Patient's blood thinner is being held, currently on heparin drip
- Acetaminophen 650 as needed
- Fall precautions
Anemia
Hemoglobin 12.3 on admission
Downtrended to hemoglobin 10.5
Acute unresponsiveness due to unknown etiology (resolved on 03/01/2025):
- non responsive, non verbal, and not following commands.
- Physical examination shows patient alert but not oriented to place or time
- CT Head shows no intracranial abnormalities
- VBG normal so no acid base disorder.
- Nephrology gave small fluid bolus
- Transferred to IMU, neuro checks q4, checked labs in AM
Hypothyroidism:
- Continue levothyroxine 125 mcg
Pulmonary hypertension:
- Continue sildenafil. On 4L O2 at home. CPAP qHS
Insulin-dependent diabetes mellitus:
- Glucose is 138 well-controlled. Consulted diabetes nurse practitioner. Increased AC NovoLog to 8 units. Cont Lantus 10 units in AM and Low corrective insulin.
Rheumatoid arthritis:
- Continue prednisone and watch for stress dose steroid needs
DVT prophylaxis: Heparin
Full code
Dispo: [facility]
Anticipated Discharge: Today
Subjective/Interval History
-
Date of Service: March 07, 2025
No acute events overnight. Patient had no complaints this morning.
Objective Data
-
Labs:
Laboratory Results
03/07/25
05:37
WBC 6.1
Hgb 10.3 L
Hct 28.6 L
Plt Count 167
Sodium 129 L
Potassium 5.0
Chloride 95 L
Carbon Dioxide 29
BUN 50 H
Creatinine 1.1 H
Glucose 73
Calcium 9.2
Total Bilirubin 0.4
AST 42 H
ALT 49 H
Alkaline Phosphatase 31 L
Vital Signs:
Vital Signs
Temp Pulse Resp BP Pulse Ox
97.7 F 66 16 90/42 100
03/06/25 23:00 03/06/25 23:00 03/06/25 23:00 03/06/25 23:00 03/06/25 23:00
Blood pressure alternates between 90s and 140s to 170s: 90 this morning, 140s yesterday afternoon and evening, 90s yesterday morning, 170s 2 days ago evening, 90s 2 days ago afternoon
3L O2 NC
I&O
03/06/25 03/07/25 03/08/25
06:59 06:59 06:59
Intake Total 840 / 840 660 / 660
Output Total 300 / 300
Balance 840 / 840 360 / 360
Review of Systems
-
History Source: Patient
All other systems: Reviewed and negative
Physical Exam
-
General: Well Developed, Well Nourished, No Apparent Distress, Comfortable and Conversant
HEENT: Normocephalic, Atraumatic, Anicteric, Nose Appears Normal and Ears Appear Normal
Respiratory: Clear to Auscultation
Cardiac: Regular Rhythm and S1/S2
GI: Soft, Nontender, Nondistended and Normal Bowel Sounds
Musculoskeletal: No Clubbing, No Cyanosis and No Edema
Skin: Warm and Dry
Neuro: Awake and Alert
Psych: Calm
[2025-03-07 08:17] VITALS: BP 143/64; BP 155/54; PULSE 71; PULSE 76; PULSE 78
[2025-03-07] MEDS: PROTONIX 40 MG PO (09:33)
[2025-03-07] MEDS: DELTASONE 7.5 MG PO (09:34)
[2025-03-07] MEDS: LASIX 40 MG PO (09:39)
[2025-03-07] MEDS: THERAGRAN 1 TABLET PO (09:39)
[2025-03-07] MEDS: COREG 25 MG PO (09:40)
[2025-03-07] MEDS: VITAMIN D3 (cholecalciferol) 50 MCG PO (09:40)
[2025-03-07] MEDS: CATAPRES 0.1 MG PO (09:42)
[2025-03-07] MEDS: LANTUS 0.1 UNITS SC (09:44)
[2025-03-07] MEDS: LIDOCAINE 4% PATCH 1 PATCH TOPICAL (09:45)
[2025-03-07] MEDS: METAMUCIL, KONSYL 1 PACKET PO (09:45)
[2025-03-07] MEDS: REVATIO 20 MG PO (09:48)
[2025-03-07] MEDS: NOVOLOG FLEXPEN SC (10:33)
[2025-03-07] MEDS: NOVOLOG FLEXPEN 10 UNITS SC ×2 (10:41→12:31)
[2025-03-07 11:55] LABS: Glucose - Point of Care 189 mg/dl (70-99)
--- NOTE | 2025-03-07 12:11 | W.PN.NEPH.PH ---
Today's Communication / Plan
-
see plan
Assessment/Plan
-
84-year-old female with past medical history significant for hypertension, hyperlipidemia, pulmonary hypertension, HFpEF, hypothyroidism and IDDM who presented to [facility] ED for evaluation of generalized weakness. Patient reports that yesterday she
felt that she was unable to stand or ambulate without assistance from her spouse and did up sustaining two falls.
Renal consultation for hyponatremia of 115 overcorrected to 126
Impression.
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
Severe pulmonary hypertension
Chronic home oxygen 4 L. Stable
CHF
Hypertension
Heme positive stool
Plan
Hyponatremia-likely high ADH state from cardiac and pulm diease +labile BP trend
initial improvement with HTS and samsca
sodium now upto 129 posta extra lasix last night
spironolactone started on 03/04,but now held for hyperkalemia
would increase lasix to 40mg BID, and maintain FR 48ouncs/day
HTN-very labile, neg for MAURICIO. holding Aldactone
I do not think we will have perfect BPs for her
goal is to avoid hypotension and SBP>160
cont ACEI, BB, and clonidine, suggest prn clonidine if BP demands
she had edema with CCB hence is off
stay off HCTZ forever
follow LFTs
d/w pt and
will need BMP in 2-3days
f/u Dr Glover
d/w primary
-
-
Date of Service: March 07, 2025
CC / HPI / ROS
-
Chief Complaint:
HTN, hyponatremia
History of Present Illness:
Na better at 129
BP still labile
Cr slightly up at 1.3, better at 1.1
Review of Systems:
Nonoliguric
mental status baseline
No chest pain or shortness of breath
Labs
-
Labs:
WBC 6.1 10^3/uL (4.8-10.8) 03/07/25 05:37
RBC 3.19 10^6/uL (4.20-5.40) L 03/07/25 05:37
Hgb 10.3 g/dL (12.0-16.0) L 03/07/25 05:37
Hct 28.6 % (37.0-47.0) L 03/07/25 05:37
Plt Count 167 10^3/uL (130-400) 03/07/25 05:37
Sodium 129 mmol/L (135-145) L 03/07/25 05:37
Potassium 5.0 mmol/L (3.5-5.1) 03/07/25 05:37
Chloride 95 mmol/L (98-107) L 03/07/25 05:37
Carbon Dioxide 29 mmol/L (22-30) 03/07/25 05:37
BUN 50 mg/dl (7-17) H 03/07/25 05:37
Creatinine 1.1 mg/dL (0.6-1.0) H 03/07/25 05:37
eGFR 49.55 03/07/25 05:37
Glucose 73 mg/dl (70-99) 03/07/25 05:37
Calcium 9.2 mg/dl (8.4-10.2) 03/07/25 05:37
Iaq-X-Crtlequhbhq Pept 854 pg/ml 02/26/25 19:31
Albumin 3.8 g/dl (3.5-5.0) 03/07/25 05:37
Physical Exam
-
Vital Signs:
Vital Signs
Temp Pulse Resp BP Pulse Ox
97.7 F 94 16 143/64 94
03/07/25 07:00 03/07/25 07:00 03/06/25 23:00 03/07/25 07:00 03/07/25 07:00
Cardiovascular:: Regular rate and rhythm
Respiratory:: Bilateral: CTA
Lung Excursion:: Normal
Abdomen:: Nontender and Soft
Bowel Sounds:: Normal
Extremity Edema:: None: Bilateral:
Justice Catheter: No
[2025-03-07] MEDS: NOVOLOG FLEXPEN-LOW RESISTANCE 1 UNITS SC (12:32)
--- NOTE | 2025-03-07 12:32 | W.DCSUMMARY ---
Addendum entered and electronically signed by Willie Fischer MD 03/07/25 22:23:
Read, reviewed, and agree. See same day progress note for additional details.
Philippe Fischer MD
Original Note:
Documented by User: Katerina Maldonado MD, Resident 03/07/25 13:00
Discharge Summary
Discharge Data
Date of Admission: 02/26/25
Date of Discharge: 03/07/25
Total time spent discharging patient (in min): 65
-
Pending Results: No
Hospital Course
Impression
84-year-old female with PMH notable for HTN, pulmonary HTN, HLD, HFpEF, hypothyroidism and IDDM who presented to [facility] ED for evaluation of weakness contributing to 2 falls and hitting her head as well as N/V/D for 1 day. She was found to have
severe hyponatremia with a sodium of 118.
Patient was unable to stand or ambulate without assistance from her spouse and sustained 2 falls 1 day before admission. She follows with nephrology and had several med changes recently before admission including increases in clonidine, HCTZ and
carvedilol.
Transferred out of IMU to [facility] 03/04/2025.
For hyponatremia, she was put on a fluid restriction, hypertonic saline was started, and her home antihypertensives were held. Sodium was corrected faster than the goal rate. Nephrology was consulted and administered Samsca 1 dose. She grew
hypertensive, so she was given normal saline IV bolus. After her hypotension resolved, fluid restriction was resumed. Her sodium increased to 126 and remained therefore about 4 days. Then her sodium dropped to 123 but increased to 129 on day of
discharge (without hypertonic saline).
For hypertension and labile blood pressures, her antihypertensive regimen was modified continuously. Her blood pressures alternated between 140s to 170s and 90s. Nephrology recommended that the goal be to avoid hypotension and SBP greater than
160, rather than strict normotension. Renal ultrasound was negative for renal artery stenosis. She was discharged on the following antihypertensive regimen:
� Carvedilol 25 mg twice daily
� Lisinopril 40 mg p.o. daily
� Furosemide 40 mg p.o. twice daily. Modified from 80 mg daily
� Clonidine 0.1 mg 3 times daily at 8 AM, 4 PM and midnight. Decreased from 0.2 mg twice daily
� Amlodipine 5 mg daily. She frequently refused amlodipine due to prior pedal edema, similar to pain was decreased from 10 mg, which was started new during this hospitalization
Renal artery duplex: Examination slightly limited by overlying bowel gas. No flow-limiting renal artery stenosis identified sonographically.
CT head noncontrast 02/28/2025 for AMS: No acute intracranial abnormality noted
Chest x-ray:
1. Mild to moderate cardiomegaly.
2. Severe calcific atherosclerotic plaque in the coronary arteries.
3. Mild to moderate elevation of the right hemidiaphragm.
4. Multiple bands of opacity in the right middle lobe and lingula which are probably subsegmental atelectasis and scarring. If there are signs/symptoms of pulmonary infection, pneumonia is an alternative diagnostic possibility.
5. Severe multilevel thoracic discogenic degenerative disease.
6. Chronic full-thickness bilateral rotator cuff tears.
Chest x-ray CT head noncontrast 02/26/2025 on admission
1. 2.0 cm ACUTE SCALP SOFT TISSUE HEMATOMA in the midline posterior to the parietal bones.
2. No CT evidence for acute intracranial hemorrhage.
3. SEVERE WHITE MATTER LEUKOARAIOSIS in both cerebral hemispheres.
4. 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
5. Moderate vertebrobasilar dolichoectasia.
6. VERY SEVERE BILATERAL MAXILLARY and RIGHT SPHENOID SINUSITIS.
CT cervical spine
1. Severe 6 mm anterolisthesis of C3 on C4.
2. Severe right-sided facet joint arthrosis at C3/C4 and C4/C5.
3. Severe discogenic degenerative disease at C3/C4 through C7/T1.
4. Mild multilevel spinal cord compression and central canal stenosis.
5. Severe bilateral neural foraminal narrowing at C3/C4.
6. Severe right neural foraminal narrowing at C4/C5.
7. Severe left neural foraminal narrowing at C5/C6.
8. 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
Primary diagnosis:
Severe hypovolemic, hypotonic hyponatremia
Secondary diagnoses:
Hypertensive urgency
Altered mental status
Hematoma posterior scalp
Asymptomatic bradycardia
Hemoccult occult positive stool
Vasovagal syncope
Asymptomatic bacteriuria
Hypothyroidism
Pulmonary hypertension
Insulin-dependent diabetes
Rheumatoid arthritis
Acute hypertonic, hypovolemic, severe hyponatremia (admitting diagnosis)
On admission: Na 118, Serum osmolality 261, urine osmolality > 200, urine sodium 44, in the setting of nausea/vomiting/diarrhea and recent increased hydrochlorothiazide.
- Review of systems negative for fever chills nausea vomiting headache abdominal pain lethargy lightheadedness dizziness syncope.
- Discontinue hydrochlorothiazide
- Trend CMP for Na (baseline 138) and creatinine (baseline 1.0, for dehydration on lasix)
Sodium 126-128 03/01/2025 to 03/05/25.
- Continue fluid restriction; 48 ounces per day
- Furosemide 80 mg PO daily decreased to 40 mg PO daily
Sodium decreased to 123 03/06/2025
� Considering sodium tablets 1g BID, hypertonic saline again.
� Sodium 124 later on 03/06/2025, 129 on 03/07/2020
� AM cortisol 6.5 on 03/07/2025 (the lab's normal ranges 4.5-22.7; other sources recommend 10-20)
� 03/07/2025: Serum osmolality 283 isotonic, urine osmolality and urine sodium not collected
Hypertension and labile blood pressure:
� Goals: Avoid hypotension and SBP over 160
- continue lisinopril 40 mg at night (renal recc this change to reduce pill burden in AM),
- Continue home carvedilol 25 mg p.o. twice daily
- added amlodipine 10 mg p.o. daily. Patient reported edema, repair specialist suggested discontinuing
- Clonidine dose halved to 0.1 mg tid, due to her episodes of hypotension
- hydralazine 10 mg TID IV every 6 as needed. Patient claims that hydralazine makes her dizzy and hallucinate
- spironolactone 25 mg PO daily started 03/04/25, held 03/06/2025 after potassium increased gradually
- sildenafil 20 mg PO TID at MN, 8 am and 4 pm
� Furosemide 40 mg PO daily
- Renal ultrasound: Examination slightly limited by overlying bowel gas. No flow-limiting renal artery stenosis identified sonographically
- Orthostatic vitals: Not orthostatic
�03/05/2029: Blood pressure started dropping again. Alternated between 90s and 140s to 170s: 90 this morning, 140s yesterday afternoon and evening, 90s yesterday morning, 170s 2 days ago evening, 90s 2 days ago afternoon
� At discharge: Added clonidine 0.1 mg as needed for SBP greater than 160, discontinued spironolactone, continued potassium supplement, reduce amlodipine dose from 10 to 5 mg as patient has been refusing amlodipine due to prior pedal edema
Asymptomatic bacteriuria
- Urine culture positive for Enterobacter cloacae, changed ceftriaxone iv to doxycycline Po based on sensitivities. Doxycycline discontinued 03/05/25 due to patient denying dysruai since admission
Vasovagal syncope 03/03/25:
-Likely due to increased intra-abdominal pressure from straining
- Patient's blood pressure was 182/66 mmHg when I was in the room, received [place] text from nurse approximately 30 minutes later stating that patient's vitals dropped down to 80/40 mmHg after she had defecated. Approximately 5 minutes after
defecating her blood pressure went back up to 162/ 80 mmHg
- Monitor orthostatics
- stool softeners to avoid straining
- PT/OT eval for orthostatic positive vitals
- Clonidine dose changed to 0.1 tid, due to her episodes of hypotension
Hemoccult positive stool:
BP has been hypertensive, then dropped to 80/40 during large BM. Stool brown heme positive. Hgb 11.4--->10.6. Has had multiple colonoscopies with Dr Pedraza in the past. Reports loose stool/occ incontinence. Denies heartburn or UGI c/o
- According to nurse the color of the stool was brown, not black, no visible blood
- Trend H&H to look for an acute bleed transfuse, transfuse hemoglobin if less than 7
- BUN is increased and this could coincide with a upper GI bleed
- IV PPI
GI recommended outpatient follow up due to no symptoms of acute bleed. Signed off
Asymptomatic bradycardia:
heart rate drops to 53-55 bpm. No lightheadedness, dizziness, syncope, shortness of breath, palpitations
Initial EKG showed sinus rhythm with first-degree AV block
- Coreg (25 mg p.o. twice daily) parameters: Hold if SBP less than 100, DBP less than 60, HR less than 60
Hematoma of occipital region due to fall:
- Patient's blood thinner is being held, currently on heparin drip
- Acetaminophen 650 as needed
- Fall precautions
Acute unresponsiveness due to unknown etiology (resolved on 03/01/2025):
- non responsive, non verbal, and not following commands.
- Physical examination shows patient alert but not oriented to place or time
- CT Head shows no intracranial abnormalities
- VBG normal so no acid base disorder.
- Nephrology gave small fluid bolus
- Transferred to IMU, neuro checks q4, checked labs in AM
Discharge Plan
-
Patient Disposition: Care Home/SNF
Discharge Diagnosis/Procedures: Primary diagnosis:
Severe hyponatremia
Secondary diagnosis:
HFpEF
Hypertension
Pulmonary hypertension
Hypothyroidism
Insulin-dependent diabetes mellitus
Hyperlipidemia
Condition: Fair
Diet: Low Cholesterol, Low Sodium, Diabetic, Carb Controlled and Restrict fluids to 48 oz
Activity: With assistance
Driving Restrictions: No driving
Bathing Restrictions: None
Referrals:
Saulo Calzada MD [Active, Gastroenterology]
Bharat Walton MD [Family Provider, Internal Medicine]
Additional Discharge Medication Instructions: For your low sodium level, please only drink 48 ounces (6 cups) of fluids per day and follow up your electrolyte levels with your PCP.
For elevated pressure, please take furosemide 40 mg daily, clonidine 0.1 mg 3 times a day, lisinopril 40 mg daily, amlodipine 10 mg daily, carvedilol 25 mg twice a day, and sildenafil 20 mg 3 times a day at morning, 4 PM, and midnight. An extra
clonidine 0.1 mg may also be taken when SPB > 160 (PRN). Please follow-up with your PCP for antihypertensive regimen modification and further investigation of refractory hypertension if needed (renal artery stenosis not demonstrated on renal
ultrasound). Please follow-up with your primary care doctor for this hospital stay.
�Please do not take hydrochlorothiazide in the future.
Please follow-up with [employer] Dr. Saulo Calzada for your positive blood stool test.
Prescriptions:
New
sildenafil (pulm.hypertension) 20 mg Tablet
20 mg PO TID@0000,0800,1600 Qty: 90 0RF
insulin aspart U-100 [Novolog FlexPen U-100 Insulin] 100 unit/mL (3 mL) insulin pen
8 unit SC AC 30 Days Qty: 7.2 0RF
amlodipine 5 mg tablet
5 mg PO DAILY Qty: 30 0RF
clonidine HCl 0.1 mg tablet
0.1 mg PO HS PRN (Reason: SBP>160) Qty: 30 0RF
clonidine HCl 0.1 mg tablet
0.1 mg PO TID Qty: 90 0RF
furosemide [Lasix] 40 mg tablet
40 mg PO BID Qty: 60 0RF
Continued
carvedilol 25 mg Tablet
25 mg PO BID
potassium chloride 10 mEq Capsule, Extended Release
20 meq PO NOON
psyllium Packet
1 packet PO DAILY
prednisone 5 mg Tablet
7.5 mg PO DAILY
levothyroxine 200 mcg Tablet
200 mcg PO DAILY
hydroxychloroquine 200 mg Tablet
400 mg PO NOON
lisinopril 40 mg Tablet
40 mg PO DAILY
rosuvastatin 20 mg Tablet
20 mg PO QPM
cholecalciferol (vitamin D3) [Vitamin D3] 50 mcg (2,000 unit) Tablet
50 mcg PO DAILY
Centrum Silver Women 8 mg iron-400 mcg-50 mcg Tablet
1 tab PO DAILY
Actemra 162 mg/0.9 mL Syringe
162 mg SC QWEEK
Uptravi 1,000 mcg Tablet
1,000 mcg PO BID
insulin degludec [Tresiba U-100 Insulin] 100 unit/mL Solution
10 unit SC DAILY
Discontinued
insulin aspart U-100 [Novolog FlexPen U-100 Insulin] 100 unit/mL (3 mL) Insulin Pen
12 unit SC QACBREAK
insulin aspart U-100 [Novolog FlexPen U-100 Insulin] 100 unit/mL (3 mL) Insulin Pen
6 - 8 unit SC QACLUNCH
furosemide 40 mg Tablet
80 mg PO NOON
clonidine HCl 0.2 mg Tablet
0.2 mg PO TID
hydrochlorothiazide 25 mg Tablet
25 mg PO DAILY
sildenafil (pulm.hypertension) 20 mg Tablet
20 mg PO TID
insulin aspart U-100 [Novolog FlexPen U-100 Insulin] 100 unit/mL (3 mL) Insulin Pen
8 - 10 unit SC QACDINNER
Discharge Orders:
Discharge Patient (As Directed); Ordered 03/07/25
Ordered By: Katerina Maldonado
Discharge Date and Time
Discharge Date/Time: 03/07/25 16:51
Print Language: CAPE VERDEAN

Documented by User: Willie Fischer MD 03/07/25 22:18
Discharge Summary
Discharge Data
Date of Admission: 02/26/25
Date of Discharge: 03/07/25
Discharge Plan
-
Patient Disposition: Care Home/SNF
Discharge Diagnosis/Procedures: Primary diagnosis:
Severe hyponatremia
Secondary diagnosis:
HFpEF
Hypertension
Pulmonary hypertension
Hypothyroidism
Insulin-dependent diabetes mellitus
Hyperlipidemia
Condition: Fair
Diet: Low Cholesterol, Low Sodium, Diabetic, Carb Controlled and Restrict fluids to 48 oz
Activity: With assistance
Driving Restrictions: No driving
Bathing Restrictions: None
Referrals:
Saulo Calzada MD [Active, Gastroenterology]
Bharat Walton MD [Family Provider, Internal Medicine]
Additional Discharge Medication Instructions: For your low sodium level, please only drink 48 ounces (6 cups) of fluids per day and follow up your electrolyte levels with your PCP.
For elevated pressure, please take furosemide 40 mg daily, clonidine 0.1 mg 3 times a day, lisinopril 40 mg daily, amlodipine 10 mg daily, carvedilol 25 mg twice a day, and sildenafil 20 mg 3 times a day at morning, 4 PM, and midnight. An extra
clonidine 0.1 mg may also be taken when SPB > 160 (PRN). Please follow-up with your PCP for antihypertensive regimen modification and further investigation of refractory hypertension if needed (renal artery stenosis not demonstrated on renal
ultrasound). Please follow-up with your primary care doctor for this hospital stay.
�Please do not take hydrochlorothiazide in the future.
Please follow-up with [employer] Dr. Saulo Calzada for your positive blood stool test.
Prescriptions:
New
sildenafil (pulm.hypertension) 20 mg Tablet
20 mg PO TID@0000,0800,1600 Qty: 90 0RF
insulin aspart U-100 [Novolog FlexPen U-100 Insulin] 100 unit/mL (3 mL) insulin pen
8 unit SC AC 30 Days Qty: 7.2 0RF
amlodipine 5 mg tablet
5 mg PO DAILY Qty: 30 0RF
clonidine HCl 0.1 mg tablet
0.1 mg PO HS PRN (Reason: SBP>160) Qty: 30 0RF
clonidine HCl 0.1 mg tablet
0.1 mg PO TID Qty: 90 0RF
furosemide [Lasix] 40 mg tablet
40 mg PO BID Qty: 60 0RF
Continued
carvedilol 25 mg Tablet
25 mg PO BID
potassium chloride 10 mEq Capsule, Extended Release
20 meq PO NOON
psyllium Packet
1 packet PO DAILY
prednisone 5 mg Tablet
7.5 mg PO DAILY
levothyroxine 200 mcg Tablet
200 mcg PO DAILY
hydroxychloroquine 200 mg Tablet
400 mg PO NOON
lisinopril 40 mg Tablet
40 mg PO DAILY
rosuvastatin 20 mg Tablet
20 mg PO QPM
cholecalciferol (vitamin D3) [Vitamin D3] 50 mcg (2,000 unit) Tablet
50 mcg PO DAILY
Centrum Silver Women 8 mg iron-400 mcg-50 mcg Tablet
1 tab PO DAILY
Actemra 162 mg/0.9 mL Syringe
162 mg SC QWEEK
Uptravi 1,000 mcg Tablet
1,000 mcg PO BID
insulin degludec [Tresiba U-100 Insulin] 100 unit/mL Solution
10 unit SC DAILY
Discontinued
insulin aspart U-100 [Novolog FlexPen U-100 Insulin] 100 unit/mL (3 mL) Insulin Pen
12 unit SC QACBREAK
insulin aspart U-100 [Novolog FlexPen U-100 Insulin] 100 unit/mL (3 mL) Insulin Pen
6 - 8 unit SC QACLUNCH
furosemide 40 mg Tablet
80 mg PO NOON
clonidine HCl 0.2 mg Tablet
0.2 mg PO TID
hydrochlorothiazide 25 mg Tablet
25 mg PO DAILY
sildenafil (pulm.hypertension) 20 mg Tablet
20 mg PO TID
insulin aspart U-100 [Novolog FlexPen U-100 Insulin] 100 unit/mL (3 mL) Insulin Pen
8 - 10 unit SC QACDINNER
Discharge Orders:
Discharge Patient (As Directed); Ordered 03/07/25
Ordered By: Katerina Maldonado
Discharge Date and Time
Discharge Date/Time: 03/07/25 16:51
Print Language: CAPE VERDEAN
[2025-03-07] MEDS: PLAQUENIL 400 MG PO (12:44)
[2025-03-07] MEDS: NON-FORMULARY ITEM 1000 MCG PO (12:45)
--- NOTE | 2025-03-07 12:50 | CM ---
SNF auth was approved by [employer] at [id number]
Auth approval # [id number] for [facility]
start date 03/06, 6 days, NRD 03/11
Ambulance transport arranged for discharge to [facility].
[facility] Report: [phone]
[facility]
[2025-03-07 15:11] VITALS: BP 107/54
[2025-03-07] MEDS: NORVASC PO (15:15)
[2025-03-07] MEDS: CATAPRES PO (15:49)
[2025-03-07] MEDS: HEPARIN SC (15:49)
--- NOTE | 2025-03-07 16:00 | PTCARENOTE ---
Patient's blood pressure noted to be 107/54. HR: 72 - Clonidine, Lasix, and Revatio all ordered to be held by MD due to hypotension.
== END 2025-03-07 16:51 | DRG 644 ==
LOC: 3 WEST ACU 21:19
PROVIDERS: Internal Medicine; Nurse Practitioner Family; Physician Assistant; Specialist; Student in an Organized Health Care Education/Training Program; ADMITTING PHYSICIAN Hospitalist; ATTENDING PHYSICIAN Family Medicine; CONSULT PHYSICIAN Specialist; EMERGENCY PHYSICIAN Emergency Medicine; FAMILY PHYSICIAN Internal Medicine; OTHER PHYSICIAN Internal Medicine Nephrology
PROC: 5A09357 Assistance with Respiratory Ventilation, Less than 24 Consecutive Hours, Continuous Positive Airway Pressure (ICD-10-PCS; 2025-02-27)
DX: E22.2 Syndrome of inappropriate secretion of antidiuretic hormone (principal); I13.0 Hypertensive heart and chronic kidney disease with heart failure and stage 1 through stage 4 chronic kidney disease, or unspecified chronic kidney disease; I50.32 Chronic diastolic (congestive) heart failure; K92.2 Gastrointestinal hemorrhage, unspecified; N17.9 Acute kidney failure, unspecified; I47.10 Supraventricular tachycardia, unspecified; J84.9 Interstitial pulmonary disease, unspecified; J96.11 Chronic respiratory failure with hypoxia; N39.0 Urinary tract infection, site not specified; N18.31 Chronic kidney disease, stage 3a; I27.20 Pulmonary hypertension, unspecified; E03.9 Hypothyroidism, unspecified; E11.22 Type 2 diabetes mellitus with diabetic chronic kidney disease; Z79.4 Long term (current) use of insulin; E78.00 Pure hypercholesterolemia, unspecified; Z79.890 Hormone replacement therapy; I95.9 Hypotension, unspecified; E86.1 Hypovolemia; I16.0 Hypertensive urgency; I1A.0 Resistant hypertension; K64.9 Unspecified hemorrhoids; M06.9 Rheumatoid arthritis, unspecified; S00.03XA Contusion of scalp, initial encounter; T50.2X5A Adverse effect of carbonic-anhydrase inhibitors, benzothiadiazides and other diuretics, initial encounter; W19.XXXA Unspecified fall, initial encounter; Z79.52 Long term (current) use of systemic steroids; Z79.899 Other long term (current) drug therapy; Z99.81 Dependence on supplemental oxygen; Z11.52 Encounter for screening for COVID-19
CPT/HCPCS: 36600; 70450; 71046; 72125; 80048; 80053; 81003; 81015; 82533; 82805; 82962; 83036; 83735; 83880; 83930; 83935; 84295; 84300; 84443; 85014; 85018; 85025; 85027; 87045; 87046; 87077; 87086; 87186; 87427; 87502; 87811; 93005; 93975; 94660; 96365; 96366; 97116; 97163; 97167; 97530; 97535; 99285